=== PATIENT | male | born 1945 | race Two or more races ===

== ENCOUNTER 2021-01-11 12:01 | Emergency (ER) | payer MEDICARE, SELFPAY ==
--- NOTE | ~2021-01-11 | US_ITS ---
EXAMINATION: US SCROTUM CLINICAL INFORMATION: Pain. History of pump. COMPARISON: None TECHNIQUE: A sonogram of the scrotum was performed assessing malin-scale appearance and color Doppler flow. Spectral Doppler analysis of the arterial and venous flow were performed in the testes bilaterally. FINDINGS: RIGHT: Right testicle measures 4.4 x 1.7 x 3.1 cm, volume 11.6 mL. Tiny incidental calcifications but no focal testicular parenchymal lesions are visualized. Spectral Doppler analysis of the arterial and venous flow is normal in the right testis. Right epididymal head is normal in size. Small right hydrocele with debris. No varicocele is seen. Right epididymal Doppler flow is normal. LEFT: Left testicle measures 4.0 x 1.9 x 2.9 cm, volume 11.2 mL. Tiny cortical calcifications. Focal testicular parenchymal lesions are visualized. Spectral Doppler analysis of the arterial and venous flow is normal in the left testis. Left epididymal head is normal in size. Small left hydrocele with debris. No varicocele is seen. Left epididymal Doppler flow is normal. Small left inguinal hernia cannot be excluded. Midline pump is partially visualized on the study US/US scrotum doppler IMPRESSION: Tiny calcifications bilaterally. Tiny bilateral hydroceles. Testicles and epididymides unremarkable otherwise. Midline pump is partially visualized but difficult to define further on this ultrasound.
--- NOTE | ~2021-01-11 | US_ITS ---
EXAMINATION: US SCROTUM CLINICAL INFORMATION: Pain. History of pump. COMPARISON: None TECHNIQUE: A sonogram of the scrotum was performed assessing malin-scale appearance and color Doppler flow. Spectral Doppler analysis of the arterial and venous flow were performed in the testes bilaterally. FINDINGS: RIGHT: Right testicle measures 4.4 x 1.7 x 3.1 cm, volume 11.6 mL. Tiny incidental calcifications but no focal testicular parenchymal lesions are visualized. Spectral Doppler analysis of the arterial and venous flow is normal in the right testis. Right epididymal head is normal in size. Small right hydrocele with debris. No varicocele is seen. Right epididymal Doppler flow is normal. LEFT: Left testicle measures 4.0 x 1.9 x 2.9 cm, volume 11.2 mL. Tiny cortical calcifications. Focal testicular parenchymal lesions are visualized. Spectral Doppler analysis of the arterial and venous flow is normal in the left testis. Left epididymal head is normal in size. Small left hydrocele with debris. No varicocele is seen. Left epididymal Doppler flow is normal. Small left inguinal hernia cannot be excluded. Midline pump is partially visualized on the study US/US scrotum IMPRESSION: Tiny calcifications bilaterally. Tiny bilateral hydroceles. Testicles and epididymides unremarkable otherwise. Midline pump is partially visualized but difficult to define further on this ultrasound.
[2021-01-11 12:32] VITALS: BP 171/84; PULSE 85; RESP 18; TEMP 36.7; O2SAT 100; BMI 30.8
--- NOTE | 2021-01-11 17:28 | ED.MALEGU ---
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 pylori who is presenting with dysuria for the last 6 weeks. He reports difficulty urinating and tender penile base and testicles. He states he is up 15 times per night trying to empty his bladder. He denies hematuria, fever, chills, flank pain. He reports intermittent suprapubic pain when he can't empty his bladder. He had not followed up with Urology in a long time, because he did not get along with the doctor. MD Complaint: dysuria Onset (ago): week(s) (6) Duration: constant Location: penis, right testicle and left testicle Radiation: abdomen Severity: moderate Quality: aching and burning Relieving factors: none Exacerbating factors: urination and palpation Associated symptoms: Reports urinary retention and dysuria Related Data Sexually active: Yes Home Medications Medication Instructions Recorded Confirmed ibuprofen 800 mg tablet 800 mg PO TID 08/06/20 lisinopril 10 mg tablet 10 mg PO DAILY 08/06/20 Previous Rx's Medication Instructions Recorded omeprazole 20 mg capsule,delayed 20 mg PO DAILY 90 Days #90 cap 09/22/20 release meclizine 25 mg tablet 25 mg PO DAILY PRN 30 Days #30 tab 12/01/20 cefuroxime axetil 250 mg PO BID 7 Days #14 tab 01/11/21 Allergies Allergy/AdvReac Type Severity Reaction Status Date / Time No Known Allergies Allergy Verified 01/11/21 12:38 [No Known Allergies*] Review of Systems Review of Systems: Constitutional: No Fever, No Chills Cardiovascular: No Chest Pain, No SOB Respiratory: No Cough, No Sputum Gastrointestinal: No Nausea, No Vomiting, No Diarrhea, No abdominal Pain Genitourinary: + Dysuria, + Urinary Frequency, No Hematuria, +urgency, +testicular tenderness Musculoskeletal: No joint pain, No Myalgias Skin: No Skin Lesions, No rash Neuro: No Weakness, No Numbness, No Dizziness, No Headache Psych: No Anxiety/Panic, No Depression Heme/Lymph: No Bruising, No Lymphadenopathy Endocrine: No Polyuria, No Polydipsia PMFSH Past Medical History Attestation statement: The following information was validated with the patient. Medical History Dizziness Hypertension Loss of balance Surgical History (Updated 08/06/20 @ 13:14 by ASIYA Gray) History of kidney stones History of prostatectomy Hx laparoscopic cholecystectomy Family History Family History (Updated 08/06/20 @ 13:15 by ASIYA Gray) Father No problems noted. Mother Cancer Maternal Grandfather Cancer Social History Social History (Updated 12/01/20 @ 10:50 by Hiral Nicole) Alcohol intake: former Smoking Status: Former smoker Tobacco Type: Cigarette Use of substances other than those prescribed or required for medical reasons: No Advance Directives: No Advance Directives Information Provided: No Physical Exam Vital Signs: Vital Signs: Last Vital Signs Temp 97.5 F 01/11/21 20:22 Pulse 94 01/11/21 20:22 Resp 18 01/11/21 20:22 BP 146/87 H 01/11/21 20:22 Pulse Ox 97 01/11/21 20:22 Body Mass Index 30.8 Appearance: Alert. Oriented X3. No acute distress. Eyes: Pupils equal, round and reactive to light. ENT: Pharynx normal. Neck: Normal inspection. Neck supple. CVS: Normal heart rate and rhythm. Pulses normal. Respiratory: No respiratory distress. Breath sounds normal. Abdomen: Soft, suprapubic tenderness. +BS x4 : palpable penile implant, tender at the penile base. tender epididymus bilaterally, no skin changes, no penile discharge at meatus. Skin: Skin warm and dry. Normal skin color. Normal skin turgor. No rashes. Extremities: No lower extremity edema. Neuro: Oriented X 3. No motor deficit. No sensory deficit. Course Course Course Narrative: 75 y/o male presenting with dysuria, urinary frequency and difficulty emptying his bladder. Seems these issues have been on/off for years, acutely worsening in the last few weeks. He is afebrile and non-toxic appearing. Doubt sepsis. He has no flank pain or hematuria, doubt kidney stones. Will get basic blood workup and UA w/ reflex, PVR. He had bloodwork done end of November that showed BUN/Cr 17/.51 he reports a history of chronic kidney disease but does not know his baseline kidney function off hand. Will need to r/o obstructive uropathy if renal function is acutely worsening. Reevaluation(s) Reevaluation #1: UA is positive for infection. Dose of IV rocephin given here. Awaiting chemistry, hemolyzed and took multiple attempts at redraw. PVR negative. Reevaluation #2: Labs showing slight worsening in his renal function. but he is voiding well here. Comfortable with discharge home with plans to get bloodwork done by his PCP later this week. Will treat UTI with Ceftin. Patient agrees wtih the plan and will contact his PCP tomorrow to arrange follow up and repeat blood work. MDM - Male Genitourinary Lab Data Result diagrams: 01/11/21 17:49 01/11/21 20:20 Labs: Lab Results 01/11/21 01/11/21 01/11/21 Range/Units 17:49 17:49 17:55 WBC 9.4 (4.8-10.8) X10*3/uL RBC 4.55 L (4.60-5.80) X10*6/uL Hgb 13.1 L (14.0-18.0) g/dl Hct 41.4 L (42-52) % MCV 91.0 (80-98) fL MCH 28.8 (27.0-33.0) pg MCHC 31.6 (31.0-36.0) g/dl RDW 13.7 (11.0-16.0) % Plt Count 265 (160-400) X10*3/uL MPV 9.8 (9.4-12.4) fL Immature Gran % (Auto) 0.5 H (0.0-0.4) % Neut % (Auto) 85.5 H (45-73) % Lymph % (Auto) 7.4 L (20-40) % [place] % (Auto) 5.2 (2-11) % Eos % (Auto) 1.1 (0-4) % Baso % (Auto) 0.3 (0-2) % Lymph # (Auto) 0.7 L (1.2-4.9) X10*3/uL [place] # (Auto) 0.5 (0.1-1.2) X10*3/uL Eos # (Auto) 0.1 (0.0-0.4) X10*3/uL Baso # (Auto) 0.0 (0.0-0.2) X10*3/uL Abs Immat Gran (auto) 0.05 H (0.00-0.03) X10*3/uL Absolute Neuts (auto) 8.1 (2.0-8.3) X10*3/uL Absolute Nucleated RBC 0.000 (0.0-0.012) X10*3/uL Nucleated RBC % (auto) 0.0 (0.0-0.2) /100WBC Hold Blue Top SEE NOTE Sodium (135-145) mmol/L Potassium (3.3-5.1) mmol/L Chloride (96-108) mmol/L Carbon Dioxide (22-29) mmol/L Anion Gap (12-20) BUN (9-16) mg/dL Creatinine (0.5-1.4) mg/dL Estim Creat Clear Calc Estimated GFR Random Glucose (60-115) mg/dL Calcium (8.4-10.2) mg/dL Urine Color YELLOW Urine Appearance HAZY Urine pH 6.0 (5.0-8.0) Ur Specific [place] 1.020 (1.005-1.025) Urine Protein 2+ H (NEG-TRACE) MG/DL Urine Glucose (UA) NEG (NEG) MG/DL Urine Ketones 5 (NEG) MG/DL Urine Blood 2+ H (NEG) Urine Nitrite NEG (NEG) Ur Leukocyte Esterase 2+ H (NEG) Urine RBC 10-14 H (0) /HPF Urine WBC TNTC H (0-4) /HPF Ur Squamous Epith Cells NONE /LPF Urine Bacteria 2+ /LPF 01/11/21 Range/Units 20:20 WBC (4.8-10.8) X10*3/uL RBC (4.60-5.80) X10*6/uL Hgb (14.0-18.0) g/dl Hct (42-52) % MCV (80-98) fL MCH (27.0-33.0) pg MCHC (31.0-36.0) g/dl RDW (11.0-16.0) % Plt Count (160-400) X10*3/uL MPV (9.4-12.4) fL Immature Gran % (Auto) (0.0-0.4) % Neut % (Auto) (45-73) % Lymph % (Auto) (20-40) % [place] % (Auto) (2-11) % Eos % (Auto) (0-4) % Baso % (Auto) (0-2) % Lymph # (Auto) (1.2-4.9) X10*3/uL [place] # (Auto) (0.1-1.2) X10*3/uL Eos # (Auto) (0.0-0.4) X10*3/uL Baso # (Auto) (0.0-0.2) X10*3/uL Abs Immat Gran (auto) (0.00-0.03) X10*3/uL Absolute Neuts (auto) (2.0-8.3) X10*3/uL Absolute Nucleated RBC (0.0-0.012) X10*3/uL Nucleated RBC % (auto) (0.0-0.2) /100WBC Hold Blue Top Sodium 139 (135-145) mmol/L Potassium 4.6 (3.3-5.1) mmol/L Chloride 104 (96-108) mmol/L Carbon Dioxide 25 (22-29) mmol/L Anion Gap 15 (12-20) BUN 21 H (9-16) mg/dL Creatinine 1.78 H (0.5-1.4) mg/dL Estim Creat Clear Calc 39.4 Estimated GFR 38 Random Glucose 127 H (60-115) mg/dL Calcium 9.1 (8.4-10.2) mg/dL Urine Color Urine Appearance Urine pH (5.0-8.0) Ur Specific [place] (1.005-1.025) Urine Protein (NEG-TRACE) MG/DL Urine Glucose (UA) (NEG) MG/DL Urine Ketones (NEG) MG/DL Urine Blood (NEG) Urine Nitrite (NEG) Ur Leukocyte Esterase (NEG) Urine RBC (0) /HPF Urine WBC (0-4) /HPF Ur Squamous Epith Cells /LPF Urine Bacteria /LPF Discharge Plan Discharge Clinical Impression: Urinary tract infection Qualifiers: Urinary tract infection type: acute cystitis Hematuria presence: with hematuria Qualified Code(s): N30.01 - Acute cystitis with hematuria Patient Disposition: Home, Self-Care Instructions: Urinary Tract Infection in Men (ED) Additional Instructions: Your urine test today showed infection. Take the prescribed antibiotics as directed. You kidney function with slightly worse than it was at the end of November. Follow up with your doctor this week for repeat blood work. Do not take any NSAID medications including Motrin, Advil, Ibuprofen. This can worsen kidney problems. Follow up with the Urologist for ongoing issues and pain. Prescriptions: New cefuroxime axetil 250 mg tablet 250 mg PO BID 7 Days Qty: 14 RF: 0 No Action omeprazole 20 mg capsule,delayed release(DR/EC) 20 mg PO DAILY 90 Days Qty: 90 RF: 3 ibuprofen 800 mg tablet 800 mg PO TID RF: 0 lisinopril 10 mg tablet 10 mg PO DAILY RF: 0 meclizine 25 mg tablet 25 mg PO DAILY PRN (Reason: motion sickness) 30 Days Qty: 30 RF: 0 Referrals: John Osman MD [Physician] - 2 days
[2021-01-11 17:56] VITALS: BP 142/81; PULSE 100; RESP 18; TEMP 37.6; O2SAT 99
[2021-01-11 17:56] LABS: MANUAL DIFF FLAG NO
[2021-01-11 17:59] LABS: Basophils Percent Auto 0.3 % (0-2); Eosinophils Absolute Auto 0.1 X10*3/uL (0.0-0.4); Eosinophils Percent Auto 1.1 % (0-4); Hematocrit 41.4 % (42-52); Hemoglobin 13.1 g/dl (14.0-18.0); Imm Gran Abs Auto 0.05 X10*3/uL (0.00-0.03); Imm Gran Pct Auto 0.5 % (0.0-0.4); Lymphocytes Absolute Auto 0.7 X10*3/uL (1.2-4.9); Lymphocytes Percent Auto 7.4 % (20-40); Mean Corpuscular HGB Conc 31.6 g/dl (31.0-36.0); Mean Corpuscular Hemoglobin 28.8 pg (27.0-33.0); Mean Platelet Volume 9.8 fL (9.4-12.4); Monocytes Absolute Auto 0.5 X10*3/uL (0.1-1.2); Monocytes Percent Auto 5.2 % (2-11); Neutrophils Absolute Auto 8.1 X10*3/uL (2.0-8.3); Neutrophils Percent Auto 85.5 % (45-73); Platelet Count 265 X10*3/uL (160-400); Red Blood Count 4.55 X10*6/uL (4.60-5.80); Red Cell Distribution Width 13.7 % (11.0-16.0); White Blood Count 9.4 X10*3/uL (4.8-10.8)
--- NOTE | 2021-01-11 17:59 | PC.NURSE ---
iv inserted, labs drawn, urine obtained, pt awaiting us.
[2021-01-11 18:04] LABS: Glucose Urine UA NEG (NEG); Leukocyte Esterase Urine 2+ (NEG); Nitrite Urine NEG (NEG); UACC Culture Trigger YES; Urine Blood 2+ (NEG); Urine Ketones 5 MG/DL (NEG); Urine Protein 2+ MG/DL (NEG-TRACE)
[2021-01-11 18:06] LABS: Appearance Urine HAZY; Color Urine YELLOW
--- NOTE | 2021-01-11 18:08 | PC.NURSE ---
bladder scan performed
[2021-01-11 18:18] LABS: WBC Urine TNTC /HPF (0-4)
[2021-01-11 18:19] LABS: Bacteria Urine 2+ /LPF
[2021-01-11] MEDS: cefTRIAXone sodium 1 GM in 0.9 % Sodium Chloride 50 ML IV (19:52)
--- NOTE | 2021-01-11 20:19 | PC.NURSE ---
iv antibiotics running per order
[2021-01-11 20:22] VITALS: BP 146/87; PULSE 94; RESP 18; TEMP 36.4; O2SAT 97
[2021-01-11 20:55] LABS: Anion Gap 15 (12-20); Blood Urea Nitrogen 21 mg/dL (9-16); Calcium 9.1 mg/dL (8.4-10.2); Carbon Dioxide 25 mmol/L (22-29); Chloride 104 mmol/L (96-108); Creatinine Clr Calc Pharmacy 39.4; Estimated Glomerular Filt Rate 38; Glucose Random 127 mg/dL (60-115); Potassium 4.6 mmol/L (3.3-5.1); Sodium 139 mmol/L (135-145)
== END 2021-01-11 22:04 | disposition home or self-care (01) ==
PROVIDERS: Physician Assistant; Emergency Provider Internal Medicine; PCP Internal Medicine
DX: N30.01 Acute cystitis with hematuria (principal); I12.9 Hypertensive chronic kidney disease with stage 1 through stage 4 chronic kidney disease, or unspecified chronic kidney disease; N18.9 Chronic kidney disease, unspecified; Z85.46 Personal history of malignant neoplasm of prostate; F17.210 Nicotine dependence, cigarettes, uncomplicated
CPT/HCPCS: 36415; 51798; 76870; 80048; 81001; 81003; 85025; 87086; 87088; 87186; 93975; 96361; 96365; 99285; J0696

== ENCOUNTER 2021-01-19 07:57 | Outpatient (REF) | payer MEDICARE, SELFPAY ==
--- NOTE | ~2021-01-19 | US_ITS ---
EXAMINATION: US RETROPERITONEAL LIMITED (RENAL ONLY) CLINICAL INFORMATION: Chronic kidney disease stage III. COMPARISON: Ultrasound renal 07/13/2016 and 03/06/2015. TECHNIQUE: Real-time imaging of the kidneys. FINDINGS: RIGHT KIDNEY: 10.1 x 4.9 x 4.9 cm (SAG x AP x TRV). The kidney is normal in size, contour, and echogenicity. Renal cortical thickness is normal. No renal calculi or hydronephrosis. There are multiple anechoic cysts. 1. Upper pole cyst measures 2.1 x 1.8 x 2.2 cm. 2. Midpole cyst measures 3.8 x 3.5 x 3.9 cm and 2.8 x 2.3 x 3.1 cm. 3. Lower pole cyst measures 1.2 x 1.2 x 1.0 cm. The cyst were visualized on previous exam but not measured. LEFT KIDNEY: 10.8 x 5.0 x 4.6 cm (SAG x AP x TRV). The kidney is normal in size, lobulated contour, and normal echogenicity. Renal cortical thickness is normal. No renal calculi or hydronephrosis. There are multiple anechoic cysts seen. 1. A midpole cyst measures 2.5 x 2.9 x 2.8 cm and 0.8 x 0.7 x 0.8 cm. 2. A lower pole cyst measures 1.1 x 1.3 x 1.3 cm. These were not reported on the previous exam 2015. US/US renal BI IMPRESSION: Bilateral renal cysts which are more obvious on the present exam compared to 2016. There are no echogenic renal calculi or hydronephrosis.
[2021-01-19 08:48] LABS: Hematocrit 44.7 % (42-52); Hemoglobin 13.5 g/dl (14.0-18.0); Mean Corpuscular HGB Conc 30.2 g/dl (31.0-36.0); Mean Corpuscular Volume 92.5 fL (80-98); Mean Platelet Volume 10.8 fL (9.4-12.4); Platelet Count 388 X10*3/uL (160-400); Red Blood Count 4.83 X10*6/uL (4.60-5.80); Red Cell Distribution Width 13.6 % (11.0-16.0)
[2021-01-19 09:21] LABS: Anion Gap 15 (12-20); Blood Urea Nitrogen 30 mg/dL (9-16); Carbon Dioxide 26 mmol/L (22-29); Chloride 103 mmol/L (96-108); Estimated Glomerular Filt Rate 39; Iron 69 mcg/dL (45-160); Magnesium 2.1 mg/dL (1.6-2.6); Percent Iron Saturation 26 % (15-50); Potassium 5.8 mmol/L (3.3-5.1); Sodium 138 mmol/L (135-145); Total Iron Binding Capacity 268 mcg/dL (228-428); Unsaturated Iron Binding 199 ug/dL
[2021-01-19 09:34] LABS: Ferritin 224 ng/mL (20-250); Vitamin D 25-OH Total 31.9 ng/mL (>30)
[2021-01-20 16:36] LABS: Calcium (PTHI) 10.2 mg/dL (8.6-10.3); PTHI 73 pg/mL (14-64)
== END 2021-01-19 07:58 | disposition home or self-care (01) ==
LOC: HO.US 07:57
PROVIDERS: PCP Internal Medicine; Visit Provider Internal Medicine Nephrology
DX: I12.9 Hypertensive chronic kidney disease with stage 1 through stage 4 chronic kidney disease, or unspecified chronic kidney disease (principal); N18.30 Chronic kidney disease, stage 3 unspecified
CPT/HCPCS: 36415; 76775; 80051; 82306; 82310; 82565; 82728; 83540; 83735; 83970; 84100; 84520; 85027

== ENCOUNTER → 2021-02-02 08:54 | Outpatient (BNVA) | payer MEDICARE, SELFPAY | PROVIDERS: PCP Internal Medicine; Visit Provider Urology | DX: N39.0 Urinary tract infection, site not specified (principal); C61 Malignant neoplasm of prostate; N99.89 Other postprocedural complications and disorders of genitourinary system | CPT/HCPCS: 99212 ==

== ENCOUNTER 2021-02-10 13:31 | Emergency (ER) | payer MEDICARE, SELFPAY ==
--- NOTE | ~2021-02-10 | US_ITS ---
EXAMINATION: US SCROTUM CLINICAL INFORMATION: Bilateral testicular pain with positive drainage.. COMPARISON: None TECHNIQUE: A sonogram of the scrotum was performed assessing malin-scale appearance and color Doppler flow. Spectral Doppler analysis of the arterial and venous flow were performed in the testes bilaterally. FINDINGS: RIGHT: Right testicle measures 3.6 x 1.9 x 2.6 cm, volume 9.3 mL. No focal testicular parenchymal lesions are visualized. Spectral Doppler analysis of the arterial and venous flow is normal in the right testis. There is echogenic calcification in right testes. Right epididymal head is normal in size. There is a small right hydrocele. No varicocele is seen. Right epididymal Doppler flow is increased likely from underlying epididymitis. LEFT: Left testicle measures 3.9 x 2.3 x 2.4 cm, volume 11.3 mL. There is mild heterogenous echotexture of the left testes. Spectral Doppler analysis of the arterial and venous flow is increased in the left testis. Left epididymal head is normal in size. There is anechoic cyst in the epidural head measuring 0.2 x 0.1 x 0.2 cm. Small left hydrocele is noted. No varicocele is seen. Left epididymal Doppler flow is increased. There is hypervascular scrotal skin. There are 2 larger lumps visualized within the scrotum. Suspect small left scrotal hernia. US/US scrotum doppler IMPRESSION: Heterogeneous left testes but no focal lesion seen. Hypervascular left testes, left epididymis likely epididymo-orchitis. Hypervascular right epididymis likely epididymitis. Bilateral small hydroceles. Nonspecific right testicular calcification. Small left epididymal cyst. Suspect left scrotal hernia containing fat. Hypervascular scrotal skin likely inflammatory changes.
--- NOTE | ~2021-02-10 | US_ITS ---
EXAMINATION: US SCROTUM CLINICAL INFORMATION: Bilateral testicular pain with positive drainage.. COMPARISON: None TECHNIQUE: A sonogram of the scrotum was performed assessing malin-scale appearance and color Doppler flow. Spectral Doppler analysis of the arterial and venous flow were performed in the testes bilaterally. FINDINGS: RIGHT: Right testicle measures 3.6 x 1.9 x 2.6 cm, volume 9.3 mL. No focal testicular parenchymal lesions are visualized. Spectral Doppler analysis of the arterial and venous flow is normal in the right testis. There is echogenic calcification in right testes. Right epididymal head is normal in size. There is a small right hydrocele. No varicocele is seen. Right epididymal Doppler flow is increased likely from underlying epididymitis. LEFT: Left testicle measures 3.9 x 2.3 x 2.4 cm, volume 11.3 mL. There is mild heterogenous echotexture of the left testes. Spectral Doppler analysis of the arterial and venous flow is increased in the left testis. Left epididymal head is normal in size. There is anechoic cyst in the epidural head measuring 0.2 x 0.1 x 0.2 cm. Small left hydrocele is noted. No varicocele is seen. Left epididymal Doppler flow is increased. There is hypervascular scrotal skin. There are 2 larger lumps visualized within the scrotum. Suspect small left scrotal hernia. US/US scrotum IMPRESSION: Heterogeneous left testes but no focal lesion seen. Hypervascular left testes, left epididymis likely epididymo-orchitis. Hypervascular right epididymis likely epididymitis. Bilateral small hydroceles. Nonspecific right testicular calcification. Small left epididymal cyst. Suspect left scrotal hernia containing fat. Hypervascular scrotal skin likely inflammatory changes.
[2021-02-10 14:06] VITALS: BP 128/89; PULSE 92; RESP 16; TEMP 36.8; O2SAT 99; BMI 29.2
--- NOTE | 2021-02-10 14:59 | ED.MALEGU ---
HPI - Male Genitourinary General Chief complaint: Urogenital-Male Stated complaint: URINARY INFECTION Time Seen by Provider: 02/10/21 14:23 Source: patient Mode of arrival: ambulatory History of Present Illness HPI Narrative: 75-year-old male with a past medical history of GERD, HTN, prostate cancer, urgency incontinence, anastomotic stricture of the urinary tract, s/p penile prosthetic placement, presenting to the ED complaining of acute on chronic worsening scrotal pain and pus discharge x 3-5 days. Also reporting urine is coming from beneath penis rather than urethra. Admits to dysuria. Denies fever, chills, nausea/vomiting, abdominal pain, flank pain, penile discharge/lesions. Denies being sexually active/concern for STIs MD Complaint: testicle pain, testicle swelling and dysuria Related Data Home Medications Medication Instructions Recorded Confirmed ibuprofen 800 mg tablet 800 mg PO TID 08/06/20 lisinopril 10 mg tablet 10 mg PO DAILY 08/06/20 clindamycin HCl 150 mg capsule 150 mg PO Q6H 02/02/21 Previous Rx's Medication Instructions Recorded omeprazole 20 mg capsule,delayed 20 mg PO DAILY 90 Days #90 cap 09/22/20 release meclizine 25 mg tablet 25 mg PO DAILY PRN 30 Days #30 tab 12/01/20 cefuroxime axetil 250 mg PO BID 7 Days #14 tab 01/11/21 Allergies Allergy/AdvReac Type Severity Reaction Status Date / Time No Known Allergies Allergy Verified 01/11/21 12:38 [No Known Allergies*] Review of Systems Review of Systems: Constitutional: No Fever, No Chills, No Fatigue, No Malaise Cardiovascular: No Chest Pain, No SOB Respiratory: No Cough, No Dyspnea Gastrointestinal: No Nausea, No Vomiting, No Diarrhea, No Constipation, No Abdominal pain Genitourinary: No irregular bleeding, + Dysuria, No Hematuria, No Urgency, No Flank Pain, No Urinary Flow Changes, +scrotal pain, +scrotal pus discharge Musculoskeletal: No joint pain, No Myalgias, No Joint Swelling Skin: No Skin Lesions, No rash Neuro: No Weakness, No Numbness, No Headache PMFSH Past Medical History Attestation statement: The following information was validated with the patient. Medical History (Updated 02/10/21 @ 18:06 by JUAN M Perez) Anastomotic stricture of urinary tract Dizziness GERD (gastroesophageal reflux disease) HTN (hypertension) Hypertension Loss of balance Prostate cancer Urgency incontinence Surgical History History of kidney stones History of prostatectomy History of prostatectomy Hx laparoscopic cholecystectomy Family History Family History Father No problems noted. Mother Cancer Maternal Grandfather Cancer Social History Social History Alcohol intake: never Smoking Status: Heavy tobacco smoker Tobacco Type: Cigarette Use of substances other than those prescribed or required for medical reasons: No Advance Directives: No Advance Directives Information Provided: No Physical Exam Vital Signs: Vital Signs: Last Vital Signs Temp 99.0 F 02/10/21 16:38 Pulse 90 02/10/21 16:38 Resp 18 02/10/21 16:38 BP 106/79 02/10/21 16:38 Pulse Ox 100 02/10/21 16:38 Body Mass Index 29.2 Const: General: cooperative and healthy appearing Orientation/consciousness: patient oriented x3 Limitations: no limitations HENMT: Head: Yes normal to inspection Ears: hearing grossly normal bilaterally General nose exam: Normal external nose present Face and sinus: Yes normal facial exam Eyes: General: appearance normal, both eyes and all related structures EOM: EOMs intact bilaterally Neck: Neck: Yes normal visual inspection Resp: Effort & Inspection: normal respiratory effort Cardio: Rate: regular rate GI: Inspection: Yes normal to inspection Palpation (GI): Soft to palpation, nontender, no guarding and not rigid : Other: +bilateral scrotal tenderness. +indurated area noted to superior aspect testicles, no expressible pus drainage, no fluctuance, no cellulitis No appreciable extra urethral tract Penis: circumcised Skin: Rashes: no rashes Wounds: no wounds Neuro: General: patient oriented x3 Extrem: General: Yes normal to inspection Course Course Course Narrative: -no leukocytosis, potassium mildly elevated > p.o. Kayexalate ordered -renal function at patient's baseline, UA chronically infected (milton sensitive on prior Cx) US scrotum IMPRESSION: Heterogeneous left testes but no focal lesion seen. Hypervascular left testes, left epididymis likely epididymo-orchitis. Hypervascular right epididymis likely epididymitis. Bilateral small hydroceles. Nonspecific right testicular calcification. Small left epididymal cyst. Suspect left scrotal hernia containing fat. Hypervascular scrotal skin likely inflammatory changes >> Case discussed with urology, Dr. Osman who evaluated patient in the ED, recommended initiation of Bactrim. Patient was given 1st dose of Bactrim in the ED. Patient is already scheduled for the OR on Monday. Results were discussed with patient including worrisome signs and symptoms and strict return precautions, importance of procedure on Monday, he verbalized understanding feel safe for discharge home MDM - Male Genitourinary MDM Narrative Medical decision making narrative: 75-year-old male with a past medical history of GERD, HTN, prostate cancer, urgency incontinence, anastomotic stricture of the urinary tract, s/p penile prosthetic placement, presenting to the ED complaining of acute on chronic worsening scrotal pain and pus discharge x 3-5 days. Also reporting urine is coming from beneath penis rather than urethra. On exam VSS, NAD, physical exam as above. Concern for UTI vs scrotal abscess vs epididymitis/orchitis vs penile implant complication/infection. Lower concern for testicular torsion/pyelo/renal stone Plan: Labs, UA, testicular ultrasound, consult Urology Medical Records Attestation: I reviewed the patient's medical records. Lab Data Attestation: I reviewed the patient's lab results. Result diagrams: 02/10/21 15:07 02/10/21 15:07 Labs: Lab Results 02/10/21 02/10/21 02/10/21 Range/Units 15:07 15:07 15:07 WBC 8.8 (4.8-10.8) X10*3/uL RBC 4.20 L (4.60-5.80) X10*6/uL Hgb 11.8 L (14.0-18.0) g/dl Hct 38.1 L (42-52) % MCV 90.7 (80-98) fL MCH 28.1 (27.0-33.0) pg MCHC 31.0 (31.0-36.0) g/dl RDW 13.5 (11.0-16.0) % Plt Count 274 D (160-400) X10*3/uL MPV 9.5 (9.4-12.4) fL Immature Gran % (Auto) 1.3 H (0.0-0.4) % Neut % (Auto) 67.7 (45-73) % Lymph % (Auto) 19.3 L (20-40) % [place] % (Auto) 9.7 (2-11) % Eos % (Auto) 1.7 (0-4) % Baso % (Auto) 0.3 (0-2) % Lymph # (Auto) 1.7 (1.2-4.9) X10*3/uL [place] # (Auto) 0.9 (0.1-1.2) X10*3/uL Eos # (Auto) 0.2 (0.0-0.4) X10*3/uL Baso # (Auto) 0.0 (0.0-0.2) X10*3/uL Abs Immat Gran (auto) 0.11 H (0.00-0.03) X10*3/uL Absolute Neuts (auto) 5.9 (2.0-8.3) X10*3/uL Absolute Nucleated RBC 0.000 (0.0-0.012) X10*3/uL Nucleated RBC % (auto) 0.0 (0.0-0.2) /100WBC Hold Blue Top SEE NOTE Sodium 138 (135-145) mmol/L Potassium 5.5 H (3.3-5.1) mmol/L Chloride 105 (96-108) mmol/L Carbon Dioxide 23 (22-29) mmol/L Anion Gap 16 (12-20) BUN 28 H (9-16) mg/dL Creatinine 1.65 H (0.5-1.4) mg/dL Estim Creat Clear Calc 41.5 Estimated GFR 41 Random Glucose 100 (60-115) mg/dL Calcium 9.7 (8.4-10.2) mg/dL Urine Color Urine Appearance Urine pH (5.0-8.0) Ur Specific [place] (1.005-1.025) Urine Protein (NEG-TRACE) MG/DL Urine Glucose (UA) (NEG) MG/DL Urine Ketones (NEG) MG/DL Urine Blood (NEG) Urine Nitrite (NEG) Ur Leukocyte Esterase (NEG) Urine RBC (0) /HPF Urine WBC (0-4) /HPF Ur Squamous Epith Cells /LPF Urine Bacteria /LPF 02/10/21 Range/Units 16:40 WBC (4.8-10.8) X10*3/uL RBC (4.60-5.80) X10*6/uL Hgb (14.0-18.0) g/dl Hct (42-52) % MCV (80-98) fL MCH (27.0-33.0) pg MCHC (31.0-36.0) g/dl RDW (11.0-16.0) % Plt Count (160-400) X10*3/uL MPV (9.4-12.4) fL Immature Gran % (Auto) (0.0-0.4) % Neut % (Auto) (45-73) % Lymph % (Auto) (20-40) % [place] % (Auto) (2-11) % Eos % (Auto) (0-4) % Baso % (Auto) (0-2) % Lymph # (Auto) (1.2-4.9) X10*3/uL [place] # (Auto) (0.1-1.2) X10*3/uL Eos # (Auto) (0.0-0.4) X10*3/uL Baso # (Auto) (0.0-0.2) X10*3/uL Abs Immat Gran (auto) (0.00-0.03) X10*3/uL Absolute Neuts (auto) (2.0-8.3) X10*3/uL Absolute Nucleated RBC (0.0-0.012) X10*3/uL Nucleated RBC % (auto) (0.0-0.2) /100WBC Hold Blue Top Sodium (135-145) mmol/L Potassium (3.3-5.1) mmol/L Chloride (96-108) mmol/L Carbon Dioxide (22-29) mmol/L Anion Gap (12-20) BUN (9-16) mg/dL Creatinine (0.5-1.4) mg/dL Estim Creat Clear Calc Estimated GFR Random Glucose (60-115) mg/dL Calcium (8.4-10.2) mg/dL Urine Color YELLOW Urine Appearance CLOUDY Urine pH 6.0 (5.0-8.0) Ur Specific [place] 1.015 (1.005-1.025) Urine Protein NEG (NEG-TRACE) MG/DL Urine Glucose (UA) NEG (NEG) MG/DL Urine Ketones NEG (NEG) MG/DL Urine Blood 1+ H (NEG) Urine Nitrite NEG (NEG) Ur Leukocyte Esterase 3+ H (NEG) Urine RBC 5-9 H (0) /HPF Urine WBC TNTC H (0-4) /HPF Ur Squamous Epith Cells NONE /LPF Urine Bacteria 2+ /LPF Discharge Plan Discharge Clinical Impression: Acute epididymo-orchitis, Chronic UTI, Abscess Patient Disposition: Home, Self-Care Instructions: Urinary Tract Infection in Men (ED), Scrotal Pain (ED) Prescriptions: No Action omeprazole 20 mg capsule,delayed release(DR/EC) 20 mg PO DAILY 90 Days Qty: 90 RF: 3 cefuroxime axetil 250 mg tablet 250 mg PO BID 7 Days Qty: 14 RF: 0 ibuprofen 800 mg tablet 800 mg PO TID RF: 0 lisinopril 10 mg tablet 10 mg PO DAILY RF: 0 meclizine 25 mg tablet 25 mg PO DAILY PRN (Reason: motion sickness) 30 Days Qty: 30 RF: 0 Referrals: John Osman MD [Primary Care Provider] - 5 days (As scheduled)
[2021-02-10 15:12] LABS: MANUAL DIFF FLAG NO
[2021-02-10 15:13] LABS: Basophils Percent Auto 0.3 % (0-2); Eosinophils Absolute Auto 0.2 X10*3/uL (0.0-0.4); Eosinophils Percent Auto 1.7 % (0-4); Hematocrit 38.1 % (42-52); Hemoglobin 11.8 g/dl (14.0-18.0); Imm Gran Abs Auto 0.11 X10*3/uL (0.00-0.03); Imm Gran Pct Auto 1.3 % (0.0-0.4); Lymphocytes Absolute Auto 1.7 X10*3/uL (1.2-4.9); Lymphocytes Percent Auto 19.3 % (20-40); Mean Corpuscular Hemoglobin 28.1 pg (27.0-33.0); Mean Corpuscular Volume 90.7 fL (80-98); Mean Platelet Volume 9.5 fL (9.4-12.4); Monocytes Absolute Auto 0.9 X10*3/uL (0.1-1.2); Monocytes Percent Auto 9.7 % (2-11); Neutrophils Absolute Auto 5.9 X10*3/uL (2.0-8.3); Neutrophils Percent Auto 67.7 % (45-73); Platelet Count 274 X10*3/uL (160-400); Red Cell Distribution Width 13.5 % (11.0-16.0); White Blood Count 8.8 X10*3/uL (4.8-10.8)
[2021-02-10 15:43] LABS: Anion Gap 16 (12-20); Carbon Dioxide 23 mmol/L (22-29); Chloride 105 mmol/L (96-108); Creatinine Clr Calc Pharmacy 41.5; Estimated Glomerular Filt Rate 41; Glucose Random 100 mg/dL (60-115); Potassium 5.5 mmol/L (3.3-5.1); Sodium 138 mmol/L (135-145)
[2021-02-10 16:38] VITALS: BP 106/79; PULSE 90; RESP 18; TEMP 37.2; O2SAT 100
[2021-02-10] MEDS: 0.9 % Sodium Chloride 1,000 ML 999 ML IVCONT (16:42)
[2021-02-10] MEDS: Sodium Polystyrene Sulfon/Sorb 15 GM/60 ML ORAL.SUSP 30 GM PO (16:42)
[2021-02-10 16:49] LABS: Blood Urea Nitrogen 28 mg/dL (9-16); Calcium 9.7 mg/dL (8.4-10.2)
[2021-02-10 16:55] LABS: Glucose Urine UA NEG (NEG); Leukocyte Esterase Urine 3+ (NEG); Nitrite Urine NEG (NEG); Specific Gravity - Urine 1.015 (1.005-1.025); UACC Culture Trigger YES; Urine Blood 1+ (NEG); Urine Ketones NEG (NEG); Urine Protein NEG (NEG-TRACE)
[2021-02-10 16:57] LABS: Appearance Urine CLOUDY; Color Urine YELLOW
[2021-02-10 17:09] LABS: Bacteria Urine 2+ /LPF; WBC Urine TNTC /HPF (0-4)
[2021-02-10 18:00] VITALS: BP 102/84; PULSE 102; RESP 18; TEMP 37.2; O2SAT 100
== END 2021-02-10 18:20 | disposition home or self-care (01) ==
PROVIDERS: Physician Assistant; Emergency Provider Emergency Medicine Emergency Medical Services; PCP Urology
DX: N45.3 Epididymo-orchitis (principal); N39.0 Urinary tract infection, site not specified; R30.0 Dysuria; R10.9 Unspecified abdominal pain; F17.210 Nicotine dependence, cigarettes, uncomplicated; Z71.6 Tobacco abuse counseling; Z79.899 Other long term (current) drug therapy
CPT/HCPCS: 36415; 76870; 80048; 81001; 81003; 85025; 87086; 87088; 87186; 93975; 96360; 99284

== ENCOUNTER 2021-02-15 09:28 | Day surgery (SDC) | payer MEDICARE, SELFPAY ==
--- NOTE | 2021-02-11 14:57 | HO.ANESPROP2 ---
HPI - Anesthesia Eval Consult details Narrative: 75yo M for Cystoscopy PMF Active Problems Active Problems: All Active Problems (Updated 02/11/21 @ 00:00 by Background Daemon) Anastomotic stricture of urinary tract (Acute) Prostate cancer (Acute) Chronic UTI (urinary tract infection) (Acute) Hypertension (Acute) Loss of balance (Acute) Dizziness (Acute) Past Medical History Medical History (Updated 02/11/21 @ 00:00 by Background Daemon) Anastomotic stricture of urinary tract Dizziness GERD (gastroesophageal reflux disease) HTN (hypertension) Hypertension Loss of balance Prostate cancer Urgency incontinence Family History Family History Father No problems noted. Mother Cancer Maternal Grandfather Cancer Surgical History Surgical History History of kidney stones History of prostatectomy History of prostatectomy Hx laparoscopic cholecystectomy Social History Social History Alcohol intake: never Smoking Status: Former smoker Tobacco Type: Cigarette Use of substances other than those prescribed or required for medical reasons: No Advance Directives: No Advance Directives Information Provided: Yes Meds Allergies Allergy/AdvReac Type Severity Reaction Status Date / Time No Known Allergies Allergy Verified 01/11/21 12:38 [No Known Allergies*] Home Medications Medication Instructions Recorded Confirmed Last Taken Type ibuprofen 800 mg tablet 800 mg PO TID 08/06/20 Unknown History lisinopril 10 mg tablet 10 mg PO DAILY 08/06/20 Unknown History clindamycin HCl 150 mg capsule 150 mg PO Q6H 02/02/21 Unknown History Exam Exam Date and Time: February 11, 2021 6752
[2021-02-15] VITALS (10 sets, daily range): BP systolic 117–143; BP diastolic 70–87; PULSE 73–98; RESP 16–18; TEMP 35.9–36; O2SAT 97–100; BMI 30.8
[2021-02-15 11:11] LABS: Anion Gap 13 (12-20); Carbon Dioxide 24 mmol/L (22-29); Chloride 108 mmol/L (96-108); Sodium 140 mmol/L (135-145)
[2021-02-15] MEDS: Lactated Ringers 1,000 ML 100 ML IVCONT (11:56)
--- NOTE | 2021-02-15 13:33 | P.CONAN_ITS ---
[facility] Active Problems Active Problems: All Active Problems (Updated 02/11/21 @ 00:00 by Background Chase reyes) Anastomotic stricture of urinary tract (Acute) Prostate cancer (Acute) Chronic UTI (urinary tract infection) (Acute) Hypertension (Acute) Loss of balance (Acute) Dizziness (Acute) Past Medical History Medical History (Updated 02/11/21 @ 00:00 by Background Jaky) Anastomotic stricture of urinary tract Dizziness GERD (gastroesophageal reflux disease) HTN (hypertension) Hypertension Loss of balance Prostate cancer Urgency incontinence Family History Family History Father No problems noted. Mother Cancer Maternal Grandfather Cancer Surgical History Surgical History History of kidney stones History of prostatectomy History of prostatectomy Hx laparoscopic cholecystectomy Social History Social History Alcohol intake: never Smoking Status: Former smoker Tobacco Type: Cigarette Use of substances other than those prescribed or required for medical reasons: No Advance Directives: No Advance Directives Information Provided: Yes Meds Allergies Allergy/AdvReac Type Severity Reaction Status Date / Time No Known Allergies Allergy Verified 01/11/21 12:38 [No Known Allergies*] Active Medications: Current Medications Generic Name Dose Route Start Last Admin Trade Name Freq PRN Reason Stop Dose Admin Albuterol Sulfate 2.5 mg 02/15/21 10:29 Albuterol Sulfate (0.083%) 2.5 Mg/3 Ml Vial.Neb INHALE ONCE PRN Shortness of Breath/Wheezing Lactated Ringer's 1,000 mls @ 100 mls/hr 02/15/21 10:30 02/15/21 11:56 Lr IVCONT 100 mls/hr .Q10H JAM Administration Home Medications Medication Instructions Recorded Confirmed Last Taken Type ibuprofen 800 mg tablet 800 mg PO TID 08/06/20 Unknown History lisinopril 10 mg tablet 10 mg PO DAILY 08/06/20 Unknown History clindamycin HCl 150 mg capsule 150 mg PO Q6H 02/02/21 Unknown History Exam Exam Date and Time: February 15, 2021 1333 Height,Weight and Vital Signs: Height 5 ft 7 in Weight 89.358 kg Last Vital Signs Temp 96.7 F L 02/15/21 11:35 Pulse 73 02/15/21 11:35 Resp 16 02/15/21 11:35 BP 118/77 02/15/21 11:35 Pulse Ox 100 02/15/21 11:35 Pertinent Lab Results Pertinent Lab Results: Laboratory Tests 02/15/21 10:32 Sodium 140 Potassium 5.0 Chloride 108 Carbon Dioxide 24 Anion Gap 13 Airway Mallampati Class: II TM Dist: >3cm Neck ROM: Full Heart: gRRR Lungs: CTA BL Assessment and Plan Assessment Anesthesia Assessment: Anesthesia Plan Discussed and Chart Reviewed Final Anesthetic Review NPO: Yes ASA Class: III Final Preanesthetic Review: No Changes in Pt Med Stat and Consent Obtained/Reviewed Patient Risk: Intermediate Procedure Risk: Intermediate Anesthetic Plan Anesthetic Plan: GA Disposition: Standard PACU
[2021-02-15] MEDS: levoFLOXacin 500 MG TABLET PO (13:54)
--- NOTE | 2021-02-15 14:30 | MHC.SHP ---
Pre-Procedural Eval Section A The patient is an INPATIENT: No Changes since office visit: No Cold of Flu in the past 2 weeks, No New Medical Problems, No Changes in Medication and No Patient answered all questions The History & Physical has been completed within 30 days and I have reviewed it.: Yes Section B Chief Complaint: stricture of urinary tract Allergies: Allergies Allergy/AdvReac Type Severity Reaction Status Date / Time No Known Allergies Allergy Verified 01/11/21 12:38 [No Known Allergies*] Plan Diagnosis/Plan: Unchanged I have reviewed the history and physical and performed a pertinent physical examination on my patient. No changes have occurred unless specified.
--- NOTE | 2021-02-15 15:24 | PM.OP ---
Brief Operative Note Date of Service: 02/15/21 Pre-op diagnosis: Scrotal pain Post-op diagnosis: other Procedure: Erosion of artificial ureteric sphincter Surgeon: John Osman MD Anesthesia: GLMA Estimated blood loss (mL): 0 Pathology: none sent Condition: stable Disposition: same day
--- NOTE | 2021-02-15 15:25 | W.PM.OPN ---
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 Prior history of prostate cancer. Underwent penile prosthetic placement in past. Underwent artificial urinary sphincter procedure in the past. Presented to emergency room with pain on his scrotum in a question of infection. Treated with antibiotics. On exam recommendation was examination under anesthesia to deactivate his artificial sphincter as his urinary symptoms are quite marked with leakage. Procedure: After informed consent was verified the patient was brought to the operating room and placed in a supine position. anesthesia was administered per protocol. Patient was placed in modified dorsal lithotomy position and prepped and draped in a sterile fashion. Safety pause time-out was performed. Antibiotics being given. Examination under anesthesia was performed. The penile prosthetic was deflated. It had been partially inflated. There appeared to be an artificial sphincter pump. This was inflamed. A decision was made to proceed 1st with cystoscopy. At cystoscopy we could see the urinary sphincter was eroded into urethral lumen. There was no way to pass into the bladder. Rather than proceed with scrotal exploration and removal at this point in time decision was made to temporize the situation by placement of a suprapubic tube. There were incisions on his abdomen from prior prostatectomy, prior penile prosthetic implantation. We used a spinal needle to enter the bladder. We could feel scarring before we and the bladder approximately 2 fingerbreadths above the symphysis pubis. The bladder was then filled with 350 cc of normal saline. We tried to pass a wire down the 18 gauge superior pubic spinal needle. A 0.35 glidewire did pass. We attempted to place a 5 Guatemalan open-ended catheter into the bladder to exchange for a Sensor guidewire however open-ended did not enter the bladder. Using the 18 Guatemalan spinal needle we again entered the bladder. At this point we decided we would proceed with placement of a 14 Guatemalan Mallinckrodt suprapubic tube. This tube does come with a long needle and the ability to place a syringe on the needle. Using the area where the finer needle had been placed small incision was made in the skin. The Millin caught suprapubic tube was placed through the incision in down on to we could feel entrance to the bladder. This was confirmed with aspiration of urine. Once the position was confirmed were able to deploy the Mallinckrodt catheter. Good urine was again able to be aspirated from the Mallinckrodt catheter. This was sewn in place with a 2-0 nylon. The catheter was then attached to drainage. Plan will be to temporize the situation with bladder drainage. A removal of the sphincter will be scheduled. He was extubated in the operating room transferred in stable condition to the recovery area. Pathology: none Drains: SPT 14Fr mallenrodt catheter
[2021-02-15] MEDS: Acetaminophen 325 MG TABLET 650 MG PO (16:26)
[2021-02-15] MEDS: oxyCODONE HCl Immed Release 5 MG TABLET PO (16:27)
--- NOTE | 2021-02-15 17:14 | PC.NURSE ---
1700 MONITORS DCD IVF DCD ASST OOB ASST W CLOTHING CHANGE PLAN DC WC
== END 2021-02-15 13:00 | disposition home or self-care (01) ==
PROVIDERS: Nurse Practitioner; PCP Internal Medicine; Visit Provider Urology
PROC: 0TJB8ZZ Inspection of Bladder, Via Natural or Artificial Opening Endoscopic (ICD-10-PCS; CPT 52000; principal; 2021-02-15 11:00)
DX: T83.111A Breakdown (mechanical) of implanted urinary sphincter, initial encounter (principal); Y83.8 Other surgical procedures as the cause of abnormal reaction of the patient, or of later complication, without mention of misadventure at the time of the procedure; Y92.9 Unspecified place or not applicable; I10 Essential (primary) hypertension; Z85.46 Personal history of malignant neoplasm of prostate; Z92.3 Personal history of irradiation
CPT/HCPCS: 51040; 36415; 80051; C1758; C1769; C2627; J1100; J2250; J2405; J3010

== ENCOUNTER 2021-03-01 19:39 | Inpatient (IN) | payer MEDICARE, SELFPAY ==
[2021-03-01] VITALS (18 sets, daily range): BP systolic 119–158; BP diastolic 79–101; PULSE 74–85; RESP 16–20; TEMP 36.1–36.5; O2SAT 95–100; BMI 30.8
--- NOTE | ~2021-03-01 | US_ITS ---
EXAMINATION: US PELVIS LIMITED (BLADDER) CLINICAL INFORMATION: Ultrasound guidance was provided in the operating room for placement of a suprapubic tube. COMPARISON: None TECHNIQUE: 2 longitudinal images of the bladder were obtained US/US bladder FINDINGS/IMPRESSION: 2 sagittal images were obtained demonstrating the distended urinary bladder.
[2021-03-01] MEDS: Lactated Ringers 1,000 ML 20 ML IVCONT (13:52)
--- NOTE | 2021-03-01 15:00 | HO.ANESPROP2 ---
[facility] Active Problems Active Problems: All Active Problems (Updated 02/24/21 @ 12:38 by Aida Whelan MD) Anemia (Acute) Anastomotic stricture of urinary tract (Acute) Prostate cancer (Acute) Chronic UTI (urinary tract infection) (Acute) Hypertension (Acute) Loss of balance (Acute) Dizziness (Acute) Past Medical History Medical History Anastomotic stricture of urinary tract Anemia Dizziness GERD (gastroesophageal reflux disease) HTN (hypertension) Hypertension Loss of balance Prostate cancer Urgency incontinence Family History Family History Father No problems noted. Mother Cancer Maternal Grandfather Cancer Surgical History Surgical History History of kidney stones History of prostatectomy History of prostatectomy Hx laparoscopic cholecystectomy Social History Social History Alcohol intake: never Smoking Status: Former smoker Tobacco Type: Cigarette Have you been hit, kicked, punched, or otherwise hurt by someone within the past year? If so, by whom?: No Advance Directives: No Advance Directives Information Provided: No Advance Directives on File: No Meds Allergies Allergy/AdvReac Type Severity Reaction Status Date / Time No Known Allergies Allergy Verified 02/24/21 12:34 [No Known Allergies*] Home Medications Medication Instructions Recorded Confirmed Last Taken Type lisinopril 10 mg tablet 10 mg PO DAILY 08/06/20 02/24/21 03/01/21 History Exam Exam Date and Time: March 01, 2021 1500 Height,Weight and Vital Signs: Height 5 ft 7 in Weight 89.358 kg Last Vital Signs Temp 97.2 F 03/01/21 13:52 Pulse 74 03/01/21 13:52 Resp 16 03/01/21 13:52 BP 119/79 03/01/21 13:52 Pulse Ox 100 03/01/21 13:52 Airway Mallampati Class: I TM Dist: >3cm Neck ROM: Full Heart: RRR Lungs: CTA
--- NOTE | 2021-03-01 17:17 | MHC.SHP ---
Pre-Procedural Eval Section B Chief Complaint: post procedural complications Details of Present Illness: Has erosion of artificial urinary sphincter cuff into urethra. Suprapubic tube was previously placed Plan is for change of suprapubic tube, removal of eroding cuff from artificial sphincter with scrotal exploration Relevant Family History (Specify if Yes): No Relevant Social History: None Present Medications: see Short Stay Collaborative assessment Medical History: No relevant PMH History of Previous Operations: Relevant previous surgery/procedure and date(s) Allergies: Allergies Allergy/AdvReac Type Severity Reaction Status Date / Time No Known Allergies Allergy Verified 02/24/21 12:34 [No Known Allergies*] Review of Systems Sugical H&P ROS: Negative: Constitution, Cardiovascular, Respiratory, Neurological, Psychiatric, Hem-Onc, Allergic/Immunologic, Gastrointestinal, Genitourinary, Musculoskeletal, Integumentary, Endocrine and Eyes/Ears/Nose/Throat Exam Surgical H&P Exam: Normal: HEENT, Normal: Heart, Normal: Lungs, Normal: Extremities, Normal: Abdomen, Normal: Skin and Normal: Neurological Plan Diagnosis/Plan: Unchanged I have reviewed the history and physical and performed a pertinent physical examination on my patient. No changes have occurred unless specified.
[2021-03-01] MEDS: vancomycin HCL 1,000 MG in 0.9 % Sodium Chloride 250 ML 270 MG IV (17:19)
--- NOTE | 2021-03-01 20:52 | PM.OP ---
Brief Operative Note Date of Service: 03/01/21 Pre-op diagnosis: Urethral erosion from artificial urinary sphincter Post-op diagnosis: same Procedure: 1. Removal of eroded artificial urinary sphincter 2. Replacement of suprapubic tube Implants: Fourteen Greenlandic suprapubic tube Surgeon: John Osman MD Anesthesia: GLMA Estimated blood loss (mL): 0 Pathology: none sent Condition: stable Disposition: floor
--- NOTE | 2021-03-01 20:53 | P.OP_ITS ---
Operative Note Operative Note Date of Service: 03/01/21 Narrative: PreOperative Diagnosis: Eroded artificial urinary sphincter Post Operative Diagnosis: Eroded artificial urinary sphincter Procedure: 1. Removal of eroded artificial urinary sphincter 2. Cystoscopy 3 prepubic tube changed Surgeon: Dr John Osman Anesthesia: General Indications for procedure: This is a 75-year-old male. Previously had a IP P and an AUS placed many years ago. Had pain of AUS activation valve. Previously a suprapubic tube in place to allow healing as had drainage from neurogenic bladder. Procedure: After informed consent was verified the patient was brought to the operating room and placed in a supine position. Anesthesia was administered per protocol. Patient was placed in high lithotomy position. Scrotum were prepped and draped in sterile fashion. The perineum had incision from previous AUS placement. The AUS valve was in the dependent portion of his left scrotum. Incision was made over the overlying perineal incision. This approximately 2 in long. The scrotum had been fixed to the lower pole of the abdominal wall with sutures. The incision through the perineum was through inflamed tissue. A small pocket of purulent material was encountered. This was swabbed and sent for microbiology. The dissection was continued with primarily Bovie cutting as there was no clear planes. We gradually worked our way through the scarred material. The sphincter appeared to be buried in reactive material. The sphincter valve was mobilized from its position in the left scrotum and brought this down into the perineal incision. The tubing was used to mobilize to Zeng to. Sphincter was found and it was seen to be empty. The sphincter was unhooked and divided so that the pieces could be brought from the incision. At this point cystoscopy was performed. The eroded area was encountered. This was in communication with the perineal incision and water flowed into the incision. The scarring on the urethra was unable to be navigated by a wire. At this point decision was made to attempt to place a flexible cystoscope through the suprapubic incision and navigate to the anterior aspect of the urethral injury to see if a wire could be passed down through the penis. The 14 Hungarian male in caught that was in place had a wire passed through it into the bladder. The Mallinckrodt was removed. An attempt was made to place 16 Hungarian cystoscope which was unable to be passed into the bladder. The wire was then used to dilate up to an 18 Hungarian with urethral dilators. The cystoscope was unable to be passed. Decision was made to try to just leave a 16 Hungarian Wilson catheter however due to the scarring from the previous prostatectomy and further treatment this was unable to occur. It appears that access to the bladder had been lost. Ultrasound was called to the operating room. Ultrasound demonstrated the posterior location approximate depth of the bladder. The bladder was entered using a 3-1/2 inch 18 gauge spinal needle in filled with fluid. Fourteen Hungarian Mallinckrodt suprapubic tube was advanced into the bladder and clear drainage was obtained with aspiration. This drain was placed into the bladder and secured using a nylon suture. The perineal incision was closed in multiple layers. A Robin drain was left to allow passive drainage. The skin was closed with interrupted chromic sutures. Dressings were placed. He tolerated procedure and was transferred in stable condition to the recovery area for admission. Drains: Robin drain,
[2021-03-01] MEDS: fentaNYL citrate/PF 100 MCG/2 ML VIAL 25 MCG IVPUSH ×4 (21:11→21:30)
[2021-03-01] MEDS: Acetaminophen 325 MG TABLET 650 MG PO (21:33)
[2021-03-01] MEDS: oxyCODONE HCl Immed Release 5 MG TABLET PO (21:34)
[2021-03-01] MEDS: HYDROmorphone HCl 0.5 MG/0.5 ML SYRINGE IVPUSH (21:43)
[2021-03-01 22:49] LABS: Basophils Percent Auto 0.1 % (0-2); Eosinophils Percent Auto 0.1 % (0-4); Hematocrit 41.3 % (42-52); Hemoglobin 12.6 g/dl (14.0-18.0); Imm Gran Abs Auto 0.06 X10*3/uL (0.00-0.03); Imm Gran Pct Auto 0.4 % (0.0-0.4); Lymphocytes Absolute Auto 1.1 X10*3/uL (1.2-4.9); Lymphocytes Percent Auto 7.9 % (20-40); MANUAL DIFF FLAG SCAN; Mean Corpuscular HGB Conc 30.5 g/dl (31.0-36.0); Mean Corpuscular Hemoglobin 28.3 pg (27.0-33.0); Mean Corpuscular Volume 92.6 fL (80-98); Mean Platelet Volume 9.9 fL (9.4-12.4); Monocytes Absolute Auto 0.2 X10*3/uL (0.1-1.2); Monocytes Percent Auto 1.4 % (2-11); Neutrophils Absolute Auto 12.3 X10*3/uL (2.0-8.3); Neutrophils Percent Auto 90.1 % (45-73); Platelet Count 255 X10*3/uL (160-400); Red Blood Count 4.46 X10*6/uL (4.60-5.80); Red Cell Distribution Width 14.2 % (11.0-16.0); SCAN SMEAR FLAG 1; White Blood Count 13.6 X10*3/uL (4.8-10.8)
[2021-03-01 23:08] LABS: Anion Gap 15 (12-20); Carbon Dioxide 20 mmol/L (22-29); Chloride 108 mmol/L (96-108); Potassium 5.2 mmol/L (3.3-5.1); SLIDE REVIEW VERIFIED; Sodium 138 mmol/L (135-145)
[2021-03-02] MEDS: 0.9 % Sodium Chloride Flush 3 ML SYRINGE IVFLUSH (01:31)
[2021-03-02] MEDS: traMADoL HCL 50 MG TABLET PO (02:36)
[2021-03-02 03:54] VITALS: BP 147/90; PULSE 78; RESP 20; TEMP 36.4; O2SAT 98
[2021-03-02 07:24] VITALS: BP 135/78; PULSE 80; RESP 18; TEMP 36.2; O2SAT 98
--- NOTE | 2021-03-02 08:08 | HO.POSTANES ---
Post Anesthesia Evaluation Post Anesthesia Evaluation Vital Signs: Vital Signs Temp Pulse Resp BP Pulse Ox 03/02/21 07:24 97.1 F 80 18 135/78 98 03/02/21 03:54 97.6 F 78 20 147/90 H 98 03/01/21 23:35 97.7 F 85 20 133/79 98 03/01/21 22:15 97.3 F 81 20 137/98 H 97 03/01/21 22:00 96.9 F 81 16 142/92 H 97 03/01/21 21:50 83 18 137/86 97 03/01/21 21:45 80 18 158/95 H 97 03/01/21 21:43 18 03/01/21 21:35 83 18 158/96 H 97 03/01/21 21:30 83 16 154/101 H 95 03/01/21 21:25 84 16 154/91 H 97 03/01/21 21:24 16 03/01/21 21:20 81 16 134/96 H 97 03/01/21 21:17 16 03/01/21 21:15 82 16 146/97 H 97 03/01/21 21:11 16 03/01/21 21:10 81 16 151/93 H 97 03/01/21 21:05 81 16 148/84 H 95 03/01/21 21:00 96.9 F 85 16 149/88 H 96 Anesthesia: General Mental Status: Awake Pain Control: Satisfactory Nausea/Vomiting: None Hydration: Adequate Anesthesia-Related Issues: No Anes. Related Issues
[2021-03-02] MEDS: levoFLOXacin 500 MG TABLET PO (10:02)
[2021-03-02 12:00] VITALS: BP 114/76; PULSE 83; RESP 18; TEMP 36.4; O2SAT 99
--- NOTE | 2021-03-02 12:21 | P.PNUR_ITS ---
Subjective Subjective Date of Service: 03/02/21 Interval history: Postoperative day 1 Managing pain well Good drainage into suprapubic tube Does have some sensitivity in that area which is consistent with a procedure yesterday Will recommend change of dressing on perineum and to follow-up in 2 days for removal of drain Physical Exam Vital Signs: Vital Signs: Last Vital Signs Temp 97.6 F 03/02/21 12:00 Pulse 83 03/02/21 12:00 Resp 18 03/02/21 12:00 BP 114/76 03/02/21 12:00 Pulse Ox 99 03/02/21 12:00 Body Mass Index 30.8 Const: General: cooperative, healthy appearing, comfortable and no acute distress Nutritional Appearance: average body habitus Orientation/consciousness: oriented to person, oriented to place and oriented to time Eyes: General: appearance normal, both eyes and all related structures Chest: Chest palpation & inspection: normal inspection of the chest Resp: Effort & Inspection: normal respiratory effort Cardio: Rate: regular rate GI: Inspection: Yes normal to inspection Skin: Hair: normal Neuro: General: oriented to person, oriented to place and oriented to time Extrem: General: Yes normal to inspection Urology Results Labs CBC & Chem 7: 03/01/21 22:40 03/01/21 22:40 Labs: Laboratory Results - last 24 hr 03/01/21 03/01/21 22:40 22:40 WBC 13.6 H RBC 4.46 L Hgb 12.6 L Hct 41.3 L MCV 92.6 MCH 28.3 MCHC 30.5 L RDW 14.2 Plt Count 255 MPV 9.9 Immature Gran % (Auto) 0.4 Neut % (Auto) 90.1 H Lymph % (Auto) 7.9 L [place] % (Auto) 1.4 L Eos % (Auto) 0.1 Baso % (Auto) 0.1 Lymph # (Auto) 1.1 L [place] # (Auto) 0.2 Eos # (Auto) 0.0 Baso # (Auto) 0.0 Abs Immat Gran (auto) 0.06 H Absolute Neuts (auto) 12.3 H Absolute Nucleated RBC 0.000 Nucleated RBC % (auto) 0.0 Smear Tech's Comments VERIFIED Sodium 138 Potassium 5.2 H Chloride 108 Carbon Dioxide 20 L Anion Gap 15 Progress Note: A&P Assessment and plan (1) Cuff erosion of artificial urinary sphincter: Problem details: Removed February 2021 Status: Acute Assessment and Plan: Follow-up in 2 days for drain removal May discharge today Fall Risk Details Current Medications: Current Medications Generic Name Dose Route Start Last Admin Trade Name Freq PRN Reason Stop Dose Admin Acetaminophen 650 mg 03/01/21 19:37 Acetaminophen 325 Mg Tablet PO Q4H PRN Pain, Mild (Pain Scale 1-3) Hydromorphone HCl 0.5 mg 03/01/21 21:41 03/01/21 21:43 Hydromorphone Hcl 0.5 Mg/0.5 Ml Syringe IVPUSH 0.5 mg Q5M PRN Administration Pain, Severe (Pain Scale 7-10) Lactated Ringer's 1,000 mls @ 20 mls/hr 03/01/21 15:15 03/01/21 13:52 Lr IVCONT 20 mls/hr .Q24H JAM Administration Levofloxacin 500 mg 03/02/21 09:00 03/02/21 10:02 Levofloxacin 500 Mg Tablet PO 500 mg Q24H JAM Administration Ondansetron HCl 4 mg 03/01/21 15:02 Ondansetron Hcl 4 Mg/2 Ml Vial IVPUSH ONCE PRN Nausea and Vomiting Sodium Chloride 3 ml 03/02/21 00:00 03/02/21 07:36 0.9 % Sodium Chloride Flush 3 Ml Syringe IVFLUSH Not Given QSHIFT JAM Tramadol HCl 50 mg 03/01/21 20:51 03/02/21 02:36 Tramadol Hcl 50 Mg Tablet PO 50 mg Q6H PRN Administration Pain, Moderate (Pain Scale 4-6 Time Spent With Patient Time: Total time spent is greater than 50% in coordination of care (as documented) at patient's floor/unit and/or counseling patient: Time with patient: 15 - 24 minutes
--- NOTE | 2021-03-02 12:28 | PM.DS ---
DS: Providers Provider Date of Service: 03/02/21 Date of admission: 03/01/21 19:39 Primary care physician: Aida Whelan MD DS: Diagnosis Discharge Diagnosis (1) Cuff erosion of artificial urinary sphincter: Status: Acute Problem details: Removed February 2021 DS: Medications Discharge Medications Home Medications: Home Medications Medication Instructions Recorded Confirmed lisinopril 10 mg tablet 10 mg PO DAILY 08/06/20 02/24/21 Previous Rx's Medication Instructions Recorded omeprazole 20 mg capsule,delayed 20 mg PO DAILY 90 Days #90 cap 09/22/20 release sulfamethoxazole-trimethoprim 1 tab PO BID 7 Days #14 tab 03/02/21 [Bactrim DS] DS: Summary Time Spent with Patient Time attestation: Total time spent providing and/or coordinating discharge services: Discharge coordination time: Less than 30 minutes Physical Exam Vital Signs: Vital Signs: Last Vital Signs Temp 97.6 F 03/02/21 12:00 Pulse 83 03/02/21 12:00 Resp 18 03/02/21 12:00 BP 114/76 03/02/21 12:00 Pulse Ox 99 03/02/21 12:00 Body Mass Index 30.8 Const: General: cooperative, healthy appearing, comfortable and no acute distress Nutritional Appearance: average body habitus Orientation/consciousness: oriented to person, oriented to place and oriented to time Eyes: General: appearance normal, both eyes and all related structures Chest: Chest palpation & inspection: normal inspection of the chest Resp: Effort & Inspection: normal respiratory effort Cardio: Rate: regular rate GI: Inspection: Yes normal to inspection Skin: Hair: normal Neuro: General: oriented to person, oriented to place and oriented to time Extrem: General: Yes normal to inspection DS: Data Data Completed and Pending Labs on day of discharge: Laboratory Results - last 24 hr 03/01/21 03/01/21 22:40 22:40 WBC 13.6 H RBC 4.46 L Hgb 12.6 L Hct 41.3 L MCV 92.6 MCH 28.3 MCHC 30.5 L RDW 14.2 Plt Count 255 MPV 9.9 Immature Gran % (Auto) 0.4 Neut % (Auto) 90.1 H Lymph % (Auto) 7.9 L [place] % (Auto) 1.4 L Eos % (Auto) 0.1 Baso % (Auto) 0.1 Lymph # (Auto) 1.1 L [place] # (Auto) 0.2 Eos # (Auto) 0.0 Baso # (Auto) 0.0 Abs Immat Gran (auto) 0.06 H Absolute Neuts (auto) 12.3 H Absolute Nucleated RBC 0.000 Nucleated RBC % (auto) 0.0 Smear Tech's Comments VERIFIED Sodium 138 Potassium 5.2 H Chloride 108 Carbon Dioxide 20 L Anion Gap 15 Preliminary micro results at discharge 03/01/21 17:45 Routine Culture - Preliminary Scrotum Gram negative tiffanie Discharge Plan Discharge Patient Disposition: Home, Self-Care Discharge Diagnosis: Removal of eroding artificial urinary sphincter Referrals: John Osman MD [Physician] - 3-5 Days (Drain removal ) Aida Velazquez MD [Primary Care Provider] - 1 Week Discharge Medications: New sulfamethoxazole-trimethoprim [Bactrim DS] 800-160 mg tablet 1 tab PO BID 7 Days Qty: 14 RF: 0 Continued omeprazole 20 mg capsule,delayed release(DR/EC) 20 mg PO DAILY 90 Days Qty: 90 RF: 3 lisinopril 10 mg tablet 10 mg PO DAILY RF: 0 Discharge Orders: Discharge Order (Routine); Ordered 03/02/21 Ordered By: John Osman Diet: advance to usual diet Activity on Discharge: As tolerated Stand Alone Forms: Patient Portal Discharge page Care Plan Goals: Removal drain Health Concerns: Addressed Plan of Treatment: Continue suprapubic tube Assessment: Stable
--- NOTE | 2021-03-02 12:50 | MHC.CM.PN ---
IMM 03/02/21, EMR REVIEWED PT ADMITTED FOR POST PROCEDURAL COMPLICATION, CM MET W/PT VIA PROGRAM ATTENDANT, PT REPORTS HE LIVES ALONE, IS INDEPENDENT WITH ALL CARE, USES A CANE AT TIMES AND NO OTHER DME, PT HAS NO HOME SERVICES, PT DOES NOT ANTICIPATE ANY NEEDS AFTER D/C, PT VERIFIES PHARMACY, PCP, AND CONTACT INFO OF DAUGHTER AND SON. HCP: RAMILA HARDING [phone], COPY REQUESTED PCP: DOMINIC DOVER
--- NOTE | 2021-03-02 12:55 | MHC.CM.PN ---
PT DISCHARGING TODAY HOME SELF-CARE W/APPT IN DR WINSTON'S OFFICE ON 03/04/21 FOR DRAIN REMOVAL, FRIEND FOR TRANSPORT
== END 2021-03-02 13:02 | disposition home or self-care (01) | DRG 672 ==
LOC: HO.S3 22:18
PROVIDERS: Admitting Provider Urology; PCP Internal Medicine; Visit Provider Urology
PROC: 0TPD0LZ Removal of Artificial Sphincter from Urethra, Open Approach (ICD-10-PCS; CPT 55110; principal; 2021-03-01 15:00)
DX: T83.111A Breakdown (mechanical) of implanted urinary sphincter, initial encounter (principal); Z79.899 Other long term (current) drug therapy
CPT/HCPCS: 53446; 51102; 36415; 76857; 80051; 85025; 87071; 87077; 87186; 87205; C2627; J1100; J1170; J2370; J2405; J3010; J3370

== ENCOUNTER → 2021-03-04 09:12 | Outpatient (BNVA) | payer MEDICARE, SELFPAY | PROVIDERS: PCP Internal Medicine; Visit Provider Urology | DX: T83.010A Breakdown (mechanical) of cystostomy catheter, initial encounter (principal); T83.111A Breakdown (mechanical) of implanted urinary sphincter, initial encounter | CPT/HCPCS: 99212 ==

== ENCOUNTER 2021-03-04 09:59 | Day surgery (SDC) | payer MEDICARE, SELFPAY ==
[2021-03-04] VITALS (10 sets, daily range): BP systolic 105–140; BP diastolic 68–97; PULSE 76–86; RESP 14–20; TEMP 35.9–37.1; O2SAT 97–100; BMI 30.8
--- NOTE | ~2021-03-04 | US_ITS ---
EXAMINATION: US PELVIS LIMITED (BLADDER) CLINICAL INFORMATION: Suprapubic tube repositioning. COMPARISON: Ultrasound bladder 03/01/2021 and ultrasound renal 01/19/[address] of the abdomen and pelvis from earlier the same day. TECHNIQUE/findings: Ultrasound guidance was provided in the operating room for repositioning of suprapubic tube. One image was obtained. US/US bladder IMPRESSION: Ultrasound guidance for suprapubic tube repositioning..
--- NOTE | ~2021-03-04 | CT_ITS ---
EXAMINATION: CT ABDOMEN AND PELVIS WITHOUT CONTRAST CLINICAL INFORMATION: Issue with catheters. Previous bladder ultrasound 03/01/2021 indicates ultrasound guidance for pubic tube placement. COMPARISON: Previous renal ultrasound January 2021 and bladder ultrasound February 2021 and MR of the abdomen December 2008 TECHNIQUE: Multidetector volumetric imaging was performed from the superior aspect of the liver through the pubic symphysis. Sagittal and coronal reformatted images were obtained on the technologist's workstation. This CT examination was performed using dose optimization techniques as appropriate, variously including the following: *Automated exposure control *Adjustment of mA and/or kV according to patient size (this includes techniques or standardized protocols for targeted exams where dose is matched to indication/reason for exam; i.e. extremities or head) *Use of iterative reconstruction technique DLP: 658 mGy-cm FINDINGS: LUNG BASES: The visualized lung bases are unremarkable. LIVER, GALLBLADDER, AND BILIARY TREE: The liver is normal in size, shape, and attenuation. No focal hepatic lesion or biliary ductal dilatation is present. The gallbladder is unremarkable with no evidence of radiopaque gallstones, gallbladder wall thickening, or obvious pericholecystic inflammatory changes. PANCREAS: Unremarkable. SPLEEN: Unremarkable. ADRENAL GLANDS: Unremarkable. KIDNEYS AND URETERS: The kidneys are lobulated in shape. There are multiple bilateral renal cysts. Largest cyst measures 4 cm in the upper pole of the right kidney. There are small bilateral renal stones. No hydronephrosis, ureteral dilatation or ureteral stone is seen. BLADDER: There is a reservoir in the right pelvis. This is oval in shape and contains a small amount of air. There is a penile prosthesis. The bladder is not optimally distended. There is a suprapubic tube with tip projecting over the wall of the dome of the bladder. There is mild focal bladder wall thickening seen in this region. No perivesicular fluid collection is seen. GASTROINTESTINAL TRACT: There is diverticulosis of the colon. Small and large bowel is otherwise unremarkable. The appendix is unremarkable. ABDOMINAL WALL: There is some skin thickening, stranding of the fat and small amount of air in the soft tissues of the pelvis midline and to the left of midline likely related to suprapubic tube placement. LYMPH NODES: Normal. VASCULAR: Unremarkable. PELVIC VISCERA: The prostate gland has been removed. OSSEOUS STRUCTURES: There are degenerative changes of the spine. CT/CT abdomen pelvis wo con IMPRESSION: Suprapubic tube tip projects in the wall of the dome of the bladder and may not be completely inside the bladder. This could be confirmed fluoroscopically if clinically indicated. [place] in the right pelvis and penile prosthesis. Post prostatectomy. Bilateral renal cysts and small bilateral renal stones. Diverticulosis.
--- NOTE | 2021-03-04 10:19 | PC.NURSE ---
Suprapubic cath dsg intact. drainage bag noted with small amt of blood tinged urine and brief noted with urine. Pt denies pain at this time. No abd distention noted
--- NOTE | 2021-03-04 10:36 | ED_ITS ---
HPI - Male Genitourinary General Chief complaint: Urogenital-Male <Vanessa Huertas PA-C - Last Filed: 03/04/21 14:11> Stated complaint: catheter issue? <Vanessa Huertas PA-C - Last Filed: 03/04/21 14:11> Time Seen by Provider: 03/04/21 10:33 <Vanessa Huertas PA-C - Last Filed: 03/04/21 14:11> Source: patient <Vanessa Huertas PA-C - Last Filed: 03/04/21 14:11> Mode of arrival: ambulatory <MEE Erickson Last Filed: 03/04/21 14:11> Limitations: language barrier (Finance Professor used) <MEE Erickson Last Filed: 03/04/21 14:11> History of Present Illness HPI Narrative: Patient is a 75-year-old male with a history of prostate cancer status post radical prostatectomy who was just seen at Dr. Osman's office this morning. Patient also has history of anemia, dizziness, hypertension, GERD and loss of balance. Per Dr. rizzo note, patient was sent to the ED for a pelvic CT noncontrast. Patient denies pain, bleeding or fevers. <Vanessa Huertas PA-C - Last Filed: 03/04/21 14:11> Related Data Home medications: Home Medications Medication Instructions Recorded Confirmed lisinopril 10 mg tablet 10 mg PO DAILY 08/06/20 03/04/21 Previous Rx's Medication Instructions Recorded omeprazole 20 mg capsule,delayed 20 mg PO DAILY 90 Days #90 cap 09/22/20 release sulfamethoxazole-trimethoprim 1 tab PO BID 7 Days #14 tab 03/02/21 [Bactrim DS] tramadol 50 mg tablet 50 mg PO Q6H PRN #14 tab 03/02/21 <MEE Erickson Last Filed: 03/04/21 14:11> Allergies/Adverse reactions: Allergies Allergy/AdvReac Type Severity Reaction Status Date / Time No Known Allergies Allergy Verified 03/04/21 09:20 [No Known Allergies*] <Vanessa Huertas PA-C - Last Filed: 03/04/21 14:11> Review of Systems Review of Systems: Yes all other systems are reviewed and are negative <Vanessa Huertas PA-C - Last Filed: 03/04/21 14:11> [facility] Past Medical History Medical History: Medical History Anastomotic stricture of urinary tract Anemia Dizziness GERD (gastroesophageal reflux disease) HTN (hypertension) Hypertension Loss of balance Prostate cancer Urgency incontinence <Vanessa Huertas PA-C - Last Filed: 03/04/21 14:11> Surgical History: Surgical History History of kidney stones History of prostatectomy History of prostatectomy Hx laparoscopic cholecystectomy <Vanessa Huertas PA-C - Last Filed: 03/04/21 14:11> Family History Family History: Family History Father No problems noted. Mother Cancer Maternal Grandfather Cancer <Vanessa Huertas PA-C - Last Filed: 03/04/21 14:11> Social History Social History: Social History Household Members: Family Housing: House Alcohol intake: never Smoking Status: Never smoker Tobacco Type: Cigarette service: No Current occupational status: disabled <Vanessa Huertas PA-C - Last Filed: 03/04/21 14:11> Physical Exam Vital Signs: Vital Signs: Last Vital Signs Temp 98.2 F 03/04/21 18:50 Pulse 80 03/04/21 18:50 Resp 16 03/04/21 18:50 BP 140/87 H 03/04/21 18:50 Pulse Ox 98 03/04/21 18:50 Body Mass Index 30.8 <Vanessa Huertas PA-C - Last Filed: 03/04/21 14:11> Vital Signs: Last Vital Signs Temp 98.2 F 03/04/21 18:50 Pulse 80 03/04/21 18:50 Resp 16 03/04/21 18:50 BP 140/87 H 03/04/21 18:50 Pulse Ox 98 03/04/21 18:50 Body Mass Index 30.8 <Dc Tidwell MD - Last Filed: 03/23/21 13:32> Const: General: cooperative, healthy appearing, comfortable and no acute distress <Vanessa Huertas PA-C - Last Filed: 03/04/21 14:11> Nutritional Appearance: average body habitus <Vanessa Huertas PA-C - Last Filed: 03/04/21 14:11> Orientation/consciousness: patient oriented x3 <Vanessa Huertas PA-C - Last Filed: 03/04/21 14:11> Eyes: General: appearance normal, both eyes and all related structures <Vanessa Huertas PA-C - Last Filed: 03/04/21 14:11> Resp: Effort & Inspection: normal respiratory effort and able to speak in complete sentences <Vanessa Huertas PA-C - Last Filed: 03/04/21 14:11> GI: Other: Suprapubic catheter in placed with bandages, CDI <Vanessa Huertas PA-C - Last Filed: 03/04/21 14:11> : Other: [place] drain in place left-sided scrotum, suprapubic tube in place with yellow urine <Vanessa Huertas PA-C - Last Filed: 03/04/21 14:11> Penis: normal penis <Vanessa Huertas PA-C - Last Filed: 03/04/21 14:11> Neuro: General: patient oriented x3 <Vanessa Huertas PA-C - Last Filed: 03/04/21 14:11> Course Course Course Narrative: Yue is a 75-year-old male with a history of prostate cancer status post radical prostatectomy who was just seen at Dr. Osman's office this morning. [place] text with Dr. Osman for guidance. Dr. Osman is concerned the catheter is not in place, will get Pelvic CT noncontrast. <Vanessa Huertas PA-C - Last Filed: 03/04/21 14:11> I have reviewed the chart <Dc Tidwell MD - Last Filed: 03/23/21 13:32> Reevaluation(s) Reevaluation #1: CT results are in, suprapubic tube tip projects into the wall of the dome of the bladder but may not be completely inside the bladder, advised Dr. Osman. He will take patient to short-stay surgery to adjust the catheter and patient will be discharged from there. <Vanessa Huertas PA-C - Last Filed: 03/04/21 14:11> Time: 13:11 <Vanessa Huertas PA-C - Last Filed: 03/04/21 14:11> MDM - Male Genitourinary Medical Records Attestation: I reviewed the patient's medical records. <Vanessa Huertas PA-C - Last Filed: 03/04/21 14:11> Imaging Data CT scan - pelvis: Attestation: I personally reviewed and interpreted this imaging study as follows: <Vanessa Huertas PA-C - Last Filed: 03/04/21 14:11> Radiologist's impression: [address] [id number] Scan ReportSigned Patient: Star Dhillon#: [id number]: 1945cct:Ericka [id number]/Sex: 75 / MADM Date: 03/04/21Loc: HO.EDAttending Dr: Ordering Physician: Vanessa Huertas PA-C Date of Service: 03/04/21 Procedure(s): CT abdomen pelvis wo con Accession Number(s): [id number] cc: Vanessa Huertas PA-C~ EXAMINATION: CT ABDOMEN AND PELVIS WITHOUT CONTRAST CLINICAL INFORMATION: Issue with catheters. Previous bladder ultrasound 03/01/2021 indicates ultrasound guidance for pubic tube placement. COMPARISON: Previous renal ultrasound January 2021 and bladder ultrasound February 2021 and MR of the abdomen December 2008 TECHNIQUE: Multidetector volumetric imaging was performed from the superior aspect of the liver through the pubic symphysis. Sagittal and coronal reformatted images were obtained on the technologist's workstation. This CT examination was performed using dose optimization techniques as appropriate, variously including the following: *Automated exposure control *Adjustment of mA and/or kV according to patient size (this includes techniques or standardized protocols for targeted exams where dose is matched to indication/reason for exam; i.e. extremities or head) *Use of iterative reconstruction technique DLP: 658 mGy-cm FINDINGS: LUNG BASES: The visualized lung bases are unremarkable. LIVER, GALLBLADDER, AND BILIARY TREE: The liver is normal in size, shape, and attenuation. No focal hepatic lesion or biliary ductal dilatation is present. The gallbladder is unremarkable with no evidence of radiopaque gallstones, gallbladder wall thickening, or obvious pericholecystic inflammatory changes. PANCREAS: Unremarkable. SPLEEN: Unremarkable. ADRENAL GLANDS: Unremarkable. KIDNEYS AND URETERS: The kidneys are lobulated in shape. There are multiple bilateral renal cysts. Largest cyst measures 4 cm in the upper pole of the right kidney. There are small bilateral renal stones. No hydronephrosis, ureteral dilatation or ureteral stone is seen. BLADDER: There is a reservoir in the right pelvis. This is oval in shape and contains a small amount of air. There is a penile prosthesis. The bladder is not optimally distended. There is a suprapubic tube with tip projecting over the wall of the dome of the bladder. There is mild focal bladder wall thickening seen in this region. No perivesicular fluid collection is seen. GASTROINTESTINAL TRACT: There is diverticulosis of the colon. Small and large bowel is otherwise unremarkable. The appendix is unremarkable. ABDOMINAL WALL: There is some skin thickening, stranding of the fat and small amount of air in the soft tissues of the pelvis midline and to the left of midline likely related to suprapubic tube placement. LYMPH NODES: Normal. VASCULAR: Unremarkable. PELVIC VISCERA: The prostate gland has been removed. OSSEOUS STRUCTURES: There are degenerative changes of the spine. CT/CT abdomen pelvis wo con IMPRESSION: Suprapubic tube tip projects in the wall of the dome of the bladder and may not be completely inside the bladder. This could be confirmed fluoroscopically if clinically indicated. [place] in the right pelvis and penile prosthesis. Post prostatectomy. Bilateral renal cysts and small bilateral renal stones. Diverticulosis. Dictated By:KYREE ISAACS MDSigned By:<Electronically signed by KYREE ISAACS MD in OV>03/04/21 1121 DD/ 1038TD/TT: General Expeditor: HERBERT <Vanessa Huertas PA-C - Last Filed: 03/04/21 14:11> Discharge Plan Discharge Clinical Impression: Complication, blocked suprapubic catheter <Vanessa Huertas PA-C - Last Filed: 03/04/21 14:11> Patient Disposition: Home, Self-Care <Vanessa Huertas PA-C - Last Filed: 03/04/21 14:11>
--- NOTE | 2021-03-04 12:51 | PC.NURSE ---
Pt voided approx 275ml in urinal and noted with urinal incontinence, Marga PA notified and awaiting call back from Urology
--- NOTE | 2021-03-04 14:39 | PC.NURSE ---
Pt voided additional 475 in urinal. Awaiting urology to se pt to adjust suprapubic catheter.
--- NOTE | 2021-03-04 16:00 | P.CONAN_ITS ---
HPI - Anesthesia Eval Consult details Narrative: 75 yo male patient here for replacement of suprapubic catheter. Sacha galarza was here 3 days ago for same [facility] Active Problems Active Problems: All Active Problems (Updated 03/04/21 @ 14:12 by Vanessa Huertas PA-C) Complication, blocked suprapubic catheter (Acute) Suprapubic catheter dysfunction (Acute) Cuff erosion of artificial urinary sphincter (Acute) Anemia (Acute) Anastomotic stricture of urinary tract (Acute) Prostate cancer (Acute) Chronic UTI (urinary tract infection) (Acute) Hypertension (Acute) Loss of balance (Acute) Dizziness (Acute) Past Medical History Medical History Anastomotic stricture of urinary tract Anemia Dizziness GERD (gastroesophageal reflux disease) HTN (hypertension) Hypertension Loss of balance Prostate cancer Urgency incontinence Family History Family History Father No problems noted. Mother Cancer Maternal Grandfather Cancer Family history of problems with anesthesia: No Surgical History Surgical History History of kidney stones History of prostatectomy History of prostatectomy Hx laparoscopic cholecystectomy History of Problems with Anesthesia: No Social History Social History Household Members: Family Housing: House Alcohol intake: never Smoking Status: Never smoker Tobacco Type: Cigarette Use of substances other than those prescribed or required for medical reasons: No Advance Directives: No Advance Directives Information Provided: No service: No Current occupational status: disabled Meds Allergies Allergy/AdvReac Type Severity Reaction Status Date / Time No Known Allergies Allergy Verified 03/04/21 09:20 [No Known Allergies*] Home Medications Medication Instructions Recorded Confirmed Last Taken Type lisinopril 10 mg tablet 10 mg PO DAILY 08/06/20 03/04/21 03/01/21 History Exam Exam Date and Time: March 04, 2021 1600 Height,Weight and Vital Signs: Height 5 ft 7 in Weight 89.358 kg Last Vital Signs Temp 98.7 F 03/04/21 15:53 Pulse 76 03/04/21 15:53 Resp 20 03/04/21 15:53 BP 128/89 03/04/21 15:53 Pulse Ox 99 03/04/21 15:53 Airway Mallampati Class: II TM Dist: >3cm Neck ROM: Full Heart: RRR Lungs: CTAB Assessment and Plan Assessment Anesthesia Assessment: Anesthesia Plan Discussed and Chart Reviewed Final Anesthetic Review NPO: Yes ASA Class: III Final Preanesthetic Review: No Changes in Pt Med Stat, Meds/Allgs Chart Reviewed, Consent Obtained/Reviewed and Anes Risks/Benef Reviewed Patient Risk: Intermediate Procedure Risk: Intermediate Assessment/Block/Sedation in SS: Assess/Block/Sedation-SS Anesthetic Plan Anesthetic Plan: GA Disposition: Standard PACU
--- NOTE | 2021-03-04 16:29 | MHC.SHP ---
Pre-Procedural Eval Section A The patient is an INPATIENT: No Changes since office visit: No Cold of Flu in the past 2 weeks, No New Medical Problems, No Changes in Medication and No Patient answered all questions The History & Physical has been completed within 30 days and I have reviewed it.: Yes Section B Chief Complaint: catheter issue? Allergies: Allergies Allergy/AdvReac Type Severity Reaction Status Date / Time No Known Allergies Allergy Verified 03/04/21 09:20 [No Known Allergies*] Plan Diagnosis/Plan: Unchanged (SPT repositioning) I have reviewed the history and physical and performed a pertinent physical examination on my patient. No changes have occurred unless specified.
[2021-03-04] MEDS: 0.9 % Sodium Chloride 1,000 ML 100 ML IVCONT (16:34)
[2021-03-04] MEDS: levoFLOXacin/D5W 500 MG/100 ML PIGGYBACK 100 MG IV (16:48)
--- NOTE | 2021-03-04 17:58 | PM.OP ---
Brief Operative Note Date of Service: 03/04/21 Pre-op diagnosis: Suprapubic tube malposition Post-op diagnosis: same Procedure: 1. Suprapubic tube exchange 2. Cystoscopy 3. Wilson catheter placement Implants: Sixteen [place] tip catheter Surgeon: John Osman MD Anesthesia: GLMA Estimated blood loss (mL): 0 Pathology: none sent Condition: stable Disposition: same day
--- NOTE | 2021-03-04 18:01 | W.PM.OPN ---
Operative Note Operative Note Date of Service: 03/04/21 Narrative: PreOperative Diagnosis: Suprapubic tube no longer bladder Post Operative Diagnosis: Same Procedure: - suprapubic tube change, cystoscopy, Wilson catheter placement Surgeon: Dr John Osman Anesthesia: General Indications for procedure: This is a 75-year-old male. Underwent removal of eroding artificial urinary sphincter on Monday. Had been seen in the office this morning. Initially had had a working suprapubic tube with good drainage. Apparently this stops draining effectively on Monday and by today drainage was occurring mostly through the [place] drain on scrotum. Recommendation is for reposition of suprapubic tube back into the bladder. CT scan had been taken which confirmed these findings. Procedure: After informed consent was verified the patient was brought to the operating room and placed in a supine position. Anesthesia was administered per protocol. Patient was placed in modified dorsal lithotomy position and prepped and draped in sterile fashion. Safety pause time-out was performed. Antibiotics have been given. A Glidewire 0.38 was placed through the existing melon caught suprapubic tube. Aspiration of been attempted however no fluid was able to come back from the tube. The wire was able to be advanced. An open-ended 5 [place] ureteric catheter was then placed over the wire through the [place] tip catheter. The bladder was irrigated. The [place] tip catheter was removed. This point a decision was made about full exchange of the suprapubic tube. A decision was made to attempt cystoscopy. Cystoscopy was performed with a 22 [place] cystoscope. At the area where the artificial sphincter had previously eroded in blocked the urethra we were able to see an opening that appeared to go past the damaged area. The Sensor guidewire was taken from the suprapubic tube area and placed through the cystoscope and advanced forward through the proximal urethra. A rigid ureteroscope was then taken and placed over the wire. We were able to place this through the urethra and through the area of prior damage up into the bladder. We could confirm that the 5 [place] open-ended ureteric catheter was coiled within the bladder and the bladder was primarily emptied because the sphincter was no longer sufficient to maintain bladder volume. The uterus scope was removed. A 2nd 5 [place] open-ended catheter was placed over the wire into the bladder. This was then placed through [place] tip catheter and a 16 [place] tip catheter was advanced and 10 cc placed in the balloon inside the bladder. The wire and the ureteric catheter removed. The 16 [place] tip was able to be easily irrigated. Ultrasound had been called to the room to help with some anatomy. Using the ultrasound probe were able to see the balloon of the catheter freely moving within the lumen that matched the CT findings for the bladder. The suprapubic ureteric catheter was removed. The [place] tip catheter was hooked up to a regular overnight bag. Dressings were changed He tolerated procedure well was extubated in the operating room and transferred in stable condition to recovery area. Pathology: [] Drains: Wilson 16Fr galena
[2021-03-04] MEDS: Acetaminophen 325 MG TABLET 650 MG PO (18:26)
[2021-03-04] MEDS: oxyCODONE HCl Immed Release 5 MG TABLET PO (18:27)
== END 2021-03-04 19:05 | disposition home or self-care (01) ==
LOC: HO.ED 16:30 → HO.SSS 17:23
PROVIDERS: Emergency Provider Emergency Medicine; PCP Internal Medicine; Visit Provider Urology
PROC: (CPT 51102; principal; 2021-03-04 16:30)
DX: T83.028A Displacement of other urinary catheter, initial encounter (principal); X58.XXXA Exposure to other specified factors, initial encounter; Z46.6 Encounter for fitting and adjustment of urinary device; N28.1 Cyst of kidney, acquired; N20.0 Calculus of kidney; K57.30 Diverticulosis of large intestine without perforation or abscess without bleeding; I10 Essential (primary) hypertension; D64.9 Anemia, unspecified; Z85.46 Personal history of malignant neoplasm of prostate; Z90.79 Acquired absence of other genital organ(s); Z79.899 Other long term (current) drug therapy
CPT/HCPCS: 51710; 74176; 76857; 96361; 96365; 96375; 96376; 99284; 99285; C1758; C1769; J1956; J2250; J3010

== ENCOUNTER → 2021-03-09 10:41 | Outpatient (BNVA) | payer MEDICARE, SELFPAY | PROVIDERS: PCP Internal Medicine; Visit Provider Urology | DX: T83.111 Breakdown (mechanical) of implanted urinary sphincter (principal); C61 Malignant neoplasm of prostate; R97.21 Rising PSA following treatment for malignant neoplasm of prostate | CPT/HCPCS: 99212 ==

== ENCOUNTER → 2021-04-14 08:47 | Outpatient (BNVA) | payer MEDICARE, SELFPAY | PROVIDERS: PCP Internal Medicine; Visit Provider Urology | DX: T83.111A Breakdown (mechanical) of implanted urinary sphincter, initial encounter (principal) | CPT/HCPCS: 99212 ==

== ENCOUNTER 2021-06-21 13:11 | Outpatient (REF) | payer MEDICARE, SELFPAY ==
--- NOTE | ~2021-06-21 | US_ITS ---
EXAMINATION: US RETROPERITONEAL LIMITED (RENAL ONLY) CLINICAL INFORMATION: Chronic kidney disease, hypertension. COMPARISON: CT abdomen and pelvis without contrast dated 03/04/2021. Bilateral renal ultrasound dated 01/19/2021. Renals only ultrasound dated 07/13/2016. MR abdomen without contrast dated 12/09/2008. TECHNIQUE: Real-time imaging of the kidneys. FINDINGS: RIGHT KIDNEY: 9.6 x 5.6 x 4.9 cm (SAG x AP x TRV). The kidney is normal in size and echogenicity. Slightly lobulated contour. Renal cortical thickness is normal. No renal calculi or hydronephrosis. Redemonstration of multiple simple-appearing cysts with the largest measuring up to 4.2 cm. Findings are similar when compared to the prior CT. LEFT KIDNEY: 9.4 x 4.9 x 4.5 cm (SAG x AP x TRV). The kidney is normal in size and echogenicity. Slightly lobulated contour. Renal cortical thickness is normal. No renal calculi or hydronephrosis. Redemonstration of multiple simple-appearing cysts with the largest measuring up to 3.1 cm, similar when compared to the prior CT. US/US renal BI IMPRESSION: Multiple bilateral simple-appearing renal cysts are redemonstrated, similar when compared to the prior CT. No hydronephrosis or nephrolithiasis.
== END 2021-06-21 13:12 | disposition home or self-care (01) ==
LOC: HO.US 13:11
PROVIDERS: PCP Internal Medicine; Visit Provider Internal Medicine Nephrology
DX: I12.9 Hypertensive chronic kidney disease with stage 1 through stage 4 chronic kidney disease, or unspecified chronic kidney disease (principal); N18.31 Chronic kidney disease, stage 3a
CPT/HCPCS: 76775

== ENCOUNTER 2021-09-13 11:21 | Outpatient (REF) | payer MEDICARE, SELFPAY ==
[2021-09-13 12:17] LABS: COVID-19 Test Negative (Negative)
== END 2021-09-13 11:22 | disposition home or self-care (01) ==
LOC: HO.LAB 11:21
PROVIDERS: Visit Provider Internal Medicine
DX: Z20.822 Contact with and (suspected) exposure to COVID-19 (principal)
CPT/HCPCS: 36415; 87635; C9803

== ENCOUNTER 2021-10-11 09:27 | Outpatient (REF) | payer MEDICARE, SELFPAY ==
[2021-10-11 10:44] LABS: Prostate Specific Antigen 0.65 ng/mL (<0.05-4.0)
== END 2021-10-11 09:28 | disposition home or self-care (01) ==
LOC: HO.LAB 09:27
PROVIDERS: PCP Internal Medicine; Visit Provider Urology
DX: Z12.5 Encounter for screening for malignant neoplasm of prostate (principal); R97.21 Rising PSA following treatment for malignant neoplasm of prostate
CPT/HCPCS: 36415; 84153

== ENCOUNTER → 2021-10-13 08:47 | Outpatient (BNVA) | payer MEDICARE, SELFPAY | PROVIDERS: PCP Internal Medicine; Visit Provider Urology | DX: Z13.89 Encounter for screening for other disorder (principal) | CPT/HCPCS: Q3014 ==

== ENCOUNTER 2021-10-29 17:39 | Inpatient (IN) | payer MEDICARE, SELFPAY ==
--- NOTE | ~2021-10-29 | CT_ITS ---
EXAMINATION: CT ABDOMEN AND PELVIS WITH CONTRAST CLINICAL INFORMATION: Right flank pain COMPARISON: Renal ultrasound 06/21/2021, CT abdomen pelvis 07/04/2021 TECHNIQUE: Multidetector volumetric images were obtained from the superior aspect of the liver through the pubic symphysis following administration 85 mL of Omnipaque 350 intravenous contrast. Sagittal and coronal reformatted images were obtained on the technologist's workstation. Oral contrast: No This CT examination was performed using dose optimization techniques as appropriate, variously including the following: *Automated exposure control *Adjustment of mA and/or kV according to patient size (this includes techniques or standardized protocols for targeted exams where dose is matched to indication/reason for exam; i.e. extremities or head) *Use of iterative reconstruction technique DLP: 568 mGy-cm FINDINGS: LUNG BASES: The visualized lung bases are unremarkable. LIVER, GALLBLADDER, AND BILIARY TREE: The liver is normal in size, shape, and attenuation. No focal hepatic lesion or biliary ductal dilatation is present. Status post cholecystectomy PANCREAS: Unremarkable. SPLEEN: Unremarkable. ADRENAL GLANDS: Unremarkable. KIDNEYS AND URETERS: Right kidney: There is perinephric stranding around the right kidney. Right-sided hydronephrosis is present. Simple right renal cysts are present the largest measuring 4.5 cm. The right ureter is is dilated and can be followed down to the level of the bladder. A tiny calculus is present within the distal left ureter at the UVJ. This measures only 1.4 mm . No other right-sided calculi are seen. Left kidney: The left kidney border is lobular. Multiple cysts are present the largest measuring 3.4 cm. No left-sided hydronephrosis is seen. No left-sided renal calculi are seen. BLADDER: Unremarkable. GASTROINTESTINAL TRACT: There are scattered colonic diverticula without diverticulitis. The small and large bowel are unremarkable. The appendix is unremarkable. ABDOMINAL WALL: No significant hernia is appreciated. Small bilateral inguinal hernias are seen containing only fat. LYMPH NODES: No retroperitoneal lymphadenopathy. VASCULAR: Unremarkable. There is some minimal calcific plaque without aneurysm. PELVIC VISCERA: Since the prior exam, the patient's penile pump reservoir has been removed from the space of Retzius and soft tissue thickening remains in this location. In addition, the patient's penile prosthesis appears to have been removed. OSSEOUS STRUCTURES: Degenerative changes present in the spine most marked at L5-S1. No bony destructive lesions are seen CT/CT abdomen pelvis w con IMPRESSION: Right-sided hydronephrosis secondary to a tiny 1.4 mm obstructing distal right ureteral calculus at the ureterovesical junction. Other incidental findings as described above Fleischner guidelines were followed.
--- NOTE | ~2021-10-29 | CT_ITS ---
EXAMINATION: CT ABDOMEN AND PELVIS WITHOUT CONTRAST CLINICAL INFORMATION: Reevaluation of renal calculus. Question resolution of hydronephrosis. COMPARISON: October 29, 2021 and March 04, 2021 TECHNIQUE: Multidetector volumetric imaging was performed from the superior aspect of the liver through the pubic symphysis. Sagittal and coronal reformatted images were obtained on the technologist's workstation. This CT examination was performed using dose optimization techniques as appropriate, variously including the following: *Automated exposure control *Adjustment of mA and/or kV according to patient size (this includes techniques or standardized protocols for targeted exams where dose is matched to indication/reason for exam; i.e. extremities or head) *Use of iterative reconstruction technique DLP: 610 mGy-cm FINDINGS: LUNG BASES: The visualized lung bases are unremarkable. No pleural or pericardial effusion. Heart normal size. LIVER, GALLBLADDER, AND BILIARY TREE: The liver is normal in size, shape, and attenuation. No focal hepatic lesion or biliary ductal dilatation is present. Status post cholecystectomy. PANCREAS: Unremarkable. SPLEEN: Unremarkable. ADRENAL GLANDS: Unremarkable. KIDNEYS AND URETERS: Right kidney: There are right renal cysts present largest of which is in the upper pole measuring approximately 3.8 cm in diameter. There is again noted to be perinephric fat stranding as well as small amount of fluid in the pararenal space. There has been resolution of hydronephrosis since previous day's study. There is no longer seen columnization of the right ureter. The ureterovesical junction calculus is not identified. There is some periureteral fat stranding within the pelvis. Left kidney: There is a lobular contour to the left kidney. Multiple cysts are present. No hydronephrosis. There are some regions of increased density about the upper collecting system however this may be related to retained contrast rather than true calculi. Left ureter appears unremarkable. BLADDER: There is anterior mass impression from hematoma from recent surgery. Contrast is seen filling the urinary bladder. GASTROINTESTINAL TRACT: No dilated loops of large or small bowel are evident. No free air is seen. There is a small amount of free fluid noted. There are some scattered colonic diverticula present. No pericolonic inflammatory change is seen. The appendix is visualized and appears unremarkable. ABDOMINAL WALL: There are small bilateral fat-containing inguinal hernias. LYMPH NODES: No lymphadenopathy is appreciated. VASCULAR: No significant abnormality identified. No aneurysm. PELVIC VISCERA: Status post prostatectomy. Anterior abdominal wall and retroperitoneal hematoma without change from prior days study. OSSEOUS STRUCTURES: No suspicious destructive bony lesions identified. Multilevel degenerative disc disease is seen most significant at the L5-S1 level. CT/CT abdomen pelvis wo con IMPRESSION: Resolution of right hydronephrosis. Numerous bilateral renal cysts present including right parapelvic cysts. Previously noted right ureterovesical junction calculus is not identified on today's study. Otherwise no significant change from prior days study.
[2021-10-29 17:46] VITALS: BP 155/83; PULSE 70; RESP 16; TEMP 36.4; O2SAT 100; BMI 30.8
--- NOTE | 2021-10-29 18:39 | ED.ABDPAIN ---
HPI - Abdominal Pain General Chief Complaint: Abdominal Pain Stated Complaint: Kidney Stone Time Seen by Provider: 10/29/21 17:52 Source: patient Mode of arrival: ambulatory Limitations: language barrier History of Present Illness HPI narrative: 76-year-old male with a past medical history of prostate cancer status post prostatectomy, anemia, hypertension, GERD, dizziness, anatomic structure of urinary, and a remote history of kidney stones, presents with right flank pain radiating to his right lower quadrant that started at noon today. Patient states the pain has been a constant pressure and is a 7/10. He had pain in his urethra, but that has resolved. No dysuria, no hematuria, no fevers. No penile pain, testicular pain, no penile discharge. Patient does not currently have a Wilson. He has been mildly nauseous, and at 3:00 p.m. he became sweaty. No vomiting, no diarrhea. Patient had a testicular abscess and had MD elicited complaint: flank pain Pertinent past history: kidney stones Onset (ago): hour(s) (6) Pain Consistency: constant Location: RLQ and R flank Severity: severe Pain scale (0-10): 8 Quality: other (pressure) Radiation: RLQ Exacerbating factors: movement Relieving factors: nothing Associated symptoms: nausea Related Data Home Medications Medication Instructions Recorded Confirmed lisinopril 10 mg tablet 10 mg PO DAILY 08/06/20 03/04/21 Previous Rx's Medication Instructions Recorded omeprazole 20 mg capsule,delayed 20 mg PO DAILY 90 Days #90 cap 09/22/20 release Allergies Allergy/AdvReac Type Severity Reaction Status Date / Time No Known Allergies Allergy Verified 10/13/21 08:48 [No Known Allergies*] Review of Systems Constitutional: Denies body ache(s), Denies chills, Denies fatigue, Denies fever(s) and Denies headache(s) Eyes: Denies diplopia Denies dizziness, Denies otalgia, Denies headache(s), Denies post nasal drip, Denies sinus pain, Denies sinus pressure and Denies sore throat Cardiovascular: Denies chest pain, Denies syncope, Denies leg edema, Denies lightheadedness, Denies Loss of Consciousness, Denies palpitations and Denies dyspnea Respiratory: Denies chest congestion, Denies cough and Denies dyspnea Gastrointestinal: Reports abdominal pain, Denies hematochezia, Denies constipation, Denies diarrhea, Reports nausea and Denies vomiting Genitourinary: Denies hematuria, Denies oliguria, Denies difficulty urinating, Denies genital lesions, Denies genital pain, Reports flank pain, Denies scrotal swelling, Denies testicular mass, Denies testicular pain, Denies urinary frequency, Reports urinary incontinence (chronic, wears pull-ups) and Denies urinary urgency Musculoskeletal: Reports back pain Skin/Breast: Denies erythema and Denies rash Denies confusion, Denies dizziness, Denies syncope and Denies headache(s) Psychiatric: Denies anxiety, Denies confusion and Denies depression Endocrine: Denies fatigue and Denies palpitations Physical Exam Vital Signs: Vital Signs: Last Vital Signs Temp 97.6 F 10/29/21 17:46 Pulse 70 10/29/21 17:46 Resp 16 10/29/21 17:46 BP 155/83 H 10/29/21 17:46 Pulse Ox 100 10/29/21 17:46 BMI result Body Mass Index 30.8 Const: General: alert and awake; No confusion Orientation/consciousness: patient oriented x3 and No confusion Limitations: no limitations HENMT: Head: Yes normal to inspection, Yes normocephalic and Yes atraumatic Ears: hearing grossly normal bilaterally, external ears normal, TM's normal bilaterally and EAC's normal General nose exam: Normal external nose present Face and sinus: Yes normal facial exam and Yes sinuses nontender Mouth: Normal oral and palatal mucosa present Throat: Yes posterior oropharynx normal Eyes: Conjunctivae: conjunctivae normal Pupils: Equal, round and reactive pupils present EOM: EOMs intact bilaterally Neck: Neck: Yes full ROM, Yes no lymphadenopathy and Yes supple Resp: Effort & Inspection: normal respiratory effort and able to speak in complete sentences Auscultation: clear to auscultation bilaterally, no crackles, no rales, no rhonchi and no wheezes Cardio: Rate: regular rate Rhythm: regular rhythm Heart sounds: S1 normal heart sound present and S2 normal heart sound present GI: Inspection: Yes normal to inspection Palpation (GI): Soft to palpation, nontender, no guarding and not rigid Percussion: Yes normal to percussion Auscultation: normal bowel sounds : General: Yes CVA tenderness on the right Penis: normal penis and circumcised Meatus: meatus normal, No Blood at meatus present and No Erythema at meatus Scrotum: scrotum normal, no ecchymosis, not edematous, not erythematous, no masses and no scrotal swelling Testes: testicular lie normal, epididymides normal, no testicular mass, no testicular swelling and no testicular tenderness Back/Spine/Pelvis: Back: CVA tenderness Skin: Other: Scar in lower suprapubic area Neuro: General: patient oriented x3 and No confusion Cranial nerves: Yes Equal, round and reactive pupils present Extrem: General: Yes normal to inspection and Yes full ROM Psych: Appearance: grossly normal Affect: normal affect Attitude: cooperative Thought process: Normal thought process present Course Course Course Narrative: 76-year-old male presents with right flank pain radiating to his right lower quadrant that started needed today. Pain is constant and is a 7/10. On exam, patient is afebrile with stable vitals, patient has right CVA tenderness and a benign abdominal exam, patient has scarring in his suprapubic region due to prostate surgeries. Genital exam is normal. Will get labs, urine, CT abdomen pelvis, gave morphine and Zofran Reevaluation(s) Reevaluation #1: Labs are remarkable for anemia that is close to patient's baseline with an H&H of 15.5 in 37.8. Patient's creatinine is 1.7, which looks to be about his baseline. The sign patient out to Karen Contreras NP, pending urine and CT abdominal pelvis MDM - Abdominal Pain Lab Data Result diagrams: 10/29/21 19:57 10/29/21 19:57 Labs: Lab Results 10/29/21 10/29/21 10/29/21 Range/Units 19:57 19:57 19:57 WBC 10.5 (4.8-10.8) X10*3/uL RBC 4.17 L (4.60-5.80) X10*6/uL Hgb 11.5 L (14.0-18.0) g/dl Hct 37.8 L (42.0-52.0) % MCV 90.6 (80.0-98.0) fL MCH 27.6 (27.0-33.0) pg MCHC 30.4 L (31.0-36.0) g/dl RDW 15.8 (11.0-16.0) % Plt Count 216 (160-400) X10*3/uL MPV 10.6 (9.4-12.4) fL Immature Gran % (Auto) 0.4 (0.0-0.4) % Neut % (Auto) 76.0 H (45-73) % Lymph % (Auto) 15.6 L (20-40) % [place] % (Auto) 7.2 (2-11) % Eos % (Auto) 0.6 (0-4) % Baso % (Auto) 0.2 (0-2) % Lymph # (Auto) 1.6 (1.2-4.9) X10*3/uL [place] # (Auto) 0.8 (0.1-1.2) X10*3/uL Eos # (Auto) 0.1 (0.0-0.4) X10*3/uL Baso # (Auto) 0.0 (0.0-0.2) X10*3/uL Abs Immat Gran (auto) 0.04 H (0.00-0.03) X10*3/uL Absolute Neuts (auto) 8.0 (2.0-8.3) x10*3/uL Absolute Nucleated RBC 0.000 (0.0-0.012) X10*3/uL Nucleated RBC % (auto) 0.0 (0.0-0.2) /100WBC Sodium 141 (135-145) mmol/L Potassium 4.7 (3.3-5.1) mmol/L Chloride 108 (96-108) mmol/L Carbon Dioxide 24 (22-29) mmol/L Anion Gap 14 (12-20) BUN 20 H (9-16) mg/dL Creatinine 1.70 H (0.5-1.4) mg/dL Estim Creat Clear Calc 40.6 Estimated GFR 40 Random Glucose 105 (60-115) mg/dL Calcium 9.6 (8.4-10.2) mg/dL Total Bilirubin 0.8 (0.0-1.0) mg/dL AST 16 (5-37) U/L ALT 16 (0-40) U/L Alkaline Phosphatase 88 (39-117) U/L Total Protein 7.4 (6.5-8.0) g/dL Albumin 3.7 (3.5-5.0) g/dL COVID-19 ([facility]) Negative (Negative) COVID-19 Clin Com See Note Discharge Plan Discharge Clinical Impression: Acute right flank pain Prescriptions: No Action omeprazole 20 mg capsule,delayed release(DR/EC) 20 mg PO DAILY 90 Days Qty: 90 RF: 3 lisinopril 10 mg tablet 10 mg PO DAILY RF: 0 PMFSH Past Medical History Medical History Anastomotic stricture of urinary tract Anemia Dizziness GERD (gastroesophageal reflux disease) HTN (hypertension) Hypertension Loss of balance Prostate cancer Urgency incontinence Surgical History History of kidney stones History of prostatectomy History of prostatectomy Hx laparoscopic cholecystectomy Family History Family History Father No problems noted. Mother Cancer Maternal Grandfather Cancer Social History Social History (Updated 10/13/21 @ 08:50 by Rosalba Ladd CMA) Household Members: Family Housing: House Alcohol intake: never Patient Tobacco Use Status: Former Tobacco user Advance Directives: No Advance Directives Information Provided: Yes service: No Current occupational status: disabled
[2021-10-29 20:03] LABS: MANUAL DIFF FLAG NO
[2021-10-29 20:04] LABS: Basophils Percent Auto 0.2 % (0-2); Eosinophils Absolute Auto 0.1 X10*3/uL (0.0-0.4); Eosinophils Percent Auto 0.6 % (0-4); Hematocrit 37.8 % (42.0-52.0); Hemoglobin 11.5 g/dl (14.0-18.0); Imm Gran Abs Auto 0.04 X10*3/uL (0.00-0.03); Imm Gran Pct Auto 0.4 % (0.0-0.4); Lymphocytes Absolute Auto 1.6 X10*3/uL (1.2-4.9); Lymphocytes Percent Auto 15.6 % (20-40); Mean Corpuscular HGB Conc 30.4 g/dl (31.0-36.0); Mean Corpuscular Hemoglobin 27.6 pg (27.0-33.0); Mean Corpuscular Volume 90.6 fL (80.0-98.0); Mean Platelet Volume 10.6 fL (9.4-12.4); Monocytes Absolute Auto 0.8 X10*3/uL (0.1-1.2); Monocytes Percent Auto 7.2 % (2-11); Platelet Count 216 X10*3/uL (160-400); Red Blood Count 4.17 X10*6/uL (4.60-5.80); Red Cell Distribution Width 15.8 % (11.0-16.0); White Blood Count 10.5 X10*3/uL (4.8-10.8)
[2021-10-29] MEDS: 0.9 % Sodium Chloride 1,000 ML 999 ML IV (20:09)
[2021-10-29] MEDS: ondansetron HCL 4 MG/2 ML VIAL IVPUSH (20:09)
[2021-10-29] MEDS: Morphine Sulfate 4 MG/ML CARTRIDGE IVPUSH (20:09)
[2021-10-29 20:23] LABS: COVID-19 Test Negative (Negative)
[2021-10-29 20:25] LABS: Alanine Aminotransferase 16 U/L (0-40); Albumin Level 3.7 g/dL (3.5-5.0); Alkaline Phosphatase 88 U/L (39-117); Anion Gap 14 (12-20); Aspartate Amino Transferase 16 U/L (5-37); Bilirubin Total 0.8 mg/dL (0.0-1.0); Blood Urea Nitrogen 20 mg/dL (9-16); Calcium 9.6 mg/dL (8.4-10.2); Carbon Dioxide 24 mmol/L (22-29); Chloride 108 mmol/L (96-108); Creatinine Clr Calc Pharmacy 40.6; Estimated Glomerular Filt Rate 40; Glucose Random 105 mg/dL (60-115); Potassium 4.7 mmol/L (3.3-5.1); Sodium 141 mmol/L (135-145); Total Protein 7.4 g/dL (6.5-8.0)
[2021-10-29] MEDS: iohexoL 350 MG/ML 100 ML INFUS..BTL 85 ML IV (21:37)
--- NOTE | 2021-10-29 23:34 | PM.IMHP ---
History of Present Illness Date of Service: 10/29/21 Chief Complaint: Right flank pain 76-year-old male with a past medical history of hypertension, GERD, anemia, anastomotic stricture of the urinary tract e, kidney stones, history of prostate cancer, history of recurrent UTIs presented to the hospital with a chief complaint of right flank pain. Patient reported will follow up for the past 1 day he has been having right flank pain, associated nausea; denies any diarrhea. Denies any fever chills cough. Complains of difficulty urination Denies any chest pain palpitations lightheadedness or dizziness. Review of all other systems is negative except mentioned above ER course: Per ER team patient noted to have right flank tenderness; CT scan showed 1.4 mm kidney stone, right-sided hydronephrosis, perinephric stranding concerning for pyelonephritis. Given ceftriaxone. Urology notified. Admitted for further management. [facility] Medical History Anastomotic stricture of urinary tract Anemia Dizziness GERD (gastroesophageal reflux disease) HTN (hypertension) Hypertension Loss of balance Prostate cancer Urgency incontinence Family History Father No problems noted. Mother Cancer Maternal Grandfather Cancer Pertinent family history: As above Surgical History History of kidney stones History of prostatectomy History of prostatectomy Hx laparoscopic cholecystectomy Social History (Updated 10/13/21 @ 08:50 by Rosalba Ladd CMA) Household Members: Family Housing: House Alcohol intake: never Patient Tobacco Use Status: Former Tobacco user Advance Directives: No Advance Directives Information Provided: Yes service: No Current occupational status: disabled Meds Allergies Allergy/AdvReac Type Severity Reaction Status Date / Time No Known Allergies Allergy Verified 10/13/21 08:48 [No Known Allergies*] Active Medications: Current Medications Acetaminophen (Acetaminophen 325 Mg Tablet) 650 mg PO Q6H PRN PRN Reason: Pain, Mild (Pain Scale 1-3) Hydromorphone HCl (Hydromorphone Hcl 0.5 Mg/0.5 Ml Syringe) 0.5 mg IVPUSH Q4H PRN; Protocol PRN Reason: Pain, Severe (Pain Scale 7-10) Sodium Chloride (Ns) 1,000 mls @ 50 mls/hr IVCONT .Q20H JAM Ceftriaxone Sodium 1 gm/ (Sodium Chloride) 50 mls @ 100 mls/hr IV Q24H JAM Melatonin (Melatonin 3 Mg Tablet) 6 mg PO BEDTIME PRN PRN Reason: Insomnia Senna (Sennosides 8.6 Mg Tablet) 17.2 mg PO BEDTIME PRN PRN Reason: Constipation Sodium Chloride (0.9 % Sodium Chloride Flush 3 Ml Syringe) 3 ml IVFLUSH QSHIFT [facility] Home Medications Medication Instructions Recorded Confirmed Last Taken Type lisinopril 10 mg tablet 10 mg PO DAILY 08/06/20 10/29/21 03/01/21 History Physical Exam Vital Signs and Narrative: Vital Signs: Last Vital Signs Temp 97.6 F 10/29/21 17:46 Pulse 70 10/29/21 17:46 Resp 16 10/29/21 17:46 BP 155/83 H 10/29/21 17:46 Pulse Ox 100 10/29/21 17:46 BMI result Body Mass Index 30.8 Gen: Appears be in no acute distress HEENT: NCAT, Moist mucosa. Pulmonary: Vesicular breath sounds, fair air entry CVS: Normal S1-S2 Abdomen: BS+, Soft, tender in the right flank Extremities: Warm well perfused Neuro: Alert and awake. Results Labs CBC and Chem 7: 10/29/21 19:57 10/29/21 19:57 Labs: Laboratory Results - last 24 hr 10/29/21 10/29/21 10/29/21 19:57 19:57 19:57 MCV 90.6 MCH 27.6 MCHC 30.4 L RDW 15.8 Plt Count 216 MPV 10.6 Immature Gran % (Auto) 0.4 Neut % (Auto) 76.0 H Lymph % (Auto) 15.6 L [place] % (Auto) 7.2 Eos % (Auto) 0.6 Baso % (Auto) 0.2 Lymph # (Auto) 1.6 [place] # (Auto) 0.8 Eos # (Auto) 0.1 Baso # (Auto) 0.0 Abs Immat Gran (auto) 0.04 H Absolute Neuts (auto) 8.0 Absolute Nucleated RBC 0.000 Nucleated RBC % (auto) 0.0 Anion Gap 14 Creatinine 1.70 H Estim Creat Clear Calc 40.6 Estimated GFR 40 Random Glucose 105 Calcium 9.6 Total Bilirubin 0.8 AST 16 ALT 16 Alkaline Phosphatase 88 Total Protein 7.4 Albumin 3.7 COVID-19 ([facility]) Negative COVID-19 Clin Com See Note Imaging Radiologist's Impressions: Impressions Abdomen/Pelvis CT 10/29/21 21:55 IMPRESSION: Right-sided hydronephrosis secondary to a tiny 1.4 mm obstructing distal right ureteral calculus at the ureterovesical junction. Other incidental findings as described above Fleischner guidelines were followed. Assessment and Plan (1) Kidney stone: Status: Acute (2) Acute pyelonephritis: Status: Acute 76-year-old male with a past medical history of hypertension, GERD, anemia, anastomotic stricture of the urinary tract e, kidney stones, history of prostate cancer, history of recurrent UTIs presented to the hospital with a chief complaint of right flank pain. Noted to have kidney stone/right-sided hydronephrosis/pyelonephritis. Admitted for further management. Kidney stone: Causing right-sided hydronephrosis. Urology was notified. Pain control. Pyelonephritis: Continue ceftriaxone. Follow up cultures. For all other chronic conditions, home medications will be continued once med rec is done DVT prophylaxis: SCD boots Code status: Full code Quality Stroke Does the patient have a stroke diagnosis?: No VTE Prior VTE?: No VTE Risk Level:: Medical - low VTE Device Contraindication: N/A - Device Ordered VTE Drug Contraindication: Treatment Not Indicated
[2021-10-30 00:02] VITALS: BP 139/86; PULSE 75; RESP 18; O2SAT 100
--- NOTE | 2021-10-30 01:07 | PC.NURSE ---
tigercSignStorey message sent to rashad regarding ABX orders. Per MD Rangel the pt does require blood cultures to be obtained prior to starting ordered antibiotics. New orders placed, blood cultures to be obtained prior to starting antibiotics
[2021-10-30] MEDS: cefTRIAXone sodium 1 GM in 0.9 % Sodium Chloride 50 ML IV (01:36)
[2021-10-30] MEDS: 0.9 % Sodium Chloride 1,000 ML 50 ML IVCONT ×2 (01:36→20:21)
[2021-10-30 03:53] LABS: Appearance Urine HAZY; Color Urine STRAW; Glucose Urine UA NEG (NEG); Leukocyte Esterase Urine 1+ (NEG); Nitrite Urine NEG (NEG); PH 6.5 (5.0-8.0); UACC Culture Trigger YES; Urine Blood 3+ (NEG); Urine Ketones NEG (NEG); Urine Protein TRACE MG/DL (NEG-TRACE)
[2021-10-30 03:58] LABS: Bacteria Urine 1+ /LPF; Squamous Epithelial Cell Urine 1+ /LPF; UACC CULT YES; WBC Urine 30-49 /HPF (0-4)
[2021-10-30 03:59] LABS: RBC Urine 50-75 /HPF (0)
[2021-10-30 09:01] LABS: MANUAL DIFF FLAG NO
[2021-10-30 09:04] LABS: Basophils Percent Auto 0.1 % (0-2); Eosinophils Percent Auto 0.2 % (0-4); Hematocrit 37.8 % (42.0-52.0); Hemoglobin 11.5 g/dl (14.0-18.0); Imm Gran Abs Auto 0.07 X10*3/uL (0.00-0.03); Imm Gran Pct Auto 0.6 % (0.0-0.4); Lymphocytes Absolute Auto 0.9 X10*3/uL (1.2-4.9); Lymphocytes Percent Auto 7.3 % (20-40); Mean Corpuscular HGB Conc 30.4 g/dl (31.0-36.0); Mean Corpuscular Hemoglobin 27.2 pg (27.0-33.0); Mean Corpuscular Volume 89.4 fL (80.0-98.0); Mean Platelet Volume 11.4 fL (9.4-12.4); Monocytes Absolute Auto 0.8 X10*3/uL (0.1-1.2); Monocytes Percent Auto 6.3 % (2-11); Neutrophils Absolute Auto 10.3 x10*3/uL (2.0-8.3); Neutrophils Percent Auto 85.5 % (45-73); Platelet Count 217 X10*3/uL (160-400); Red Blood Count 4.23 X10*6/uL (4.60-5.80); Red Cell Distribution Width 15.9 % (11.0-16.0)
[2021-10-30 09:18] LABS: Anion Gap 11 (12-20); Blood Urea Nitrogen 18 mg/dL (9-16); Calcium 9.4 mg/dL (8.4-10.2); Carbon Dioxide 26 mmol/L (22-29); Chloride 109 mmol/L (96-108); Creatinine Clr Calc Pharmacy 43.1; Estimated Glomerular Filt Rate 42; Glucose Random 124 mg/dL (60-115); Potassium 5.1 mmol/L (3.3-5.1); Sodium 141 mmol/L (135-145)
--- NOTE | 2021-10-30 11:54 | PM.UROCN ---
History of Present Illness Consult details Consult date: 10/30/21 Reason for consult: abdominal pain Review of Systems Review of Systems: pt with right flank pain c/w renal colic currently resolved Yes all other systems are reviewed and are negative [facility] Past Medical History Medical History Anastomotic stricture of urinary tract Anemia Dizziness GERD (gastroesophageal reflux disease) HTN (hypertension) Hypertension Loss of balance Prostate cancer Urgency incontinence Family History Family History Father No problems noted. Mother Cancer Maternal Grandfather Cancer Surgical History Surgical History History of kidney stones History of prostatectomy History of prostatectomy Hx laparoscopic cholecystectomy Social History Social History Household Members: Family Housing: House Alcohol intake: never Patient Tobacco Use Status: Former Tobacco user Advance Directives: No Advance Directives Information Provided: Yes service: No Current occupational status: disabled Meds Allergies Allergy/AdvReac Type Severity Reaction Status Date / Time No Known Allergies Allergy Verified 10/13/21 08:48 [No Known Allergies*] Active Medications: Current Medications Acetaminophen (Acetaminophen 325 Mg Tablet) 650 mg PO Q6H PRN PRN Reason: Pain, Mild (Pain Scale 1-3) Hydromorphone HCl (Hydromorphone Hcl 0.5 Mg/0.5 Ml Syringe) 0.5 mg IVPUSH Q4H PRN; Protocol PRN Reason: Pain, Severe (Pain Scale 7-10) Sodium Chloride (Ns) 1,000 mls @ 50 mls/hr IVCONT .Q20H [facility] Last Admin: 10/30/21 01:36 Dose: 50 mls/hr Documented by: Ceftriaxone Sodium 1 gm/ (Sodium Chloride) 50 mls @ 100 mls/hr IV Q24H [facility] Melatonin (Melatonin 3 Mg Tablet) 6 mg PO BEDTIME PRN PRN Reason: Insomnia Senna (Sennosides 8.6 Mg Tablet) 17.2 mg PO BEDTIME PRN PRN Reason: Constipation Sodium Chloride (0.9 % Sodium Chloride Flush 3 Ml Syringe) 3 ml IVFLUSH QSHIFT [facility] Last Admin: 10/30/21 09:51 Dose: Not Given Documented by: Home Medications Medication Instructions Recorded Confirmed Last Taken Type lisinopril 10 mg tablet 10 mg PO DAILY 08/06/20 10/29/21 03/01/21 History Physical Exam Vital Signs: Vital Signs: Last Vital Signs Temp 97.6 F 10/29/21 17:46 Pulse 75 10/30/21 00:02 Resp 18 10/30/21 00:02 BP 139/86 10/30/21 00:02 Pulse Ox 100 10/30/21 00:02 BMI result Body Mass Index 30.8 Const: General: cooperative Orientation/consciousness: patient oriented x3 Chest: Chest palpation & inspection: normal inspection of the chest Resp: Effort & Inspection: normal respiratory effort Cardio: Rate: regular rate Rhythm: regular rhythm : General: Yes no CVA tenderness Back/Spine/Pelvis: Back: no CVA tenderness Neuro: General: patient oriented x3 Results Labs Result diagrams: 10/30/21 08:29 10/30/21 08:29 Labs: Abnormal lab results 10/29/21 10/29/21 10/30/21 Range/Units 19:57 19:57 03:46 WBC (4.8-10.8) X10*3/uL RBC 4.17 L (4.60-5.80) X10*6/uL Hgb 11.5 L (14.0-18.0) g/dl Hct 37.8 L (42.0-52.0) % MCHC 30.4 L (31.0-36.0) g/dl Immature Gran % (Auto) (0.0-0.4) % Neut % (Auto) 76.0 H (45-73) % Lymph % (Auto) 15.6 L (20-40) % Lymph # (Auto) (1.2-4.9) X10*3/uL Abs Immat Gran (auto) 0.04 H (0.00-0.03) X10*3/uL Absolute Neuts (auto) (2.0-8.3) x10*3/uL Chloride (96-108) mmol/L Anion Gap (12-20) BUN 20 H (9-16) mg/dL Creatinine 1.70 H (0.5-1.4) mg/dL Random Glucose (60-115) mg/dL Urine Blood 3+ H (NEG) Ur Leukocyte Esterase 1+ H (NEG) Urine RBC 50-75 H (0) /HPF Urine WBC 30-49 H (0-4) /HPF 10/30/21 10/30/21 Range/Units 08:29 08:29 WBC 12.0 H (4.8-10.8) X10*3/uL RBC 4.23 L (4.60-5.80) X10*6/uL Hgb 11.5 L (14.0-18.0) g/dl Hct 37.8 L (42.0-52.0) % MCHC 30.4 L (31.0-36.0) g/dl Immature Gran % (Auto) 0.6 H (0.0-0.4) % Neut % (Auto) 85.5 H (45-73) % Lymph % (Auto) 7.3 L (20-40) % Lymph # (Auto) 0.9 L (1.2-4.9) X10*3/uL Abs Immat Gran (auto) 0.07 H (0.00-0.03) X10*3/uL Absolute Neuts (auto) 10.3 H (2.0-8.3) x10*3/uL Chloride 109 H (96-108) mmol/L Anion Gap 11 L (12-20) BUN 18 H (9-16) mg/dL Creatinine 1.60 H (0.5-1.4) mg/dL Random Glucose 124 H (60-115) mg/dL Urine Blood (NEG) Ur Leukocyte Esterase (NEG) Urine RBC (0) /HPF Urine WBC (0-4) /HPF Short CBC 10/29/21 10/30/21 Range/Units 19:57 08:29 WBC 10.5 12.0 H (4.8-10.8) X10*3/uL Hgb 11.5 L 11.5 L (14.0-18.0) g/dl Hct 37.8 L 37.8 L (42.0-52.0) % Plt Count 216 217 (160-400) X10*3/uL BMP 10/29/21 10/30/21 19:57 08:29 Sodium 141 141 Potassium 4.7 5.1 Chloride 108 109 H Carbon Dioxide 24 26 BUN 20 H 18 H Creatinine 1.70 H 1.60 H Calcium 9.6 9.4 Liver Function 10/29/21 Range/Units 19:57 Total Bilirubin 0.8 (0.0-1.0) mg/dL AST 16 (5-37) U/L ALT 16 (0-40) U/L Alkaline Phosphatase 88 (39-117) U/L Albumin 3.7 (3.5-5.0) g/dL Urine 10/30/21 Range/Units 03:46 Urine Color STRAW Urine Appearance HAZY Urine pH 6.5 (5.0-8.0) Ur Specific [place] 1.010 (1.005-1.025) Urine Protein TRACE (NEG-TRACE) MG/DL Urine Glucose (UA) NEG (NEG) MG/DL All other labs normal. Imaging Abdomen CT scan report/results: report reviewed and image reviewed Assessment and Plan (1) Kidney stone: Status: Acute (2) Acute right flank pain: Status: Acute (3) Acute pyelonephritis: Status: Acute cystoscopy right ureteroscopy laser stent Procedures Date of Service Date of Service: 10/30/21
--- NOTE | 2021-10-30 14:12 | P.PNIM_ITS ---
Subjective Subjective Date of Service: 10/30/21 Review of Systems Follow up pyelonephritis, stone pain has gone, patient feels good Denies chest pain, nausea, vomiting, diarrhea All other systems are reviewed and are negative Physical Exam Verdana 4l Vital Signs: Verdana 4d Verdana 4d Vital Signs: Verdana 4d Verdana 4Bd Last Vital Signs Verdana 4d Insurance Healthcare Consultant New 4d Insurance Healthcare Consultant New 4d Temp 97.6 F 10/29/21 17:46 Insurance Healthcare Consultant New 4d Pulse 75 10/30/21 00:02 Insurance Healthcare Consultant NewNew 4d Resp 18 10/30/21 00:02 BP 139/86 10/30/21 00:02 Pulse Ox 100 10/30/21 00:02 BMI result Body Mass Index 30.8 Appearing in no acute distress lung sounds are clear to auscultation heart regular rate rhythm, clear S1, S2 positive bowel sounds, abdomen is soft, nontender neuro patient is alert x3, no focal deficits Objective Data Active Medications Acetaminophen (Acetaminophen 325 Mg Tablet) 650 mg PO Q6H PRN PRN Reason: Pain, Mild (Pain Scale 1-3) Hydromorphone HCl (Hydromorphone Hcl 0.5 Mg/0.5 Ml Syringe) 0.5 mg IVPUSH Q4H PRN; Protocol PRN Reason: Pain, Severe (Pain Scale 7-10) Sodium Chloride (Ns) 1,000 mls @ 50 mls/hr IVCONT .Q20H [facility] Last Admin: 10/30/21 01:36 Dose: 50 mls/hr Documented by: AMRIK Ceftriaxone Sodium 1 gm/ (Sodium Chloride) 50 mls @ 100 mls/hr IV Q24H [facility] Melatonin (Melatonin 3 Mg Tablet) 6 mg PO BEDTIME PRN PRN Reason: Insomnia Senna (Sennosides 8.6 Mg Tablet) 17.2 mg PO BEDTIME PRN PRN Reason: Constipation Sodium Chloride (0.9 % Sodium Chloride Flush 3 Ml Syringe) 3 ml IVFLUSH QSHIFT [facility] Last Admin: 10/30/21 09:51 Dose: Not Given Documented by: AMRIK Non-Admin Reason: flushed in er Labs CBC & Chem 7: 10/30/21 08:29 10/30/21 08:29 Labs: Laboratory Results - last 24 hr 10/29/21 10/29/21 10/29/21 19:57 19:57 19:57 MCV 90.6 MCH 27.6 MCHC 30.4 L RDW 15.8 Plt Count 216 MPV 10.6 Immature Gran % (Auto) 0.4 Neut % (Auto) 76.0 H Lymph % (Auto) 15.6 L [place] % (Auto) 7.2 Eos % (Auto) 0.6 Baso % (Auto) 0.2 Lymph # (Auto) 1.6 [place] # (Auto) 0.8 Eos # (Auto) 0.1 Baso # (Auto) 0.0 Abs Immat Gran (auto) 0.04 H Absolute Neuts (auto) 8.0 Absolute Nucleated RBC 0.000 Nucleated RBC % (auto) 0.0 Anion Gap 14 Estim Creat Clear Calc 40.6 Estimated GFR 40 Random Glucose 105 Calcium 9.6 Total Bilirubin 0.8 AST 16 ALT 16 Alkaline Phosphatase 88 Total Protein 7.4 Albumin 3.7 Urine Color Urine Appearance Urine pH Ur Specific [place] Urine Protein Urine Glucose (UA) Urine Ketones Urine Blood Urine Nitrite Ur Leukocyte Esterase Urine RBC Urine WBC Ur Squamous Epith Cells Urine Bacteria COVID-19 (ZOILA) Negative COVID-19 Clin Com See Note 10/30/21 10/30/21 10/30/21 03:46 08:29 08:29 MCV 89.4 MCH 27.2 MCHC 30.4 L RDW 15.9 Plt Count 217 MPV 11.4 Immature Gran % (Auto) 0.6 H Neut % (Auto) 85.5 H Lymph % (Auto) 7.3 L [place] % (Auto) 6.3 Eos % (Auto) 0.2 Baso % (Auto) 0.1 Lymph # (Auto) 0.9 L [place] # (Auto) 0.8 Eos # (Auto) 0.0 Baso # (Auto) 0.0 Abs Immat Gran (auto) 0.07 H Absolute Neuts (auto) 10.3 H Absolute Nucleated RBC 0.000 Nucleated RBC % (auto) 0.0 Anion Gap 11 L Estim Creat Clear Calc 43.1 Estimated GFR 42 Random Glucose 124 H Calcium 9.4 Total Bilirubin AST ALT Alkaline Phosphatase Total Protein Albumin Urine Color STRAW Urine Appearance HAZY Urine pH 6.5 Ur Specific [place] 1.010 Urine Protein TRACE Urine Glucose (UA) NEG Urine Ketones NEG Urine Blood 3+ H Urine Nitrite NEG Ur Leukocyte Esterase 1+ H Urine RBC 50-75 H Urine WBC 30-49 H Ur Squamous Epith Cells 1+ Urine Bacteria 1+ COVID-19 (ZOILA) COVID-19 Clin Com Assessment and Plan (1) Kidney stone: Status: Acute (2) Acute pyelonephritis: Status: Acute Assessment and Plan: 76-year-old male with a past medical history of hypertension, GERD, anemia, anastomotic stricture of the urinary tract e, kidney stones, history of prostate cancer, history of recurrent UTIs presented to the hospital with a chief complaint of right flank pain.? Noted to have kidney stone/right-sided hydronephrosis/pyelonephritis.? Admitted for further management.? Kidney stone. 1.4mm obstructing stone right-sided hydronephrosis.? Discussed with urology, repeat CT to re-eval if stone has passed, if not OR tomorrow NPO after midnight if OR needed for stone retrieval Pyelonephritis Continue ceftriaxone.? Follow up cultures.? HTN. Stable CKD. Baseline DVT prophylaxis:? SCD boots Code status:? Full code Quality Stroke Does the patient have a stroke diagnosis?: No VTE Prior VTE?: No VTE Risk Level:: Medical - low VTE Device Contraindication: N/A - Device Ordered VTE Drug Contraindication: Treatment Not Indicated
[2021-10-31] MEDS: cefTRIAXone sodium 1 GM in 0.9 % Sodium Chloride 50 ML IV ×2 (00:55→21:49)
[2021-10-31] MEDS: 0.9 % Sodium Chloride Flush 3 ML SYRINGE IVFLUSH (00:55)
[2021-10-31 04:00] VITALS: PULSE 75
[2021-10-31 06:40] VITALS: BP 134/78; PULSE 90; RESP 16; TEMP 36.6; O2SAT 99
[2021-10-31 08:01] LABS: Hematocrit 34.6 % (42.0-52.0); Hemoglobin 10.7 g/dl (14.0-18.0); Mean Corpuscular HGB Conc 30.9 g/dl (31.0-36.0); Mean Corpuscular Volume 87.4 fL (80.0-98.0); Mean Platelet Volume 11.6 fL (9.4-12.4); Platelet Count 166 X10*3/uL (160-400); Red Blood Count 3.96 X10*6/uL (4.60-5.80); White Blood Count 12.5 X10*3/uL (4.8-10.8)
[2021-10-31 08:34] LABS: Anion Gap 13 (12-20); Blood Urea Nitrogen 17 mg/dL (9-16); Carbon Dioxide 23 mmol/L (22-29); Chloride 104 mmol/L (96-108); Creatinine Clr Calc Pharmacy 37.9; Estimated Glomerular Filt Rate 37; Glucose Random 129 mg/dL (60-115); Potassium 3.9 mmol/L (3.3-5.1); Sodium 136 mmol/L (135-145)
[2021-10-31 09:39] VITALS: BP 103/61; PULSE 93; RESP 12; TEMP 37.7; O2SAT 95
--- NOTE | 2021-10-31 11:51 | P.PNIM_ITS ---
Subjective Subjective Date of Service: 10/31/21 Review of Systems Follow up pyelonephritis, stone pain has gone, patient feels good Denies? chest pain, nausea, vomiting, diarrhea All other systems are reviewed and are negative Physical Exam Verdana 4l Vital Signs: Verdana 4d Verdana 4d Vital Signs: Verdana 4d Verdana 4Bd Last Vital Signs Verdana 4d Hotel Attendant New 4d Hotel Attendant New 4d Temp 99.8 F 10/31/21 09:39 Hotel Attendant New 4d Pulse 93 10/31/21 09:39 Hotel Attendant NewNew 4d Resp 12 10/31/21 09:39 BP 103/61 10/31/21 09:39 Pulse Ox 95 10/31/21 09:39 BMI result Body Mass Index 30.8 Appearing in no acute distress lung sounds are clear to auscultation heart regular rate rhythm, clear S1, S2 positive bowel sounds, abdomen is soft, nontender neuro patient is alert x3, no focal deficits Objective Data Active Medications Acetaminophen (Acetaminophen 325 Mg Tablet) 650 mg PO Q6H PRN PRN Reason: Pain, Mild (Pain Scale 1-3) Hydromorphone HCl (Hydromorphone Hcl 0.5 Mg/0.5 Ml Syringe) 0.5 mg IVPUSH Q4H PRN; Protocol PRN Reason: Pain, Severe (Pain Scale 7-10) Sodium Chloride (Ns) 1,000 mls @ 50 mls/hr IVCONT .Q20H [facility] Last Admin: 10/30/21 20:21 Dose: 50 mls/hr Documented by: FELECIA Ceftriaxone Sodium 1 gm/ (Sodium Chloride) 50 mls @ 100 mls/hr IV Q24H [facility] Last Infusion: 10/31/21 01:36 Dose: 0 mls/hr Documented by: NOMI Melatonin (Melatonin 3 Mg Tablet) 6 mg PO BEDTIME PRN PRN Reason: Insomnia Senna (Sennosides 8.6 Mg Tablet) 17.2 mg PO BEDTIME PRN PRN Reason: Constipation Sodium Chloride (0.9 % Sodium Chloride Flush 3 Ml Syringe) 3 ml IVFLUSH QSHIFT [facility] Last Admin: 10/31/21 09:30 Dose: Not Given Documented by: LOUISE Non-Admin Reason: IV Running Labs CBC & Chem 7: 10/31/21 07:14 12/26/21 07:14 Labs: Laboratory Results - last 24 hr 10/31/21 10/31/21 07:14 07:14 MCV 87.4 MCH 27.0 MCHC 30.9 L RDW 16.0 Plt Count 166 MPV 11.6 Absolute Nucleated RBC 0.000 Nucleated RBC % (auto) 0.0 Anion Gap 13 Estim Creat Clear Calc 37.9 Estimated GFR 37 Random Glucose 129 H Calcium 9.0 Microbiology Microbiology Results: Microbiology 10/30/21 Unknown Urine Culture - Preliminary Urine clean catch - Urine malin top Culture in progress. 10/30/21 01:27 Blood Culture - Preliminary Blood - Venous Enterococcus/Streptococcus sp 10/30/21 01:27 Blood Culture - Preliminary Blood - Venous Enterococcus/Streptococcus sp Assessment and Plan (1) Kidney stone: Status: Acute (2) Acute pyelonephritis: Status: Acute Assessment and Plan: 76-year-old male with a past medical history of hypertension, GERD, anemia, anastomotic stricture of the urinary tract e, kidney stones, history of prostate cancer, history of recurrent UTIs presented to the hospital with a chief c omplaint of right flank pain.? Noted to have kidney stone/right-sided hydronephrosis/pyelonephritis.? Admitted for further management.? Kidney stone. 1.4mm obstructing stone , with right-sided hydronephrosis Follow-up abdominal CT scan showed resolved hydronephrosis and no obstructing stone. Discussed with urology, no longer requiring intervention Pyelonephritis Continue ceftriaxone. Preliminary blood cultures Gram-positive cocci 2/2 Waiting for final blood cultures HTN. Stable CKD. Baseline Disposition final blood cultures pending DVT prophylaxis:? SCD boots Code status:? Full code Quality Stroke Does the patient have a stroke diagnosis?: No VTE Prior VTE?: No VTE Risk Level:: Medical - low VTE Device Contraindication: N/A - Device Ordered VTE Drug Contraindication: Treatment Not Indicated
[2021-10-31 14:47] VITALS: BP 108/65; PULSE 95; RESP 19; TEMP 38.3; O2SAT 94
[2021-10-31] MEDS: 0.9 % Sodium Chloride 1,000 ML 50 ML IVCONT (16:30)
--- NOTE | 2021-10-31 16:31 | MHC.CM.PN ---
CM MET WITH PT IN ED OVERFLOW BED 06 PT SLEEPING ON APPROACH BUT DOES WAKE FOR A FEW QUESTIONS PT LIVES ALONE AND IS INDEPENDENT WITH CARE PT CONFIRMS HIS PCP IS DOMINIC DOMINGUEZ PT HAD NO SERVICES MAPPING ANALYST PER PREVIOUS ADMISSION NOTES, PTS DAUGHTER, SOFÍA, IS HIS HCP IMM DELIVERED, ORIGINAL GIVEN TO PT, COPY TO MEDICAL RECORDS CURRENT DC PLAN IS HOME WITH NO SERVICES VS WITH [facility] PT TO ARRANGE TRANSPORT
[2021-10-31 19:23] VITALS: BP 122/70; PULSE 101; RESP 17; TEMP 38.7; O2SAT 95
[2021-10-31] MEDS: Acetaminophen 325 MG TABLET 650 MG PO (19:39)
[2021-10-31 22:32] VITALS: BP 104/65; PULSE 71; RESP 14; TEMP 37.3
[2021-11-01] VITALS (7 sets, daily range): BP systolic 102–130; BP diastolic 58–80; PULSE 59–91; RESP 14–20; TEMP 36.7–37.8; O2SAT 94–99
[2021-11-01] MEDS: 0.9 % Sodium Chloride Flush 3 ML SYRINGE IVFLUSH (07:54)
[2021-11-01 07:55] LABS: Anion Gap 14 (12-20); Blood Urea Nitrogen 22 mg/dL (9-16); Calcium 9.3 mg/dL (8.4-10.2); Carbon Dioxide 21 mmol/L (22-29); Chloride 106 mmol/L (96-108); Creatinine Clr Calc Pharmacy 40.8; Estimated Glomerular Filt Rate 40; Glucose Random 118 mg/dL (60-115); Potassium 4.6 mmol/L (3.3-5.1); Sodium 137 mmol/L (135-145)
[2021-11-01] MEDS: 0.9 % Sodium Chloride 1,000 ML 50 ML IVCONT (07:56)
--- NOTE | 2021-11-01 08:02 | PC.NURSE ---
Addendum entered by Nia Pacheco RN 11/01/21 09:36: BELONGINGS LIST COMPLETED BY THIS RN. AWAITING CALL BACK FROM FLOOR FOR REPORT. Original Note: IVF FOUND OFF AND DISCONNECTED FROM PT. IVF FLUIDS RESTARTED AND BAG CHANGED. DENIES PAIN. PT STATES FEELS BETTER WILL CONTINUE TO MONITOR.
--- NOTE | 2021-11-01 12:18 | PHA.PROG ---
Admission Date/Time: October 29, 2021 23:31 Indication: Bacteremia? Weight in k.358 kg Serum Creatinine - Last 168 Hours 10/29/21 10/30/21 10/31/21 19:57 08:29 07:14 Creatinine 1.70 H 1.60 H 1.82 H 11/01/21 06:51 Creatinine 1.69 H Estimated CrCl and GFR - Last 168 Hours 10/29/21 10/30/21 10/31/21 19:57 08:29 07:14 Estim Creat Clear Calc 40.6 43.1 37.9 Estimated GFR 40 42 37 11/01/21 06:51 Estim Creat Clear Calc 40.8 Estimated GFR 40 Vancomycin Loading Dose: 1750 Current Vancomycin Dosing Regimen: 1250 Q 24H Vancomycin Monitoring using AUC goal of 400 - 600 range with trough as surrogate marker: 559 MG/L HR Date and Time for next Vancomycin Level to be drawn: 11/03 @ 1100 Pharmacist Comments on Vancomycin Plan: Vancomycin dosing will take advantage of [employer] as a clinical decision support tool that uses Bayesian modeling to calculate individual patient's pharmacokinetic parameters and forecast the patient's drug concentration time course with the target goal AUC 24 range of 400 - 600 mg/L/hr.
--- NOTE | 2021-11-01 12:37 | P.PNIM_ITS ---
Subjective Subjective Date of Service: 11/01/21 Review of Systems Follow up pyelonephritis, stone, no further stone noted Now bacteremic, fevers overnight pain has gone, patient feels good Denies? chest pain, nausea, vomiting, diarrhea All other systems are reviewed and are negative Physical Exam Vital Signs: Vital Signs: Last Vital Signs Temp 98.1 F 11/01/21 11:04 Pulse 87 11/01/21 11:04 Resp 18 11/01/21 11:04 BP 127/79 11/01/21 11:04 Pulse Ox 94 11/01/21 11:04 BMI result Body Mass Index 30.8 Objective Data Active Medications Acetaminophen (Acetaminophen 325 Mg Tablet) 650 mg PO Q6H PRN PRN Reason: Pain, Mild (Pain Scale 1-3) Last Admin: 10/31/21 19:39 Dose: 650 mg Documented by: LOUISE Hydromorphone HCl (Hydromorphone Hcl 0.5 Mg/0.5 Ml Syringe) 0.5 mg IVPUSH Q4H PRN; Protocol PRN Reason: Pain, Severe (Pain Scale 7-10) Sodium Chloride (Ns) 1,000 mls @ 50 mls/hr IVCONT .Q20H [facility] Last Admin: 11/01/21 07:56 Dose: 50 mls/hr Documented by: SARAHI Vancomycin HCl 1,000 mg/Vancomycin HCl 750 mg/ Sodium Chloride 535 mls @ 267.5 mls/hr IV ONCE ONE Stop: 11/01/21 14:59 Vancomycin HCl 1,250 mg/ (Sodium Chloride) 250 mls @ 166.667 mls/hr IV Q24H [facility] Melatonin (Melatonin 3 Mg Tablet) 6 mg PO BEDTIME PRN PRN Reason: Insomnia Pharmacy Consult (Consult Rx Vancomycin Dosing) 1 each MISCELLANE DAILY PRN PRN Reason: Consult order Senna (Sennosides 8.6 Mg Tablet) 17.2 mg PO BEDTIME PRN PRN Reason: Constipation Sodium Chloride (0.9 % Sodium Chloride Flush 3 Ml Syringe) 3 ml IVFLUSH QSHIFT [facility] Last Admin: 11/01/21 07:54 Dose: 3 ml Documented by: SARAHI Labs CBC & Chem 7: 10/31/21 07:14 11/01/21 06:51 Labs: Laboratory Results - last 24 hr 11/01/21 06:51 Anion Gap 14 Estim Creat Clear Calc 40.8 Estimated GFR 40 Random Glucose 118 H Calcium 9.3 Microbiology Microbiology Results: Microbiology 10/30/21 Unknown Urine Culture - Preliminary Urine clean catch - Urine malin top Enterococcus/Streptococcus sp 10/30/21 01:27 Blood Culture - Final Blood - Venous Enterococcus faecalis 10/30/21 01:27 Blood Culture - Final Blood - Venous Enterococcus faecalis Assessment and Plan (1) Bacteremia: Status: Acute Assessment and Plan: 76-year-old male with a past medical history of hypertension, GERD, anemia, anastomotic stricture of the urinary tract e, kidney stones, history of prostate cancer, history of recurrent UTIs presented to the hospital with a chief complaint of right flank pain.? Noted to have kidney stone/right-sided hydronephrosis/pyelonephritis.? Admitted for further management.? Bacteremia Urine culture showing Enterococcus / Streptococcus Blood cultures showing Enterococcus faecalis sensitive to vancomycin Stop Rocephin Kidney stone. 1.4mm obstructing stone , with right-sided hydronephrosis Follow-up abdominal CT scan showed resolved hydronephrosis and no obstructing stone. Discussed with urology,? no longer requiring intervention Pyelonephritis Stop Rocephin urine culture showing Enterococcus /Streptococcus Waiting for final blood cultures HTN. Stable CKD. Baseline Disposition final blood cultures pending DVT prophylaxis:? SCD boots Code status:? Full code Attending Dr. Aguayo Quality Stroke Does the patient have a stroke diagnosis?: No VTE Prior VTE?: No VTE Risk Level:: Medical - low VTE Device Contraindication: N/A - Device Ordered VTE Drug Contraindication: Treatment Not Indicated
--- NOTE | 2021-11-01 14:00 | CA_ITS ---
Transthoracic Echocardiogram Patient (Last, First, Middle): Noel Dhillon, Gender: Male Date of : 1945 Age: 76 Procedure Date: 11/01/2021 Procedure Type: Transthoracic Echocardiogram [place] [facility] [place]: 170.18 cm Weight: 89.36 kg BSA: 2.01 m2 Heart Rate: bpm BP: 127 / 79 mmHg Hull Sorter: Referring MD: Nathalia Bahena NP Symptoms: Bacteremia Study Quality: Fair ECG Rhythm: Sinus Conclusions: - Normal left ventricular size, thickness, systolic function, and wall motion. - Normal right ventricular cavity size and systolic function. - No significant valvular or pericardial pathology. Findings Left Ventricle Normal left ventricular size, thickness, systolic function, and wall motion. The visually estimated ejection fraction is between 55-60%. Diastolic function is normal for age. Right Ventricle Normal right ventricular cavity size and systolic function. Atria Both atria are normal in size. Aortic Valve Normal aortic valve structure and function. There is no aortic valve stenosis. There is no aortic valve regurgitation. Mitral Valve Normal mitral valve structure and function. There is no mitral valve regurgitation. There is no mitral valve stenosis. Pulmonic Valve The pulmonic valve is likely normal. Tricuspid Valve Normal tricuspid valve structure. There is trace tricuspid valve regurgitation. Normal right atrial pressure. There is no evidence of pulmonary hypertension. Great Vessels There is mild dilatation of the ascending aorta measuring 3.90 cm. The visualized portions of the pulmonary artery and branches are normal. Venous The inferior vena cava is normal in size and collapses greater than 50% with inspiration. Pericardium/Pleural There is no evidence of pericardial effusion. Prior Study Comparison No prior study available for comparison. Recommendations, Care & Conclusions Consider a KRUNAL if clinically appropriate. Measurements 2D Linear Measurements IVSd: 0.82 0.6-0.9/0.6-1.0 cm LVIDd: 4.12 3.9-5.3/4.2-5.9 cm LVIDd Index: 2.05 2.4-3.2/2.2-3.1 cm/m2 LVIDs: 2.77 2.0-3.6 cm LVPWd: 0.87 0.7-1.1 cm Ao Root: 3.80 2.1-3.5 cm LA Diam: 3.60 2.7-3.8/3.0-4.0 cm LAIDs Index: 1.79 1.5-2.3 cm/m2 LV Mass: 130.71 67-162/88-224 g LV Mass Index: 65.03 43-95/49-115 g/m2 LVOT Diam: 2.10 3.0+(-)1.3 cm Mitral Valve MV Pk E: 0.65 MV PK A: 0.60 MV Decel Time: 115.00 E/A: 1.10 E'Lateral: 6.74 E'Medial: 5.87 E/E' Med: 11.10 E/E' Lat: 9.60 PHT: 34.00 MVA PHT: 6.47 Decel Maries: 5.65 Aortic Valve AoV Pk Baljinder: 1.44 AoV Mn Baljinder: 0.90 AoV VTI: 0.24 AoV Pk Grad: 8.00 Aov Mn Grad: 4.00 NOEL Cont.VTI: 3.08 LVOT LVOT Pk Baljinder: 1.19 LVOT Mn Baljinder: 0.80 LVOT VTI: 0.21 LVOT Pk Grad: 6.00 LVOT Mn Grad: 3.00 LVOT Diam: 2.10 LVOT Area: 3.46 Diastolic Function MV Pk E: 0.65 MV Pk A: 0.60 E/A: 1.10 E'Medial: 5.87 E/E' Med: 11.10 E' Laterial: 6.74 E/E' Lat: 9.60 Tricuspid Valve TR Pk Baljinder: 1.95 TR Pk Grad: 15.00 RA Press: 3.00 RVSP: 18.00 Great Vessels Aorta Ao Root-2D: 3.80 2.0-3.7 cm Ao Asc: 3.90 2.1-3.4 cm Pulmonary Valve PV Pk Baljinder: 1.44 Peak PV Grad: 8.00 Updated in Other Vendor System with Status of Final Cruz Leahy MD electronically signed on 11/01/2021 8:14:18 PM with status of Final
[2021-11-01] MEDS: vancomycin HCL 1,000 MG, vancomycin HCL 750 MG in 0.9 % Sodium Chloride 500 ML 267.5 MG IV (14:46)
--- NOTE | 2021-11-01 15:19 | MHC.CM.PN ---
PER ROUNDS PT TO BE SEEN BY UROLOGIST PRIOR TO DC
--- NOTE | 2021-11-01 15:21 | MHC.CM.PN ---
PTS DC ON HOLD HIS HEART RATE WAS HIGH AMB PUT ON HOLD
[2021-11-02] VITALS (7 sets, daily range): BP systolic 105–162; BP diastolic 63–88; PULSE 53–80; RESP 18–20; TEMP 36.2–37.3; O2SAT 97–99
[2021-11-02] MEDS: 0.9 % Sodium Chloride Flush 3 ML SYRINGE IVFLUSH ×2 (08:05→14:11)
[2021-11-02 08:44] LABS: Anion Gap 9 (12-20); Blood Urea Nitrogen 21 mg/dL (9-16); Carbon Dioxide 25 mmol/L (22-29); Chloride 107 mmol/L (96-108); Estimated Glomerular Filt Rate 43; Glucose Random 97 mg/dL (60-115); Potassium 3.9 mmol/L (3.3-5.1); Sodium 137 mmol/L (135-145)
--- NOTE | 2021-11-02 09:42 | MHC.CM.PN ---
spoke with pt re fam with iv antibiotic vs str pt confirms he lives alone pt prefers to go home with vna i f possible pt will need a picc line with 2 weeks iv antbiotics/vanco
--- NOTE | 2021-11-02 12:44 | W.PM.IDCN ---
History of Present Illness Data of Consult Service Date: 11/02/21 Requesting physician: Nathalia Bahena Primary Care Provider: Aida Whelan MD HPI Reason for consult: bacteremia He presents to hospital with right flank pain,05/[address] hydronephrosis with 1.4 mm stone. He has bacteremia with enterococcus faecalis,also found in urine Review of Systems Review of Systems: Yes all other systems are reviewed and are negative PMFSH Past Medical History Medical History Anastomotic stricture of urinary tract Anemia Dizziness GERD (gastroesophageal reflux disease) HTN (hypertension) Hypertension Loss of balance Prostate cancer Urgency incontinence Family History Family History Father No problems noted. Mother Cancer Maternal Grandfather Cancer Family history: reviewed and not pertinent Surgical History Surgical History History of kidney stones History of prostatectomy History of prostatectomy Hx laparoscopic cholecystectomy Social History Social History Household Members: None Household Members Other:: none Housing: Apartment Do you presently have visiting nurse or other home services: No Alcohol intake: never Patient Tobacco Use Status: Former Tobacco user service: No Current occupational status: disabled Meds Allergies Allergy/AdvReac Type Severity Reaction Status Date / Time No Known Allergies Allergy Verified 10/13/21 08:48 [No Known Allergies*] Active Medications: Current Medications Acetaminophen (Acetaminophen 325 Mg Tablet) 650 mg PO Q6H PRN PRN Reason: Pain, Mild (Pain Scale 1-3) Last Admin: 10/31/21 19:39 Dose: 650 mg Documented by: Hydromorphone HCl (Hydromorphone Hcl 0.5 Mg/0.5 Ml Syringe) 0.5 mg IVPUSH Q4H PRN; Protocol PRN Reason: Pain, Severe (Pain Scale 7-10) Vancomycin HCl 1,250 mg/ (Sodium Chloride) 250 mls @ 166.667 mls/hr IV Q24H [facility] Melatonin (Melatonin 3 Mg Tablet) 6 mg PO BEDTIME PRN PRN Reason: Insomnia Pharmacy Consult (Consult Rx Vancomycin Dosing) 1 each MISCELLANE DAILY PRN PRN Reason: Consult order Senna (Sennosides 8.6 Mg Tablet) 17.2 mg PO BEDTIME PRN PRN Reason: Constipation Sodium Chloride (0.9 % Sodium Chloride Flush 3 Ml Syringe) 3 ml IVFLUSH QSHIFT [facility] Last Admin: 11/02/21 08:05 Dose: 3 ml Documented by: Home Medications Medication Instructions Recorded Confirmed Last Taken Type lisinopril 10 mg tablet 10 mg PO DAILY 08/06/20 10/29/21 03/01/21 History Physical Exam Vital Signs: Vital Signs: Last Vital Signs Temp 98.1 F 11/02/21 11:32 Pulse 73 11/02/21 11:32 Resp 20 11/02/21 11:32 BP 105/63 11/02/21 11:32 Pulse Ox 98 11/02/21 11:32 BMI result Body Mass Index 30.8 Const: General: cooperative Eyes: General: appearance normal, both eyes and all related structures Pupils: Equal, round and reactive pupils present Resp: Effort & Inspection: normal respiratory effort Cardio: Rate: regular rate Rhythm: regular rhythm : Other: right flank pain,improved Skin: General skin exam: no rashes or lesions noted Neuro: Cranial nerves: Yes Equal, round and reactive pupils present Extrem: General: Yes normal to inspection Results Labs CBC & Chem 7: 10/31/21 07:14 11/02/21 08:11 Labs: BMP 11/02/21 08:11 Sodium 137 Potassium 3.9 Chloride 107 Carbon Dioxide 25 BUN 21 H Creatinine 1.57 H Calcium 9.0 Microbiology Microbiology Results: Microbiology 10/30/21 Unknown Urine clean catch - Urine malin top Urine Culture - Final Enterococcus faecalis Staphylococcus haemolyticus 10/30/21 01:27 Blood - Venous Blood Culture - Final Enterococcus faecalis 10/30/21 01:27 Blood - Venous Blood Culture - Final Enterococcus faecalis Assessment and Plan (1) Bacteremia: Status: Acute He has enterococcal bacteremia,sensitive to Vancomycin and Ampicillin He has had artificial urinary sphincter placed in 2018 and revised in 2019 He also has had radical prostatectomy due to prostate cancer ,so anatomy cause of recurrent UTIs likely Enterococcus is fairly sensitive but not amenable to prophylaxis since it is resistant to tetracyclines and creatinine too high for nitrofurantoin (2) Acute right flank pain: Status: Acute Would give Ampicillin if patient can tolerate for four weeks Check echo Follow Urology (3) Kidney stone: Status: Acute
--- NOTE | 2021-11-02 12:50 | P.PNIM_ITS ---
Subjective Subjective Date of Service: 11/02/21 Review of Systems Follow up pyelonephritis, stone, no further stone noted Now bacteremic, no fevers overnight pain has gone, patient feels good Denies? chest pain, nausea, vomiting, diarrhea All other systems are reviewed and are negative Physical Exam Vital Signs: Vital Signs: Last Vital Signs Temp 98.1 F 11/02/21 11:32 Pulse 73 11/02/21 11:32 Resp 20 11/02/21 11:32 BP 105/63 11/02/21 11:32 Pulse Ox 98 11/02/21 11:32 BMI result Body Mass Index 30.8 Appearing in no acute distress lung sounds are clear to auscultation heart regular rate rhythm, clear S1, S2 positive bowel sounds, abdomen is soft, nontender neuro patient is alert x3, no focal deficits Objective Data Active Medications Acetaminophen (Acetaminophen 325 Mg Tablet) 650 mg PO Q6H PRN PRN Reason: Pain, Mild (Pain Scale 1-3) Last Admin: 10/31/21 19:39 Dose: 650 mg Documented by: LOUISE Hydromorphone HCl (Hydromorphone Hcl 0.5 Mg/0.5 Ml Syringe) 0.5 mg IVPUSH Q4H PRN; Protocol PRN Reason: Pain, Severe (Pain Scale 7-10) Vancomycin HCl 1,250 mg/ (Sodium Chloride) 250 mls @ 166.667 mls/hr IV Q24H [facility] Melatonin (Melatonin 3 Mg Tablet) 6 mg PO BEDTIME PRN PRN Reason: Insomnia Pharmacy Consult (Consult Rx Vancomycin Dosing) 1 each MISCELLANE DAILY PRN PRN Reason: Consult order Senna (Sennosides 8.6 Mg Tablet) 17.2 mg PO BEDTIME PRN PRN Reason: Constipation Sodium Chloride (0.9 % Sodium Chloride Flush 3 Ml Syringe) 3 ml IVFLUSH QSHIFT [facility] Last Admin: 11/02/21 08:05 Dose: 3 ml Documented by: BILLY Labs CBC & Chem 7: 10/31/21 07:14 11/02/21 08:11 Labs: Laboratory Results - last 24 hr 11/02/21 08:11 Anion Gap 9 L Estim Creat Clear Calc 44.0 Estimated GFR 43 Random Glucose 97 Calcium 9.0 Microbiology Microbiology Results: Microbiology 12/25/21 Unknown Urine Culture - Final Urine clean catch - Urine malin top Enterococcus faecalis Staphylococcus haemolyticus 10/30/21 01:27 Blood Culture - Final Blood - Venous Enterococcus faecalis 10/30/21 01:27 Blood Culture - Final Blood - Venous Enterococcus faecalis Assessment and Plan (1) Bacteremia: Status: Acute (2) Acute pyelonephritis: Status: Acute Assessment and Plan: 76-year-old male with a past medical history of hypertension, GERD, anemia, anastomotic stricture of the urinary tract e, kidney stones, history of prostate cancer, history of recurrent UTIs presented to the hospital with a chief complaint of right flank pain.? Noted to have kidney stone/right-sided hydrone phrosis/pyelonephritis.? Admitted for further management.? Bacteremia Urine culture showing Enterococcus / Streptococcus Blood cultures showing Enterococcus faecalis sensitive to vancomycin Stop Rocephin Awaiting new blood cx, after 48hrs neg, place midline No vegetation on echo Kidney stone. 1.4mm obstructing stone , with right-sided hydronephrosis Follow-up abdominal CT scan showed resolved hydronephrosis and no obstructing stone. Discussed with urology,? no longer requiring intervention Pyelonephritis Stop Rocephin urine culture showing Enterococcus /Streptococcus Waiting for final blood cultures HTN. Stable CKD. Baseline DVT prophylaxis:? SCD boots Code status:? Full code Attending Dr. Ross Quality Stroke Does the patient have a stroke diagnosis?: No VTE Prior VTE?: No VTE Risk Level:: Medical - low VTE Device Contraindication: N/A - Device Ordered VTE Drug Contraindication: Treatment Not Indicated
[2021-11-02] MEDS: Ampicillin Sodium 2 GM in 0.9 % Sodium Chloride 100 ML IV ×2 (14:11→20:21)
[2021-11-03] MEDS: 0.9 % Sodium Chloride Flush 3 ML SYRINGE IVFLUSH ×3 (01:28→19:30)
[2021-11-03] MEDS: Ampicillin Sodium 2 GM in 0.9 % Sodium Chloride 100 ML IV ×4 (01:28→19:30)
[2021-11-03] MEDS: Melatonin 3 MG TABLET 6 MG PO (01:35)
[2021-11-03 03:35] VITALS: BP 109/65; PULSE 71; RESP 15; TEMP 36.7; O2SAT 97
[2021-11-03 07:29] VITALS: BP 103/67; PULSE 66; RESP 18; TEMP 36.9; O2SAT 96
--- NOTE | 2021-11-03 10:07 | HO.PM.IMPN ---
Subjective Subjective Date of Service: 11/03/21 Review of Systems Follow-up bacteremia, pyelonephritis Patient feeling great Denies abdominal pain, nausea, vomiting, diarrhea All other systems are reviewed and are negative Physical Exam Vital Signs: Vital Signs: Last Vital Signs Temp 98.4 F 11/03/21 07:29 Pulse 66 11/03/21 07:29 Resp 18 11/03/21 07:29 BP 103/67 11/03/21 07:29 Pulse Ox 96 11/03/21 07:29 BMI result Body Mass Index 30.8 Appearing in no acute distress lung sounds are clear to auscultation heart regular rate rhythm, clear S1, S2 positive bowel sounds, abdomen is soft, nontender neuro patient is alert x3, no focal deficits Objective Data Active Medications Acetaminophen (Acetaminophen 325 Mg Tablet) 650 mg PO Q6H PRN PRN Reason: Pain, Mild (Pain Scale 1-3) Last Admin: 10/31/21 19:39 Dose: 650 mg Documented by: BROHector Hydromorphone HCl (Hydromorphone Hcl 0.5 Mg/0.5 Ml Syringe) 0.5 mg IVPUSH Q4H PRN; Protocol PRN Reason: Pain, Severe (Pain Scale 7-10) Ampicillin Sodium 2 gm/ Sodium (Chloride) 100 mls @ 100 mls/hr IV Q6H [facility] Last Infusion: 11/03/21 02:43 Dose: 0 mls/hr Documented by: GEM Melatonin (Melatonin 3 Mg Tablet) 6 mg PO BEDTIME PRN PRN Reason: Insomnia Last Admin: 11/03/21 01:35 Dose: 6 mg Documented by: GEM Pharmacy Consult (Consult Rx Vancomycin Dosing) 1 each MISCELLANE DAILY PRN PRN Reason: Consult order Senna (Sennosides 8.6 Mg Tablet) 17.2 mg PO BEDTIME PRN PRN Reason: Constipation Sodium Chloride (0.9 % Sodium Chloride Flush 3 Ml Syringe) 3 ml IVFLUSH QSHIFT [facility] Last Admin: 11/03/21 01:28 Dose: 3 ml Documented by: GEM Labs CBC & Chem 7: 10/31/21 07:14 11/02/21 08:11 Microbiology Microbiology Results: Microbiology 11/01/21 13:29 Blood Culture - Preliminary Blood - Venous No growth after 24 hours. 11/01/21 13:19 Blood Culture - Preliminary Blood - Venous No growth after 24 hours. 10/30/21 Unknown Urine Culture - Final Urine clean catch - Urine malin top Enterococcus faecalis Staphylococcus haemolyticus Assessment and Plan (1) Bacteremia: Status: Acute (2) Acute pyelonephritis: Status: Acute Assessment and Plan: 76-year-old male with a past medical history of hypertension, GERD, anemia, anastomotic stricture of the urinary tract e, kidney stones, history of prostate cancer, history of recurrent UTIs presented to the hospital with a chief complaint of right flank pain.? Noted to have kidney stone/right-sided hydronephrosis/pyelonephritis.? Admitted for further management.? Bacteremia Urine culture showing Enterococcus / Streptococcus Blood cultures showing Enterococcus faecalis sensitive to vancomycin Stop Rocephin No vegetation on echo Discussed case with Infectious Disease Dr. Priti Matos, would prefer IV antibiotics however,due to difficulties at home and the fact that the patient lives alone it would be appropriate to use linezolid for 3 weeks. Kidney stone. 1.4mm obstructing stone , with right-sided hydronephrosis Follow-up abdominal CT scan showed resolved hydronephrosis and no obstructing stone. Discussed with urology,? no longer requiring intervention Pyelonephritis Stop Rocephin urine culture showing Enterococcus /Streptococcus HTN. Stable CKD. Baseline Disposition will discharge tomorrow after 48 hour negative blood cultures DVT prophylaxis:? SCD boots Code status:? Full code Attending Dr. Ross Quality Stroke Does the patient have a stroke diagnosis?: No VTE Prior VTE?: No VTE Risk Level:: Medical - low VTE Device Contraindication: N/A - Device Ordered VTE Drug Contraindication: Treatment Not Indicated
--- NOTE | 2021-11-03 10:16 | P.DS_ITS ---
DS: Providers Provider Date of Service: 11/04/21 <JUAN M Castano - Last Filed: 11/04/21 10:26> Date of admission: 10/29/21 23:31 <Nathalia Bahena NP - Last Filed: 11/03/21 10:23> Date of discharge: 11/04/21 <JUAN M Castano - Last Filed: 11/04/21 10:26> Primary care physician: Aida Whelan MD <Nathalia Bahena NP - Last Filed: 11/03/21 10:23> Consults: 10/29/21 23:32 Consult to Urology Routine Consulting Provider: Nakul Sanchez III Reason for consultation: UTI; Ureteral stone; hydronephrolosis 11/01/21 11:23 Consult to Infectious Diseases Routine Consulting Provider: Any Matos Reason for consultation: Enterococcus faeca bacteremia Has provider been notified: No <Nathalia Bahena NP - Last Filed: 11/03/21 10:23> Attending physician on discharge: Lazarus Ross <JUAN M Castano - Last Filed: 11/04/21 10:26> Discharging clinician: Alexa Del Rio <JUAN M Castano - Last Filed: 11/04/21 10:26> DS: Diagnosis Discharge Diagnosis (1) Bacteremia: Status: Acute <Nathalia Bahena NP - Last Filed: 11/03/21 10:23> (2) Acute pyelonephritis: Status: Acute <Nathalia Bahena NP - Last Filed: 11/03/21 10:23> DS: Summary Hospital Course Hospital Course: HP as per admitting provider 76-year-old male with a past medical history of hypertension, GERD, anemia, anastomotic stricture of the urinary tract e, kidney stones, history of prostate cancer, history of recurrent UTIs presented to the hospital with a chief complaint of right flank pain.?Patient reported will follow up for the past 1 day he has been having right flank pain, associated nausea; denies any diarrhea.? Denies any fever chills cough.? complains of difficulty urination. Denies any chest pain palpitations lightheadedness or dizziness.?Review of all other systems is negative except mentioned above ER course: Per ER team patient noted to have right flank tenderness; CT scan showed 1.4 mm kidney stone, right-sided hydronephrosis, perinephric stranding concerning for pyelonephritis.? Given ceftriaxone.? Urolo gy notified.? Admitted for further management . Bacteremia Urine culture showing Enterococcus / Streptococcus Blood cultures showing Enterococcus faecalis sensitive to vancomycin then changed to ampicillin No vegetation on echo Discussed case with Infectious Disease Dr. Priti Matos, would prefer IV antibiotics however,due to difficulties at home and the fact that the patient lives alone it would be appropriate to use linezolid for 3 weeks. Kidney stone. 1.4mm obstructing stone , with right-sided hydronephrosis Follow-up abdominal CT scan showed resolved hydronephrosis and no obstructing stone. Discussed with urology,? no intervention required Pyelonephritis Initially treated with rocephin urine culture showing Enterococcus /Streptococcus <Nathalia Bahena NP - Last Filed: 11/03/21 10:23> Time Spent with Patient Time attestation: Total time spent providing and/or coordinating discharge services: <Nathalia Bahena NP - Last Filed: 11/03/21 10:23> Discharge coordination time: Greater than 30 minutes <JUAN M Castano - Last Filed: 11/04/21 10:26> Quality: Stroke Does the patient have a stroke diagnosis?: No <JAUN M Castano Last Filed: 11/04/21 10:26> Physical Exam Vital Signs: Vital Signs: Last Vital Signs Temp 98.4 F 11/03/21 07:29 Pulse 66 11/03/21 07:29 Resp 18 11/03/21 07:29 BP 103/67 11/03/21 07:29 Pulse Ox 96 11/03/21 07:29 BMI result Body Mass Index 30.8 <Nathalia Bahena NP - Last Filed: 11/03/21 10:23> Const: Nutritional Appearance: well nourished <JUAN M Castano Last Filed: 11/04/21 10:26> HENMT: Head: Yes normocephalic and Yes atraumatic <JUAN M Castano Last Filed: 11/04/21 10:26> Eyes: Sclerae: sclerae normal <JUAN M Castano Last Filed: 11/04/21 10:26> Resp: Effort & Inspection: normal respiratory effort and no respiratory distress <JUAN M Castano - Last Filed: 11/04/21 10:26> Cardio: Rate: regular rate <JUAN M Castano - Last Filed: 11/04/21 10:26> Rhythm: regular rhythm <JUAN M Castano - Last Filed: 11/04/21 10:26> GI: Palpation (GI): Soft to palpation and nontender <JUAN M Castano - Last Filed: 11/04/21 10:26> Neuro: Cranial nerves: Yes CN's II-XII intact bilaterally and Yes Bilaterally intact EOM present <JUAN M Castano - Last Filed: 11/04/21 10:26> DS: Data Data Completed and Pending Completed studies during hospitalization [Text1]: Procedures Change Drainage Device in Bladder, External Approach (03/01/21) Inspection of Bladder, Via Natural or Artificial Opening Endoscopic (03/01/21) Removal of Artificial Sphincter from Urethra, Open Approach (03/01/21) <Nathalia Bahena NP - Last Filed: 11/03/21 10:23> Labs on day of discharge: Preliminary micro results at discharge 11/01/21 13:29 Blood Culture - Preliminary Blood - Venous No growth after 24 hours. 11/01/21 13:19 Blood Culture - Preliminary Blood - Venous No growth after 24 hours. <Nathalia Bahena NP - Last Filed: 11/03/21 10:23> Discharge Plan Discharge Patient Disposition: Home, Self-Care <Nathalia Bahena NP - Last Filed: 11/03/21 10:23> Discharge Diagnosis: Bacteremia Acute pyelonephritis Renal calculi <Nathalia Bahena NP - Last Filed: 11/03/21 10:23> Bacteremia Acute pyelonephritis Renal calculi <JUAN M Castano - Last Filed: 11/04/21 10:26> Referrals: Any Matos MD [Physician] - None ( Infectious disease provider) Aida Velazquez MD [Primary Care Provider] - 1 Week <Nathalia Bahena NP - Last Filed: 11/03/21 10:23> Discharge Medications: New linezolid 600 mg tablet 600 mg PO BID Qty: 42 RF: 0 Continued omeprazole 20 mg capsule,delayed release(DR/EC) 20 mg PO DAILY 90 Days Qty: 90 RF: 3 lisinopril 10 mg tablet 10 mg PO DAILY RF: 0 <Nathalia Bahena NP - Last Filed: 11/03/21 10:23> Discharge Orders: Discharge Order (Routine); Ordered 11/04/21 Ordered By: Alexa Del Rio <Nathalia Bahena NP - Last Filed: 11/03/21 10:23> Diet: advance to usual diet <Nathalia Bahena NP - Last Filed: 11/03/21 10:23> advance to usual diet <JUAN M Castano - Last Filed: 11/04/21 10:26> Activity on Discharge: As tolerated <Nathalia Bahena NP - Last Filed: 11/03/21 10:23> As tolerated <JUAN M Castano - Last Filed: 11/04/21 10:26> Stand Alone Forms: Patient Portal Discharge page <Nathalia Bahena NP - Last Filed: 11/03/21 10:23> Care Plan Goals: Continue medications as prescribed, complete resolution of infection. <Nathalia Bahena NP - Last Filed: 11/03/21 10:23> Health Concerns: Bacteremia Acute pyelonephritis Renal calculi <Nathalia Bahena NP - Last Filed: 11/03/21 10:23> Plan of Treatment: Follow-up with your primary care provider as needed You have been prescribed a medication called linezolid for blood infection. He will be on this medication for 3 weeks. You may follow-up with the infectious disease doctor if you wish. <Nathalia Bahena NP - Last Filed: 11/03/21 10:23> Assessment: see discharge summary <Nathalia Bahena NP - Last Filed: 11/03/21 10:23>
[2021-11-03 11:03] VITALS: BP 114/74; PULSE 63; RESP 18; TEMP 36.4; O2SAT 97
[2021-11-03 15:00] VITALS: BP 131/84; PULSE 88; RESP 20; TEMP 36.4; O2SAT 90
[2021-11-03 19:06] VITALS: BP 131/77; PULSE 66; RESP 21; TEMP 36.5; O2SAT 98
[2021-11-03 23:08] VITALS: BP 109/67; PULSE 66; RESP 20; TEMP 36.4; O2SAT 96
[2021-11-04] MEDS: Ampicillin Sodium 2 GM in 0.9 % Sodium Chloride 100 ML IV ×2 (00:49→09:25)
[2021-11-04 03:58] VITALS: BP 153/82; PULSE 71; RESP 20; TEMP 36.7; O2SAT 96
[2021-11-04 07:35] VITALS: BP 135/86; PULSE 68; RESP 20; TEMP 36.8; O2SAT 98
[2021-11-04] MEDS: 0.9 % Sodium Chloride Flush 3 ML SYRINGE IVFLUSH (09:26)
[2021-11-04 11:19] VITALS: BP 145/81; PULSE 72; RESP 16; TEMP 36.4; O2SAT 100
--- NOTE | 2021-11-04 11:28 | MHC.CM.PN ---
Patient has been medically cleared for dc to home today, self care. Last IMM addressed yesterday. CM spoke with Patient's Son/Noel, who will transport Patient home today at 2 PM. RN made aware of the plan.
== END 2021-11-04 14:42 | disposition home or self-care (01) | DRG 690 ==
LOC: HO.ED 23:32 → HO.EDOVER 23:46 → HO.IMC 11-01 07:54
PROVIDERS: Nurse Practitioner Acute Care; Physician Assistant; Admitting Provider Hospitalist; Emergency Provider Emergency Medicine; PCP Internal Medicine; Visit Provider Physician Assistant Medical
DX: N13.6 Pyonephrosis (principal); R78.81 Bacteremia; I12.9 Hypertensive chronic kidney disease with stage 1 through stage 4 chronic kidney disease, or unspecified chronic kidney disease; N18.9 Chronic kidney disease, unspecified; B95.2 Enterococcus as the cause of diseases classified elsewhere; Z85.46 Personal history of malignant neoplasm of prostate; Z20.822 Contact with and (suspected) exposure to COVID-19; Z87.440 Personal history of urinary (tract) infections; Z87.891 Personal history of nicotine dependence; Z79.899 Other long term (current) drug therapy
CPT/HCPCS: 36415; 74176; 74177; 80048; 80053; 80202; 81001; 85025; 85027; 87040; 87077; 87086; 87088; 87186; 87205; 87635; 93306; 96361; 96374; 96375; 99285; J0290; J0696; J2270; J2405; J3370; Q9967

== ENCOUNTER 2022-01-07 10:31 | Outpatient (REF) | payer MEDICARE, SELFPAY ==
[2022-01-07 10:46] LABS: MANUAL DIFF FLAG NO
[2022-01-07 11:10] LABS: Basophils Percent Auto 0.6 % (0-2); Eosinophils Absolute Auto 0.2 X10*3/uL (0.0-0.4); Eosinophils Percent Auto 2.9 % (0-4); Hematocrit 41.6 % (42.0-52.0); Hemoglobin 12.7 g/dl (14.0-18.0); Imm Gran Abs Auto 0.01 X10*3/uL (0.00-0.03); Imm Gran Pct Auto 0.2 % (0.0-0.4); Lymphocytes Absolute Auto 1.8 X10*3/uL (1.2-4.9); Mean Corpuscular HGB Conc 30.5 g/dl (31.0-36.0); Mean Corpuscular Volume 91.6 fL (80.0-98.0); Monocytes Absolute Auto 0.5 X10*3/uL (0.1-1.2); Monocytes Percent Auto 10.5 % (2-11); Neutrophils Absolute Auto 2.6 x10*3/uL (2.0-8.3); Neutrophils Percent Auto 50.8 % (45-73); Platelet Count 218 X10*3/uL (160-400); Red Blood Count 4.54 X10*6/uL (4.60-5.80); Red Cell Distribution Width 16.4 % (11.0-16.0); White Blood Count 5.2 X10*3/uL (4.8-10.8)
[2022-01-07 11:42] LABS: Iron 33 mcg/dL (45-160); Percent Iron Saturation 13 % (15-50); Total Iron Binding Capacity 247 mcg/dL (228-428); Unsaturated Iron Binding 214 ug/dL
[2022-01-07 12:07] LABS: Prostate Specific Antigen 1.46 ng/mL (<0.05-4.0)
== END 2022-01-07 10:32 | disposition home or self-care (01) ==
LOC: HO.LAB 10:31
PROVIDERS: PCP Internal Medicine; Visit Provider Urology
DX: Z12.5 Encounter for screening for malignant neoplasm of prostate (principal); R97.21 Rising PSA following treatment for malignant neoplasm of prostate; D64.9 Anemia, unspecified
CPT/HCPCS: 36415; 83540; 84153; 85025

== ENCOUNTER → 2022-01-11 13:19 | Outpatient (BNVA) | payer MEDICARE, SELFPAY | PROVIDERS: PCP Internal Medicine; Visit Provider Urology | DX: C61 Malignant neoplasm of prostate (principal); C79.51 Secondary malignant neoplasm of bone; R32 Unspecified urinary incontinence; R97.21 Rising PSA following treatment for malignant neoplasm of prostate; I10 Essential (primary) hypertension; D50.9 Iron deficiency anemia, unspecified; T83.111A Breakdown (mechanical) of implanted urinary sphincter, initial encounter; Z87.891 Personal history of nicotine dependence; Z90.79 Acquired absence of other genital organ(s); Z92.3 Personal history of irradiation | CPT/HCPCS: Q3014 ==

== ENCOUNTER → 2022-02-01 11:07 | Outpatient (BNVA) | payer MEDICARE, SELFPAY | PROVIDERS: PCP Internal Medicine; Visit Provider Physician Assistant | DX: R10.13 Epigastric pain (principal); D64.9 Anemia, unspecified; Q17.9 Congenital malformation of ear, unspecified; Z78.9 Other specified health status | CPT/HCPCS: 99202 ==

== ENCOUNTER → 2022-02-09 09:15 | Outpatient (REF) | payer OTHER, SELFPAY ==
--- NOTE | ~2022-02-09 | NM_ITS ---
EXAMINATION: NM BONE SCAN OF THE WHOLE BODY CLINICAL INFORMATION: Malignant neoplasm of prostate. COMPARISON: No previous bone scan is available for comparison. The diagnostic CT scan of the abdomen and pelvis, dated 10/30/2021, is available for comparison. TECHNIQUE: Multiple gamma scintillation camera images of the whole body were performed 2 hours following the intravenous administration of 32 mCi Tc-99m MDP. FINDINGS: In the head, no significant abnormalities are present. Foci of mildly increased activity in the alveolar regions of the maxilla bilaterally are likely due to dental disease. In the thoracic cage and upper extremities, there is mildly increased activity in the acromioclavicular and sternoclavicular joints bilaterally and at the costochondral junctions of both first ribs, all likely degenerative. In the spine, the foci of very mildly increased activity present in the lumbar spine. In the pelvis, no significant abnormalities are present. In the lower extremities, there is mildly increased activity in the patellar compartments of both knees, likely degenerative. No other definite bony abnormalities are noted. The urinary bladder and faint visualization of both kidneys are noted. There is a small defect laterally in the upper pole of the right kidney that corresponds to a cyst visible at this site on the 10/30/2021 CT scan. Multiple additional cysts present in both kidneys on that CT scan are not well delineated on these images. The CT scan dated 10/30/2021 shows diffuse degenerative changes in the lumbosacral spine the correspond to mild bone scan abnormalities described above. NM/NM bone scan whole body IMPRESSION: Mild nonspecific abnormalities are noted as described above and these are all likely arthritic or traumatic in etiology. None of these abnormalities is strongly suspicious for metastatic disease.
== END ==
LOC: HO.NUCMED 09:15
PROVIDERS: Visit Provider Urology
DX: C61 Malignant neoplasm of prostate (principal); C79.51 Secondary malignant neoplasm of bone; R97.21 Rising PSA following treatment for malignant neoplasm of prostate
CPT/HCPCS: 78306; A9503

== ENCOUNTER → 2022-02-22 09:38 | Outpatient (BNVA) | payer MEDICARE, SELFPAY | PROVIDERS: PCP Internal Medicine; Visit Provider Urology | DX: R97.21 Rising PSA following treatment for malignant neoplasm of prostate (principal); C61 Malignant neoplasm of prostate | CPT/HCPCS: 96402; 99212; J9217 ==

== ENCOUNTER 2022-03-30 10:22 | Day surgery (SDC) | payer OTHER, SELFPAY ==
--- NOTE | 2022-03-29 10:31 | HO.ANESPROP2 ---
Documented by User: Kasia Roberson NP 03/29/22 10:32 HPI - Anesthesia Eval Consult details Narrative: 77yo M for Upper Endoscopy and Colonoscopy [facility] Active Problems Active Problems: All Active Problems (Updated 03/24/22 @ 14:27 by Robert Moody MD) Physical exam (Acute) Ear anomaly (Acute) Language barrier (Acute) Epigastric pain (Acute) Iron deficiency anemia (Acute) Rising PSA following treatment for malignant neoplasm of prostate (Acute) Suprapubic catheter dysfunction (Acute) Cuff erosion of artificial urinary sphincter (Acute) Anemia (Acute) Anastomotic stricture of urinary tract (Acute) Prostate cancer (Acute) Chronic UTI (urinary tract infection) (Acute) Hypertension (Acute) Loss of balance (Acute) Dizziness (Acute) Past Medical History Medical History Anastomotic stricture of urinary tract Anemia Dizziness Ear anomaly Epigastric pain GERD (gastroesophageal reflux disease) HTN (hypertension) Hypertension Iron deficiency anemia Loss of balance Physical exam Prostate cancer Urgency incontinence Family History Family History Father No problems noted. Mother Cancer Maternal Grandfather Cancer Family history of problems with anesthesia: No Surgical History Surgical History History of eye prosthesis History of kidney stones History of prostatectomy History of prostatectomy Hx laparoscopic cholecystectomy History of Problems with Anesthesia: No Social History Social History Household Members: None Household Members Other:: none Housing: Apartment Are you a primary career development counselor to a significant other at home: No Do you presently have visiting nurse or other home services: No Alcohol intake: never Patient Tobacco Use Status: Former Tobacco user Tobacco use type: Cigarette e-Cigarette/Vaping Use: Never Used Second Hand Smoke Exposure: No Use of substances other than those prescribed or required for medical reasons: No Are you DNR?: No Advance Directives: No Advance Directives Information Provided: Yes service: No Current occupational status: retired and disabled Cognitive needs: No Hearing needs: No Vision needs: Yes Meds Allergies Allergy/AdvReac Type Severity Reaction Status Date / Time No Known Allergies Allergy Verified 03/24/22 14:17 [No Known Allergies*] Exam Exam Date and Time: March 29, 2022 1031 Pertinent Lab Results Pertinent Lab Results: Laboratory Tests 03/24/22 03/24/22 14:52 14:52 WBC 6.2 Hgb 13.7 L Hct 43.1 Plt Count 208 Sodium 138 Potassium 4.9 D Chloride 106 Carbon Dioxide 28 BUN 19 H Creatinine 1.53 H Narrative Narrative: ECHO 10/2021 Conclusions: - Normal left ventricular size, thickness, systolic function, and wall motion. ? - Normal right ventricular cavity size and systolic function.? ? - No significant valvular or pericardial pathology.?? Assessment and Plan Assessment Anesthesia Assessment: Chart Reviewed Final Anesthetic Review Family History of Problems with Anesthesia: No History of Problems with Anesthesia: No Documented by User: Mikayla Oconnell MD 03/30/22 12:31 [facility] Active Problems Active Problems: All Active Problems (Updated 03/24/22 @ 14:27 by Robert Moody MD) Physical exam (Acute) Ear anomaly (Acute) Language barrier (Acute) Epigastric pain (Acute) Iron deficiency anemia (Acute) Rising PSA following treatment for malignant neoplasm of prostate (Acute) Suprapubic catheter dysfunction (Acute) Cuff erosion of artificial urinary sphincter (Acute) Anemia (Acute) Anastomotic stricture of urinary tract (Acute) Prostate cancer (Acute) Chronic UTI (urinary tract infection) (Acute) Hypertension (Acute) Loss of balance (Acute) Dizziness (Acute) 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 Mother Cancer Maternal Grandfather Cancer Surgical History Surgical History History of eye prosthesis History of kidney stones History of prostatectomy History of prostatectomy Hx laparoscopic cholecystectomy Social History Social History Household Members: None Household Members Other:: none Housing: Apartment Are you a primary career development counselor to a significant other at home: No Do you presently have visiting nurse or other home services: No Alcohol intake: never Patient Tobacco Use Status: Former Tobacco user Tobacco use type: Cigarette e-Cigarette/Vaping Use: Never Used Second Hand Smoke Exposure: No Use of substances other than those prescribed or required for medical reasons: No Are you DNR?: No Advance Directives: No Advance Directives Information Provided: Yes service: No Current occupational status: retired and disabled Cognitive needs: No Hearing needs: No Vision needs: Yes Meds Allergies Allergy/AdvReac Type Severity Reaction Status Date / Time No Known Allergies Allergy Verified 03/24/22 14:17 [No Known Allergies*] Exam Height,Weight and Vital Signs: Height 5 ft 7 in Weight 83.915 kg Vital Signs Temp Pulse Resp BP Pulse Ox 03/30/22 11:24 98.4 F 70 16 140/82 H 98 Narrative Narrative: ECHO 10/2021 Conclusions: - Normal left ventricular size, thickness, systolic function, and wall motion. EF 55-60% ? - Normal right ventricular cavity size and systolic function.? ? - No significant valvular or pericardial pathology.?? Airway Mallampati Class: I TM Dist: >3cm Neck ROM: Limited (Some discomfort Right shoulder ) Loose/Missing/Broken Teeth: No Heart: RRR Lungs: CTAB Assessment and Plan Assessment Anesthesia Assessment: Anesthesia Plan Discussed Final Anesthetic Review NPO: Yes ASA Class: III Final Preanesthetic Review: No Changes in Pt Med Stat, Meds/Allgs Chart Reviewed, Consent Obtained/Reviewed and Anes Risks/Benef Reviewed Patient Risk: Intermediate Procedure Risk: Low Assessment/Block/Sedation in SS: Assess/Block/Sedation-SS Anesthetic Plan Anesthetic Plan: MAC: Disposition: Standard PACU
--- NOTE | 2022-03-30 10:55 | P.HPSUR_ITS ---
Pre-Procedural Eval Section A Date of Service: 03/30/22 Section B Chief Complaint: Anemia, Relevant Family History (Specify if Yes): No Relevant Social History: None Present Medications: see Short Stay Collaborative assessment Medical History: Significant History (Anastomotic stricture of urinary tract Anemia Dizziness Ear anomaly Epigastric pain GERD (gastroesophageal reflux disease) HTN (hypertension) Hypertension Iron deficiency anemia Loss of balance Physical exam Prostate cancer Urgency incontinence) History of Previous Operations: Relevant previous surgery/procedure and date(s) (History of eye prosthesis History of kidney stones History of prostatectomy History of prostatectomy Hx laparoscopic cholecystectomy) Allergies: Allergies Allergy/AdvReac Type Severity Reaction Status Date / Time No Known Allergies Allergy Verified 03/24/22 14:17 [No Known Allergies*] Review of Systems Sugical H&P ROS: Negative: Constitution, Cardiovascular, Respiratory, Neurological, Psychiatric, Hem-Onc, Allergic/Immunologic, Gastrointestinal, Genitourinary, Musculoskeletal, Integumentary, Endocrine and Eyes/Ears/Nose/Throat Exam Surgical H&P Exam: Normal: HEENT, Normal: Heart, Normal: Lungs, Normal: Ex tremities, Normal: Abdomen, Normal: Skin and Normal: Neurological Plan Diagnosis/Plan: Unchanged I have reviewed the history and physical and performed a pertinent physical examination on my patient. No changes have occurred unless specified.
[2022-03-30 11:24] VITALS: BP 140/82; PULSE 70; RESP 16; TEMP 36.9; O2SAT 98; BMI 29.0
[2022-03-30] MEDS: Lactated Ringers 1,000 ML 100 ML IVCONT (11:38)
--- NOTE | 2022-03-30 12:09 | P.OP_ITS ---
Operative Note Operative Note Date of Service: 03/30/22 Narrative: Operative Information Procedure Description: EGD, Colonoscopy Indication: [] Anesthesia: MAC FLEXIBLE TRANSORAL UPPER GASTROINTESTINAL ENDOSCOPY AND COLONOSCOPY PROCEDURE NOTE UPPER ENDOSCOPY Consent: Indications for the procedure and potential complications of bleeding, perforation, reaction to medications and missed diagnosis were discussed with the patient and informed consent was obtained. Instrument: Olympus GIF H 190 J mid size upper endoscope Monitoring: Vital signs and clinical assessment, continuous EKG monitoring, Pulse oximetry, Carbon Dioxide monitoring and blood pressure monitoring were done throughout the procedure. Procedure: The patient was placed in the left lateral decubitis position and pre-procedure medications were administered and a bite block was placed. The endoscope was inserted into the mouth and advanced under direct vision to the third part of duodenum. A careful inspection was made as the upper endoscope was withdrawn including a retroflexed examination of the proximal stomach; Findings and interventions are described below. Findings: Larynx:normal Esophagus: GE junction at 42 cm, diaphragm hiatus at 42 cm, islands of salmon pink tissue at GEJ, bx taken to r/o short segment barretts esophagus. small esophageal inlet patch noted. Stomach: Patchy erythema. Biopsies were obtained. Grade 2 flap valve on retroflexed examination of the cardia. there was small sessile polyp lesion 5-7 mm removed with cold forceps from mid stomach body. Duodenum: Normal bulb and descending duodenum, bx taken Intervention: Biopsies as noted above COLONOSCOPY Instrument: Olympus variable stiffness adult scope 190L Colonoscopy Monitoring: Vital signs and clinical assessment, continuous EKG monitoring, Pulse oximetry, Carbon Dioxide monitoring and blood pressure monitoring were done throughout the procedure. Colon withdrawal time was 20 minutes. Procedure: The patient was placed in the left lateral decubitis position and pre-procedure medications were administered. After a digital rectal examination of the ano-rectum, the video colonoscope was inserted into the rectum and advanced through the colon to the cecum/TI. The colonoscope was slowly withdrawn in a retrograde panoramic fashion and the colon mucosa was carefully examined including a retroflexed view of the rectum. Findings and interventions are described below. Procedure Difficulty: easy Findings: Terminal Ileum-normal Cecum: 7-8 mm sessile polyp removed with forceps Ascending Colon: x2 sessile polyps 6-8 mm removed with cold forceps. 10-12 mm semi pedunculated polyp removed with cold snare. Transverse Colon -normal Descending Colon:normal Sigmoid Colon: moderate diverticulosis with wide mouthed tics Rectum: Retroflexion with medium sized internal hemorrhoids, grade I Anorectum - normal Colon preparation: [place] Bowel Preparation Scale Right colon; 2 Transverse colon: 3 Left colon; 3 (0 = Unprepared colon segment with mucosa not seen due to solid stool that cannot be cleared. 1 = Portion of mucosa of the colon segment seen, but other areas of the colon segment not well seen due to staining, residual stool and/or opaque liquid. 2 = Minor amount of residual staining, small fragments of stool and/or opaque liquid, but mucosa of colon segment seen well. 3 = Entire mucosa of colon segment seen well with no residual staining, small fragments of stool or opaque liquid) Impression and Post Procedure Diagnosis: Endoscopy Findings: gastritis gastric polyp possible barretts. esophagus Colonoscopy Findings: polyps internal hemorrhoids diverticular disease Plan: Await Pathology results Repeat Colonoscopy in 3-4 years due to polyps or earlier if clinically indicated High fiber diet leaflet avoid straining at stool, epsom salts and sitz bath, anusol supps or cream if Barretts pos then repeat EGD in 3-4 years If h pylori pos then treat Above findings were reviewed with the patient and relevant handouts were provided if indicated.
--- NOTE | 2022-03-30 12:09 | P.BOP_ITS ---
Brief Operative Note Date of Service: 03/30/22 Pre-op diagnosis: anemia Post-op diagnosis: same Procedure: see op note Surgeon: Camron Madison MD Anesthesia: MAC Was an Boiler Erector used for this Procedure?: No Estimated blood loss (mL): 0 Condition: stable Disposition: PACU
[2022-03-30 12:44] VITALS: BP 127/77; PULSE 68; RESP 16; TEMP 36.4; O2SAT 99
[2022-03-30 12:59] VITALS: BP 130/73; PULSE 65; RESP 16; TEMP 36.4; O2SAT 99
== END 2022-03-30 13:43 ==
LOC: HO.SSS 10:23
PROVIDERS: PCP Internal Medicine; Visit Provider Internal Medicine Gastroenterology
PROC: (CPT 45385; principal; 2022-03-30 11:50)
DX: D64.9 Anemia, unspecified (principal); D12.2 Benign neoplasm of ascending colon; K63.5 Polyp of colon; K57.30 Diverticulosis of large intestine without perforation or abscess without bleeding; K64.0 First degree hemorrhoids; K29.50 Unspecified chronic gastritis without bleeding; B96.81 Helicobacter pylori [H. pylori] as the cause of diseases classified elsewhere; K31.7 Polyp of stomach and duodenum; K21.9 Gastro-esophageal reflux disease without esophagitis; K44.9 Diaphragmatic hernia without obstruction or gangrene; Q39.8 Other congenital malformations of esophagus; I10 Essential (primary) hypertension; N99.89 Other postprocedural complications and disorders of genitourinary system; N35.919 Unspecified urethral stricture, male, unspecified site; N39.41 Urge incontinence; R42 Dizziness and giddiness; Z79.899 Other long term (current) drug therapy; Q17.9 Congenital malformation of ear, unspecified; Z85.46 Personal history of malignant neoplasm of prostate; Z90.49 Acquired absence of other specified parts of digestive tract; Z87.442 Personal history of urinary calculi; Z87.891 Personal history of nicotine dependence
CPT/HCPCS: 45385; 45380; 43239; 88305; 88342

== ENCOUNTER → 2022-04-26 10:11 | Outpatient (BNVA) | payer OTHER, SELFPAY | PROVIDERS: PCP Internal Medicine; Visit Provider Physician Assistant | DX: A04.8 Other specified bacterial intestinal infections (principal); K64.9 Unspecified hemorrhoids; K57.90 Diverticulosis of intestine, part unspecified, without perforation or abscess without bleeding; D12.6 Benign neoplasm of colon, unspecified | CPT/HCPCS: Q3014 ==

== ENCOUNTER 2022-05-19 11:18 | Outpatient (REF) | payer OTHER, SELFPAY ==
[2022-05-19 13:04] LABS: Prostate Specific Antigen < 0.05 ng/mL (<0.05-4.0)
[2022-05-25 01:17] LABS: Testosterone, Total 9 ng/dL (250-1100)
== END 2022-05-19 11:19 | disposition home or self-care (01) ==
LOC: HO.LAB 11:18
PROVIDERS: Absent Provider Urology; PCP Internal Medicine; Visit Provider Internal Medicine
DX: Z12.5 Encounter for screening for malignant neoplasm of prostate (principal); C61 Malignant neoplasm of prostate
CPT/HCPCS: 36415; 84153; 84403

== ENCOUNTER 2022-06-14 10:08 | Outpatient (REF) | payer OTHER, SELFPAY ==
[2022-06-15 15:10] LABS: H Pylori Breath Test Negative (Negative)
== END 2022-06-14 10:09 | disposition home or self-care (01) ==
LOC: CF 10:08
PROVIDERS: PCP Internal Medicine; Referring Provider Internal Medicine; Visit Provider Physician Assistant
DX: A04.8 Other specified bacterial intestinal infections (principal)
CPT/HCPCS: 36415; 83013; 99211

== ENCOUNTER → 2022-06-21 10:13 | Outpatient (BNVA) | payer OTHER, SELFPAY | PROVIDERS: PCP Internal Medicine; Visit Provider Urology | DX: R97.21 Rising PSA following treatment for malignant neoplasm of prostate (principal); T83.111A Breakdown (mechanical) of implanted urinary sphincter, initial encounter | CPT/HCPCS: Q3014 ==

== ENCOUNTER 2022-09-27 10:20 | Outpatient (REF) | payer OTHER, SELFPAY ==
[2022-09-27 13:04] LABS: Prostate Specific Antigen < 0.10 ng/mL (<0.05-4.0)
== END 2022-09-27 10:21 | disposition home or self-care (01) ==
LOC: HO.LAB 10:20
PROVIDERS: PCP Internal Medicine; Visit Provider Urology
DX: Z12.5 Encounter for screening for malignant neoplasm of prostate (principal); R97.21 Rising PSA following treatment for malignant neoplasm of prostate
CPT/HCPCS: 36415; 84153

== ENCOUNTER → 2022-10-04 13:59 | Outpatient (BNVA) | payer OTHER, SELFPAY | PROVIDERS: PCP Internal Medicine; Visit Provider Urology | DX: C61 Malignant neoplasm of prostate (principal); T83.111 Breakdown (mechanical) of implanted urinary sphincter; R97.21 Rising PSA following treatment for malignant neoplasm of prostate | CPT/HCPCS: 96402; 99212; J9217 ==

== ENCOUNTER 2022-12-30 08:13 | Outpatient (REF) | payer OTHER, SELFPAY ==
--- NOTE | ~2022-12-30 | US_ITS ---
EXAMINATION: US RETROPERITONEAL LIMITED (AORTA) CLINICAL INFORMATION: Personal history of nicotine dependence. COMPARISON: None TECHNIQUE: Finn-scale, color Doppler and spectral Doppler evaluation of the abdominal aorta. FINDINGS: The measurements of the aorta in maximum AP and transverse dimensions respectively are as follows: Proximal: 2.8 x 2.3 cm. Mid: 2.2 x 1.9 cm. Distal: 2.2 x 1.8 cm. PSV: 45.2 cm/s. The measurements of the common iliac arteries in maximum AP and TRV dimensions are as follows: Right Common Iliac Artery: 1.4 x 1.3 cm. Left Common Iliac Artery: 1.6 x 1.1 cm. US/US abdominal aortic aneurysm IMPRESSION: Negative for abdominal aortic aneurysm.
[2022-12-30 10:08] LABS: Prostate Specific Antigen < 0.10 ng/mL (<0.05-4.0)
[2023-01-07 12:14] LABS: Testosterone, Total 13 ng/dL (250-1100)
== END 2022-12-30 08:14 | disposition home or self-care (01) ==
LOC: HO.US 08:13
PROVIDERS: Absent Provider Urology; PCP Internal Medicine; Visit Provider Internal Medicine
DX: R97.21 Rising PSA following treatment for malignant neoplasm of prostate (principal); Z87.891 Personal history of nicotine dependence; Z12.5 Encounter for screening for malignant neoplasm of prostate
CPT/HCPCS: 36415; 76706; 84153; 84403

== ENCOUNTER → 2023-01-11 13:33 | Outpatient (BNVA) | payer OTHER, SELFPAY | PROVIDERS: PCP Internal Medicine; Visit Provider Urology | DX: R32 Unspecified urinary incontinence (principal) | CPT/HCPCS: Q3014 ==

== ENCOUNTER 2023-03-23 08:57 | Outpatient (REF) | payer OTHER, SELFPAY ==
--- NOTE | ~2023-03-23 | FL_ITS ---
PROCEDURE: XR FLUOROSCOPY UPPER GI WITH AIR CLINICAL INFORMATION: Epigastric . COMPARISON: None available. TECHNIQUE: Routine upper GI air-contrast study was performed in upright and lying position. FINDINGS: Following oral administration of thick barium and effervescent granules there is normal propagation of bolus from the oral cavity through the pharynx, esophagus into stomach without any obstruction or narrowing. There is mild indentation of posterior cervical esophageal wall from ventral spondylosis C5-C6 and C6-C7 disc levels. There is no intraluminal filling defect. On placing patient supine and prone lying the course, caliber and peristalsis of the stomach, duodenal bulb and the sweep is normal. There is moderate gastroesophageal reflux without hiatal hernia. FLUOROSCOPY TIME: 1.4 minutes DOSE AREA PRODUCT: 27.537 uGy-m2 (microgray-meter squared) FL/FL upper GI w air IMPRESSION: Moderate gastroesophageal reflux without hiatal hernia. Mild indentation of posterior cervical esophageal wall at the C5-C6 and C6-C7 disc levels from moderate uncovertebral hypertrophic changes.
== END 2023-03-23 08:58 | disposition home or self-care (01) ==
LOC: HO.XRAY 08:57
PROVIDERS: PCP Internal Medicine; Visit Provider Internal Medicine
DX: R10.13 Epigastric pain (principal)
CPT/HCPCS: 74246

== ENCOUNTER 2023-04-12 11:11 | Outpatient (REF) | payer OTHER, SELFPAY ==
[2023-04-12 12:38] LABS: Prostate Specific Antigen < 0.10 ng/mL (<0.05-4.0)
[2023-04-18 06:28] LABS: Testosterone, Total 6 ng/dL (250-1100)
== END 2023-04-12 11:12 | disposition home or self-care (01) ==
LOC: HO.LAB 11:11
PROVIDERS: PCP Internal Medicine; Visit Provider Urology
DX: R97.21 Rising PSA following treatment for malignant neoplasm of prostate (principal); Z12.5 Encounter for screening for malignant neoplasm of prostate
CPT/HCPCS: 36415; 84153; 84403

== ENCOUNTER 2023-04-28 13:27 | Outpatient (AMB) | payer OTHER, SELFPAY ==
--- NOTE | 2023-04-28 14:05 | A.OFFVIS_ITS ---
Intake Intake Visit Reasons: 3M PSA/Testosterone(set) Intake Note: Patient is present for Follow Up Labs Urology Med: None Antibiotic Allergy: None Blood Thinner: None Allergies No Known Allergies [No Known Allergies*] Allergy (Verified 06/05/23 14:09) HPI HPI Comments History of Present Illness Details Chris Burmese-speaking male. He is a patient of Dr. Jordan. He is seen for the following urologic conditions - urinary incontinence - prostate cancer Translation provided in office by qualified medical equipment technician Discussed PSA results Penile prosthetic removed November 2021 at [facility] Planned to have replacement urinary sphincter at [facility] Prescription for penile clamp provided Prostate cancer - prostatectomy 2006 with early failure radiation (2006) and rising PSA GnRH 02/25, 09/27 04/28 <0.1 T6 Prostate cancer diagnosed 2006 Initial therapy radical prostatectomy with positive margins Required follow-up radiation therapy in late 2006 Leakage required intervention with artificial sphincter PSA 10/26 0.65, 01/25 1.5, 05/27 <0.5 T 9, 09/27 <0.5, 12/29 <0.1 T13 Imaging - 01/25 Bone Scan NAD Urinary incontinence Artificial urinary sphincter placed 2016. Revised 2018. Removed February 2021 Assessment at [facility] for sphincter Erectile dysfunction Penile prosthetic placed previously Prosthetic removed by Dr. Hart [facility] 11/2021 [facility] Medical History Anastomotic stricture of urinary tract Anemia Dizziness Ear anomaly Epigastric pain Former smoker GERD (gastroesophageal reflux disease) HTN (hypertension) Hypertension Iron deficiency anemia Loss of balance Physical exam Prostate cancer Urgency incontinence Surgical History History of esophagogastroduodenoscopy (EGD) History of eye prosthesis History of kidney stones History of prostatectomy History of prostatectomy Hx laparoscopic cholecystectomy Hx of colonoscopy Family History Father No problems noted. Mother Cancer Maternal Grandfather Cancer Social History Household Members: None Household Members Other:: none Housing: Apartment Are you a primary infant caregiver to a significant other at home: No Do you presently have visiting nurse or other home services: No Alcohol intake: never Patient Tobacco Use Status: Former Tobacco user Tobacco use type: Cigarette e-Cigarette/Vaping Use: Never Used Second Hand Smoke Exposure: No service: No Current occupational status: retired and disabled Cognitive needs: No Hearing needs: No Vision needs: Yes Review of Systems Const Denies chills and Denies fever(s) Card Reports no additional complaints and Denies syncope Resp Denies cough GI Denies abdominal pain and Denies heartburn Reports as per HPI and Denies change in libido Neuro Denies syncope Psych Denies change in libido Endo Denies change in libido Physical Exam Const General: cooperative, healthy appearing, comfortable and no acute distress Orientation/consciousness: patient oriented x3 HEENT Face and sinus: Yes normal facial exam Mouth: moist mucous membranes Neck Neck: Yes normal visual inspection, Yes full ROM and Yes trachea midline Chest Chest palpation & inspection: normal inspection of the chest Resp Effort & Inspection: normal respiratory effort, able to speak in complete sentences and no respiratory distress GI Inspection: Yes normal to inspection Back/Spine/Pelvis Cervical Spine: normal cervical lordosis Thoracic/Lumbar Spine: thoracic and lumbar spine normal to inspection Skin General skin exam: no rashes or lesions noted Neuro General: patient oriented x3, gait normal, tone normal and moves all extremities Extrem General: Yes normal to inspection and Yes capillary refill normal Assessment & Plan Assessment & Plan (1) Urinary incontinence: Comment: Complete incontinence following radical prostatectomy Code(s): R32 - Unspecified urinary incontinence Plan Three month follow-up PSA Orders: Orders Prostate Specific Antigen 3 Months R97.21 - Rising PSA following treatment for malignant neoplasm of prostate Testosterone, Total 3 Months R97.21 - Rising PSA following treatment for malignant neoplasm of prostate Referrals Urology Referral R97.21 - Rising PSA following treatment for malignant neoplasm of prostate, R32 - Unspecified urinary incontinence Patient Instructions: Imaging studies, laboratory and physical exam results were discussed and reviewed in detail. No major barriers to patient understanding were identified. An opportunity to ask questions regarding the treatment plan was provided. All questions were answered. The patient expressed understanding and agreement with the above treatment plan. The patient is aware they should contact our office by phone for worsening of their current condition or the appearance of new urologic symptoms. Compliance is encouraged with any medications and followup testing that is ordered. It is a privilege to participate in the urologic care of your patient. If you have any questions or concerns regarding treatment for the above conditions, or other urologic issues, please do not hesitate to contact me. The office telephone contact is [phone]. This note is constructed using voice recognition software. While every effort has been made to ensure accuracy improvement engineer errors may have been included. Yours sincerely, Dr John Osman MD, [facility] - Urology Providers of Expert, Compassionate Care for the Genitourinary System Coding Level of Care Code Est Pt Level 3 (50425) Diagnoses Urinary incontinence R32
== END 2023-04-28 14:29 | disposition home or self-care (01) ==
LOC: HO.HUSH 13:27
PROVIDERS: PCP Internal Medicine; Visit Provider Urology
DX: R32 Unspecified urinary incontinence (principal)
CPT/HCPCS: 99213

== ENCOUNTER → 2023-04-28 13:27 | Outpatient (BNVA) | payer OTHER, SELFPAY | PROVIDERS: PCP Internal Medicine; Visit Provider Urology | DX: C61 Malignant neoplasm of prostate (principal); R32 Unspecified urinary incontinence; Z90.79 Acquired absence of other genital organ(s); Z87.442 Personal history of urinary calculi | CPT/HCPCS: 99212 ==

== ENCOUNTER 2023-06-05 14:01 | Outpatient (AMB) | payer OTHER, SELFPAY ==
--- NOTE | 2023-06-05 14:09 | MHC.OFFVIS ---
Intake Vital Signs 06/05/23 14:11 Height 5 ft 7 in Weight 200 lb BMI 31.3 BP 119/73 Blood Pressure Location Lt brachial Position Sitting Pulse 62 Intake Visit Reasons: Gastroesophageal reflux disease (GERD) Intake Note: Patient follow up for GERD. Patient cc: abdominal pain on and off, Omeprzole is helping with GERD, and denies any other GI issues. Industrial Truck Driver Required: Yes Accompanied by: Self / Same As Patient Allergies No Known Allergies [No Known Allergies*] Allergy (Verified 06/05/23 14:09) Medication List - Last Reconciled 06/05/23 by Jane Wilson PA-C [adult diapers pull-ups As directed] lisinopril 10 mg PO DAILY 90 days meclizine (Dramamine (meclizine)) 25 mg PO TID miscellaneous medical supply ([employer] Kelly Incontin Clamp) As directed omeprazole 20 mg PO BID 14 days [wipes As directed] HPI HPI Comments History of Present Illness Details A 78 y/o male he is unsure why he is here- omeprazole help a lot he has been taking it for about 10 years- Every once in a while epigastric pain/ comes and goes-after eating- Hx CBD stones- Omar Appetite is ok- No nausea, vomiting, hematemesis, hematochezia fever or chills PFSH Medical History Anastomotic stricture of urinary tract Anemia Dizziness Ear anomaly Epigastric pain Former smoker GERD (gastroesophageal reflux disease) HTN (hypertension) Hypertension Iron deficiency anemia Loss of balance Physical exam Prostate cancer Urgency incontinence Surgical History History of esophagogastroduodenoscopy (EGD) History of eye prosthesis History of kidney stones History of prostatectomy History of prostatectomy Hx laparoscopic cholecystectomy Hx of colonoscopy Family History Father No problems noted. Mother Cancer Maternal Grandfather Cancer Social History Household Members: None Household Members Other:: none Housing: Apartment Are you a primary critical care cns to a significant other at home: No Do you presently have visiting nurse or other home services: No Alcohol intake: never Patient Tobacco Use Status: Former Tobacco user Tobacco use type: Cigarette e-Cigarette/Vaping Use: Never Used Second Hand Smoke Exposure: No service: No Current occupational status: retired and disabled Cognitive needs: No Hearing needs: No Vision needs: Yes Review of Systems Const All systems reviewed & are unremarkable except as noted in HPI and below Card Denies chest pain and Denies dyspnea Resp Denies dyspnea GI Reports abdominal pain and Reports heartburn Physical Exam Vital Signs: Last Vital Signs Pulse 62 06/05/23 14:11 BP 119/73 06/05/23 14:11 BMI result Body Mass Index 31.3 Const General: cooperative, healthy appearing, comfortable, no acute distress and well groomed Orientation/consciousness: patient oriented x3 Limitations: language barrier Eyes Eyelids: Yes eyelid abnormality (OS) Sclerae: sclerae normal Resp Effort & Inspection: normal respiratory effort and able to speak in complete sentences Auscultation: clear to auscultation bilaterally and no wheezes GI Palpation (GI): Soft to palpation and nontender Auscultation: normal bowel sounds Skin General skin exam: no rashes or lesions noted Neuro General: patient oriented x3 Extrem General: Yes full ROM Psych Appearance: grossly normal and well kempt Mental Status: mental status grossly normal Speech and movement: Normal speech and movement present and Clear speech present Affect: normal affect Attitude: cooperative Thought process: Normal thought process present Thought content: Normal thought content present Results Reviewed Results Reviewed: 03/27/ Impression and Post Procedure Diagnosis: Endoscopy Findings: gastritis gastric polyp possible barretts. esophagus Colonoscopy Findings: polyps internal hemorrhoids diverticular disease Plan: Await Pathology results Repeat Colonoscopy in 3-4 years due to polyps or earlier if clinically indicated High fiber diet leaflet avoid straining at stool, epsom salts and sitz bath, anusol supps or cream if Barretts pos then repeat EGD in 3-4 years If h pylori pos then treat Above findings were reviewed with the patient and relevant handouts were provided if indicated. Assessment & Plan Assessment & Plan (1) GERD (gastroesophageal reflux disease): Code(s): K21.9 - Gastro-esophageal reflux disease without esophagitis (2) Epigastric pain: Comment: Denies any abdominal pain Code(s): R10.13 - Epigastric pain Plan if completes ppi- will refill- does not need to come to office U/S-comment CBD CBC, CMP Orders: Orders Comprehensive Met. Panel 06/05/23 K21.9 - Gastro-esophageal reflux disease without esophagitis, R10.13 - Epigastric pain Complete Blood Count Auto Diff 06/05/23 R10.13 - Epigastric pain US abdomen complete 06/05/23 K21.9 - Gastro-esophageal reflux disease without esophagitis, R10.13 - Epigastric pain Patient Instructions: Update CBC CMP as well as scheduled for abdominal ultrasound prep comment CBD Continue PPI Reflux precautions review Encouraged to call questions or concerns Will follow back after ultrasound sooner if indicated Coding Level of Care Code Est Pt Level 3 (38760) Diagnoses GERD (gastroesophageal reflux disease) K21.9 Epigastric pain R10.13 Time Spent (min) 30 Comment Industrial Truck Driver device
[2023-06-05 14:11] VITALS: BP 119/73; PULSE 62; BMI 31.3
== END 2023-06-05 15:10 | disposition home or self-care (01) ==
PROVIDERS: PCP Internal Medicine; Visit Provider Physician Assistant
DX: K21.9 Gastro-esophageal reflux disease without esophagitis (principal); R10.13 Epigastric pain
CPT/HCPCS: 99213

== ENCOUNTER → 2023-06-05 14:01 | Outpatient (BNVA) | payer OTHER, SELFPAY | PROVIDERS: PCP Internal Medicine; Visit Provider Physician Assistant | DX: K21.9 Gastro-esophageal reflux disease without esophagitis (principal); R10.13 Epigastric pain | CPT/HCPCS: 99212 ==

== ENCOUNTER 2023-06-11 14:39 | Emergency (ER) | payer OTHER, SELFPAY ==
[2023-06-11 15:13] VITALS: BP 144/67; PULSE 88; RESP 20; TEMP 36.6; O2SAT 99; BMI 31.6
--- NOTE | 2023-06-11 15:13 | ED.GENADULT ---
HPI - General Adult General Chief complaint: Extremity Injury, Lower Stated complaint: L toes swollen Time Seen by Provider: 06/11/23 16:13 Source: patient Mode of arrival: ambulatory Limitations: no limitations History of Present Illness HPI narrative: Patient with history of hypertension and CKD noticed pain in the left 1st metatarsal since yesterday with Boyd and swelling no history of trauma patient with throbbing pain no history of gout no fever no chills Related Data Previous Rx's Medication Instructions Recorded meclizine 25 mg tablet (Dramamine 25 mg PO TID #60 tabs 12/06/22 (meclizine)) miscellaneous medical supply (Bard #1 ea 01/11/23 Kelly Incontin Clamp) lisinopril 10 mg tablet 10 mg PO DAILY 90 days #90 tabs 01/12/23 adult diapers pull-ups #240 ea 05/03/23 wipes #240 ea 05/03/23 omeprazole 20 mg capsule,delayed 20 mg PO BID 14 days #60 caps 05/16/23 release allopurinol 100 mg tablet 50 mg PO DAILY #30 tabs 06/11/23 colchicine (gout) 0.6 mg tablet 0.3 mg PO DAILY #30 tabs 06/11/23 prednisone 20 mg tablet 40 mg PO DAILY #10 tabs 06/11/23 Allergies Allergy/AdvReac Type Severity Reaction Status Date / Time No Known Allergies Allergy Verified 06/05/23 14:09 [No Known Allergies*] Review of Systems Review of Systems: Yes all other systems are reviewed and are negative PMFSH Past Medical History Medical History Anastomotic stricture of urinary tract Anemia Dizziness Ear anomaly Epigastric pain Former smoker GERD (gastroesophageal reflux disease) HTN (hypertension) Hypertension Iron deficiency anemia Loss of balance Physical exam Prostate cancer Urgency incontinence Surgical History History of esophagogastroduodenoscopy (EGD) History of eye prosthesis History of kidney stones History of prostatectomy History of prostatectomy Hx laparoscopic cholecystectomy Hx of colonoscopy Family History Family History Father No problems noted. Mother Cancer Maternal Grandfather Cancer Social History Social History Household Members: None Household Members Other:: none Housing: Apartment Are you a primary director critical care to a significant other at home: No Do you presently have visiting nurse or other home services: No Alcohol intake: never Patient Tobacco Use Status: Former Tobacco user Tobacco use type: Cigarette Smoked in Last 30 Days: No e-Cigarette/Vaping Use: Never Used Second Hand Smoke Exposure: No Use of substances other than those prescribed or required for medical reasons: No Advance Directives: No Advance Directives Information Provided: No service: No Current occupational status: retired and disabled Cognitive needs: No Hearing needs: No Vision needs: Yes Physical Exam ED Vital Signs: Vital Signs - 24 hr 06/11/23 15:13 06/11/23 18:27 Temperature 97.9 F Pulse Rate 88 73 Respiratory Rate 20 14 Blood Pressure 144/67 H 148/91 H Pulse Oximetry 99 100 Oxygen Delivery Method Room Air Room Air BMI result Body Mass Index 31.6 Appearance: Alert. Oriented X3. No acute distress. Eyes: PERRLA, No Nystagmus ENT: Pharynx normal. Oral Mucosa moist Neck: Normal inspection. Neck supple. CVS: Normal heart rate and rhythm. Pulses normal. Respiratory: No respiratory distress. Equal air entry bilateral, no wheezing/rales/rhonchi Abdomen: Soft and nontender. Bowel sounds are present, no mass palpable, no CVA tenderness Skin: Skin warm and dry. Normal skin color. Normal skin turgor. Extremities: No lower extremity edema. No calf tenderness Neuro: Oriented X 3. Extrem Ankle/foot/toe images: 1. erythematous swelling with tenderness local warmth Course Course Course Narrative: RME performed by Tiffany Enamorado PA-C. Patient is a 78 year old assigned male at presenting to the emergency department with left foot swelling. Labs and imaging ordered. Patient placed back in the waiting room pending room availability and results. Medications Administered Discontinued Medications Generic Name Dose Route Start Last Admin Trade Name Freq PRN Reason Stop Dose Admin Colchicine 0.6 mg 06/11/23 16:25 06/11/23 16:35 Colchicine 0.6 Mg Tablet PO 06/11/23 16:26 0.6 mg ONCE ONE Administration Dexamethasone 10 mg 06/11/23 16:20 06/11/23 16:35 Dexamethasone 2 Mg Tablet PO 06/11/23 16:21 10 mg ONCE ONE Administration Medical Decision Making Medical Decision Making MDM Narrative: Patient with left 1st metatarsal pain clinically doubt responded to prednisone will discharge patient home on prednisone Lab Data [facility] Lab Attestation statement: I reviewed the patient's lab results. 06/11/23 15:35 06/11/23 15:35 Labs: Lab Results 06/11/23 06/11/23 06/11/23 Range/Units 15:35 15:35 15:35 WBC 8.0 (4.8-10.8) X10*3/uL RBC 4.20 L (4.60-5.80) X10*6/uL Hgb 11.9 L (14.0-18.0) g/dl Hct 38.0 L (42.0-52.0) % MCV 90.5 (80.0-98.0) fL MCH 28.3 (27.0-33.0) pg MCHC 31.3 (31.0-36.0) g/dl RDW 13.2 (11.0-16.0) % Plt Count 178 (160-400) X10*3/uL MPV 10.8 (9.4-12.4) fL Immature Gran % (Auto) 0.4 (0.0-0.4) % Neut % (Auto) 60.1 (45-73) % Lymph % (Auto) 29.2 (20-40) % [place] % (Auto) 8.6 (2-11) % Eos % (Auto) 1.2 (0-4) % Baso % (Auto) 0.5 (0-2) % Lymph # (Auto) 2.3 (1.2-4.9) X10*3/uL [place] # (Auto) 0.7 (0.1-1.2) X10*3/uL Eos # (Auto) 0.1 (0.0-0.4) X10*3/uL Baso # (Auto) 0.0 (0.0-0.2) X10*3/uL Abs Immat Gran (auto) 0.03 (0.00-0.03) X10*3/uL Absolute Neuts (auto) 4.8 (2.0-8.3) x10*3/uL Absolute Nucleated RBC 0.000 (0.0-0.012) X10*3/uL Nucleated RBC % (auto) 0.0 (0.0-0.2) /100WBC Sodium 139 (135-145) mmol/L Potassium 4.4 (3.3-5.1) mmol/L Chloride 106 (96-108) mmol/L Carbon Dioxide 23 (22-29) mmol/L Anion Gap 14 (12-20) BUN 16 (9-16) mg/dL Creatinine 1.63 H (0.5-1.4) mg/dL Estim Creat Clear Calc 41.6 Estimated GFR 41 Random Glucose 139 H (60-115) mg/dL Uric Acid 7.3 H (3.4-7.0) mg/dL Calcium 10.0 (8.4-10.2) mg/dL Magnesium 1.8 (1.6-2.6) mg/dL Total Bilirubin 0.7 (0.0-1.0) mg/dL AST 11 (5-37) U/L ALT 12 (0-40) U/L Alkaline Phosphatase 93 (39-117) U/L B-Natriuretic Peptide 98 (<100) pg/mL Total Protein 7.6 (6.5-8.0) g/dL Albumin 3.9 (3.5-5.0) g/dL Discharge Plan Discharge Clinical Impression: Gout attack Patient Disposition: Home, Self-Care Instructions: Low Purine Diet (ED), Gout (ED) Additional Instructions: Take the medication as prescribed Follow up with PCP in next week for recheck Prescriptions: New prednisone 20 mg tablet 40 mg PO DAILY Qty: 10 0RF allopurinol 100 mg tablet 50 mg PO DAILY Qty: 30 0RF colchicine (gout) 0.6 mg tablet 0.3 mg PO DAILY Qty: 30 0RF No Action lisinopril 10 mg tablet 10 mg PO DAILY 90 Days Qty: 90 3RF (DME) adult diapers pull-ups medium See Rx Instructions .Route .MEDSUPPLY Qty: 240 6RF Rx Instructions: As directed (DME) wipes See Rx Instructions .Route .MEDSUPPLY Qty: 240 11RF Rx Instructions: As directed omeprazole 20 mg capsule,delayed release(DR/EC) 20 mg PO BID 14 Days Qty: 60 3RF meclizine [Dramamine (meclizine)] 25 mg tablet 25 mg PO TID Qty: 60 4RF (DME) [employer] Kelly Incontin Clamp Misc See Rx Instructions .Route Qty: 1 0RF Rx Instructions: As directed Interventions: ED Discharge Assessment Last Done: 06/11/23 18:43 Discharge Date/Time: 06/11/23 18:54 Print Language: Hebrew
[2023-06-11 15:39] LABS: MANUAL DIFF FLAG NO
[2023-06-11 15:40] LABS: Basophils Percent Auto 0.5 % (0-2); Eosinophils Absolute Auto 0.1 X10*3/uL (0.0-0.4); Eosinophils Percent Auto 1.2 % (0-4); Hemoglobin 11.9 g/dl (14.0-18.0); Imm Gran Abs Auto 0.03 X10*3/uL (0.00-0.03); Imm Gran Pct Auto 0.4 % (0.0-0.4); Lymphocytes Absolute Auto 2.3 X10*3/uL (1.2-4.9); Lymphocytes Percent Auto 29.2 % (20-40); Mean Corpuscular HGB Conc 31.3 g/dl (31.0-36.0); Mean Corpuscular Hemoglobin 28.3 pg (27.0-33.0); Mean Corpuscular Volume 90.5 fL (80.0-98.0); Mean Platelet Volume 10.8 fL (9.4-12.4); Monocytes Absolute Auto 0.7 X10*3/uL (0.1-1.2); Monocytes Percent Auto 8.6 % (2-11); Neutrophils Absolute Auto 4.8 x10*3/uL (2.0-8.3); Neutrophils Percent Auto 60.1 % (45-73); Platelet Count 178 X10*3/uL (160-400); Red Cell Distribution Width 13.2 % (11.0-16.0)
[2023-06-11 15:59] LABS: Alanine Aminotransferase 12 U/L (0-40); Albumin Level 3.9 g/dL (3.5-5.0); Alkaline Phosphatase 93 U/L (39-117); Anion Gap 14 (12-20); Aspartate Amino Transferase 11 U/L (5-37); Bilirubin Total 0.7 mg/dL (0.0-1.0); Blood Urea Nitrogen 16 mg/dL (9-16); Carbon Dioxide 23 mmol/L (22-29); Chloride 106 mmol/L (96-108); Creatinine Clr Calc Pharmacy 41.6; Estimated Glomerular Filt Rate 41; Glucose Random 139 mg/dL (60-115); Magnesium 1.8 mg/dL (1.6-2.6); Potassium 4.4 mmol/L (3.3-5.1); Sodium 139 mmol/L (135-145); Total Protein 7.6 g/dL (6.5-8.0)
[2023-06-11 16:13] LABS: B Type Natriuretic Peptide 98 pg/mL (<100)
[2023-06-11 16:34] LABS: Uric Acid 7.3 mg/dL (3.4-7.0)
[2023-06-11] MEDS: dexAMETHasone 2 MG TABLET 10 MG PO (16:35)
[2023-06-11] MEDS: Colchicine 0.6 MG TABLET PO (16:35)
--- NOTE | 2023-06-11 17:40 | PC.NURSE ---
Patient presents for swelling in his left foot. The joint to left big toe noted to be swollen at this time. Patient is otherwise well appearing.
[2023-06-11 18:27] VITALS: BP 148/91; PULSE 73; RESP 14; O2SAT 100
== END 2023-06-11 18:54 | disposition home or self-care (01) ==
PROVIDERS: Physician Assistant Medical; Emergency Provider Internal Medicine; PCP Internal Medicine
DX: M10.072 Idiopathic gout, left ankle and foot (principal); R06.02 Shortness of breath; Z79.899 Other long term (current) drug therapy; Z87.891 Personal history of nicotine dependence
CPT/HCPCS: 36415; 80053; 83735; 83880; 84550; 85025; 99284; J8540

== ENCOUNTER 2023-07-20 10:20 | Outpatient (REF) | payer OTHER, SELFPAY ==
[2023-07-20 11:52] LABS: Prostate Specific Antigen < 0.10 ng/mL (<0.05-4.0)
[2023-07-26 16:44] LABS: Testosterone, Free 2.1 pg/mL (30.0-135.0); Testosterone, Total 13 ng/dL (250-1100)
== END 2023-07-20 10:21 | disposition home or self-care (01) ==
LOC: HO.LAB 10:20
PROVIDERS: PCP Internal Medicine; Visit Provider Urology
DX: Z13.89 Encounter for screening for other disorder (principal)
CPT/HCPCS: 36415; 84153; 84402; 84403

== ENCOUNTER 2023-07-26 14:41 | Outpatient (AMB) | payer OTHER, SELFPAY ==
--- NOTE | 2023-07-26 14:55 | MHC.OFFVIS ---
Intake Intake Visit Reasons: 3M PSA/Testosterone(Pending) Intake Note: Patient is present for Follow Up Labs Urology Med: None Antibiotic Allergy: None Blood Thinner: None [facility] Allergies No Known Allergies [No Known Allergies*] Allergy (Verified 07/26/23 14:56) Medication List - Last Reconciled 07/26/23 by John Osman MD [adult diapers pull-ups As directed] allopurinol 50 mg (1/2 x 100 mg) PO DAILY colchicine (gout) 0.3 mg (1/2 x 0.6 mg) PO DAILY lisinopril 10 mg PO DAILY 90 days meclizine (Dramamine (meclizine)) 25 mg PO TID miscellaneous medical supply ([facility] Incontin Clamp) As directed omeprazole 20 mg PO BID 14 days prednisone 40 mg (2 x 20 mg) PO DAILY [wipes As directed] HPI HPI Comments History of Present Illness Details Chris Vietnamese-speaking male. He is a patient of Dr. Jordan. He is seen for the following urologic conditions - urinary incontinence - prostate cancer - hypogonadism Translation provided in office by qualified manager medical writing Testosterone 13, free T 2.1 Six month follow-up PSA with repeat lab work for testosterone Penile prosthetic removed November 2021 at [facility] Planned to have replacement urinary sphincter at [facility] - appointments were canceled Requesting diaper prescription Will be provided Referral to [facility] Dr. Foss for assessment of artificial sphincter revision Prostate cancer - prostatectomy 2006 with early failure radiation (2006) and rising PSA GnRH 02/25, 09/27 Prostate cancer diagnosed 2006 Initial therapy radical prostatectomy with positive margins Required follow-up radiation therapy in late 2006 Leakage required intervention with artificial sphincter PSA 10/26 0.65, 01/25 1.5, 05/27 <0.5 T 09/27 <0.5, 12/29 <0.1 T13, 07/29 <0.1 Imaging - 01/25 Bone Scan NAD Urinary incontinence Artificial urinary sphincter placed 2016. Revised 2018. Removed February 2021 Assessment at [facility] for sphincter Erectile dysfunction Penile prosthetic placed previously Prosthetic removed by [facility] 11/2021 [facility] Medical History Former smoker Physical exam Ear anomaly Epigastric pain Iron deficiency anemia Anemia Urgency incontinence Anastomotic stricture of urinary tract HTN (hypertension) GERD (gastroesophageal reflux disease) Prostate cancer Hypertension Loss of balance Dizziness Surgical History History of esophagogastroduodenoscopy (EGD) Hx of colonoscopy History of eye prosthesis History of prostatectomy History of kidney stones Hx laparoscopic cholecystectomy History of prostatectomy Family History Father No problems noted. Mother Cancer Maternal Grandfather Cancer Social History Household Members: None Household Members Other:: none Housing: Apartment Are you a primary career development facilitator to a significant other at home: No Do you presently have visiting nurse or other home services: No Alcohol intake: never Patient Tobacco Use Status: Former Tobacco user Tobacco use type: Cigarette e-Cigarette/Vaping Use: Never Used Second Hand Smoke Exposure: No service: No Current occupational status: retired and disabled Cognitive needs: No Hearing needs: No Vision needs: Yes Review of Systems Const Denies chills and Denies fever(s) Card Reports no additional complaints and Denies syncope Resp Denies cough GI Denies abdominal pain and Denies heartburn Reports as per HPI and Denies change in libido Neuro Denies syncope Psych Denies change in libido Endo Denies change in libido Physical Exam Const General: cooperative, healthy appearing, comfortable and no acute distress Orientation/consciousness: patient oriented x3 HEENT Face and sinus: Yes normal facial exam Mouth: moist mucous membranes Neck Neck: Yes normal visual inspection, Yes full ROM and Yes trachea midline Chest Chest palpation & inspection: normal inspection of the chest Resp Effort & Inspection: normal respiratory effort, able to speak in complete sentences and no respiratory distress GI Inspection: Yes normal to inspection Back/Spine/Pelvis Cervical Spine: normal cervical lordosis Thoracic/Lumbar Spine: thoracic and lumbar spine normal to inspection Skin General skin exam: no rashes or lesions noted Neuro General: patient oriented x3, gait normal, tone normal and moves all extremities Extrem General: Yes normal to inspection and Yes capillary refill normal Assessment & Plan Assessment & Plan (1) Urinary incontinence: Comment: Complete incontinence following radical prostatectomy Code(s): R32 - Unspecified urinary incontinence Qualifiers: Urinary Incontinence type: continuous leakage Qualified Code(s): N39.45 - Continuous leakage (2) Prostate cancer: Comment: Prior prostatectomy with external beam radiation for failure Code(s): C61 - Malignant neoplasm of prostate (3) Rising PSA following treatment for malignant neoplasm of prostate: Code(s): R97.21 - Rising PSA following treatment for malignant neoplasm of prostate Plan Four month follow-up PSA Orders: Referrals Urology Referral T83.111A - Breakdown (mechanical) of implanted urinary sphincter, initial encounter Medications: New miscellaneous medical supply (B[facility] Kelly Incontin Clamp) As directed 1 ea 0RF T83.111A - Breakdown (mechanical) of implanted urinary sphincter, initial encounter Changed From [adult diapers pull-ups] As directed 210 ea 6RF R32 - Unspecified urinary incontinence To [adult diapers pull-ups] As directed 210 ea 6RF R32 - Unspecified urinary incontinence Patient Instructions: Imaging studies, laboratory and physical exam results were discussed and reviewed in detail. No major barriers to patient understanding were identified. An opportunity to ask questions regarding the treatment plan was provided. All questions were answered. The patient expressed understanding and agreement with the above treatment plan. The patient is aware they should contact our office by phone for worsening of their current condition or the appearance of new urologic symptoms. Compliance is encouraged with any medications and followup testing that is ordered. It is a privilege to participate in the urologic care of your patient. If you have any questions or concerns regarding treatment for the above conditions, or other urologic issues, please do not hesitate to contact me. The office telephone contact is [phone]. This note is constructed using voice recognition software. While every effort has been made to ensure accuracy sports equipment racker errors may have been included. Yours sincerely, Dr John Osman MD, [facility] - Urology Providers of Expert, Compassionate Care for the Genitourinary System Coding Level of Care Code Est Pt Level 3 (62593) Diagnoses Continuous leakage of urine N39.45 Urinary Incontinence type: continuous leakage Prostate cancer C61 Rising PSA following treatment for malignant neoplasm of prostate R97.21
== END 2023-07-26 15:34 | disposition home or self-care (01) ==
PROVIDERS: PCP Internal Medicine; Visit Provider Urology
DX: N39.45 Continuous leakage (principal); C61 Malignant neoplasm of prostate; R97.21 Rising PSA following treatment for malignant neoplasm of prostate
CPT/HCPCS: 99213

== ENCOUNTER → 2023-07-26 14:41 | Outpatient (BNVA) | payer OTHER, SELFPAY | PROVIDERS: PCP Internal Medicine; Visit Provider Urology | DX: N39.45 Continuous leakage (principal); C61 Malignant neoplasm of prostate; R97.21 Rising PSA following treatment for malignant neoplasm of prostate | CPT/HCPCS: 99212 ==

== ENCOUNTER 2023-11-23 10:17 | Outpatient (REF) | payer OTHER, SELFPAY ==
[2023-11-23 11:51] LABS: Prostate Specific Antigen < 0.10 ng/mL (<0.05-4.0)
== END 2023-11-23 10:18 | disposition home or self-care (01) ==
LOC: HO.LAB 10:17
PROVIDERS: Visit Provider Urology
DX: Z12.5 Encounter for screening for malignant neoplasm of prostate (principal); R97.21 Rising PSA following treatment for malignant neoplasm of prostate
CPT/HCPCS: 36415; 84153

== ENCOUNTER 2023-11-28 15:01 | Outpatient (AMB) | payer OTHER, SELFPAY ==
--- NOTE | 2023-11-28 15:35 | MHC.OFFVIS ---
Intake Intake Visit Reasons: 4m/PSA(set) Intake Note: Patient presents today for a follow up: PSA Blood thinners: None Allergies to antibiotics: None PVR: 135 Patient was unable to provide urine sample. Patient also stated he always leaks and uses pull ups. Transcribing Machine Operator Required: Yes Accompanied by: Self / Same As Patient Allergies No Known Allergies [No Known Allergies*] Allergy (Verified 07/26/23 14:56) HPI HPI Comments History of Present Illness Details Chris Uruguayan-speaking male. He is a patient of Dr. Jordan. He is seen for the following urologic conditions - urinary incontinence - prostate cancer - hypogonadism Translation provided in office by qualified medical laboratory technical officer Plan office cystoscopy may benefit from sling Testosterone 13, free T 2.1 Six month follow-up PSA with repeat lab work for testosterone Penile prosthetic removed November 2021 at [facility] Prostate cancer - prostatectomy 2006 with early failure radiation (2006) and rising PSA GnRH 02/25, 09/27 Prostate cancer diagnosed 2006 Initial therapy radical prostatectomy with positive margins Required follow-up radiation therapy in late 2006 Leakage required intervention with artificial sphincter PSA 10/26 0.65, 01/25 1.5, 05/27 <0.5 T 9, 09/27 <0.5, 12/29 <0.1 T13, 07/29 <0.1, 11/29 <0.1 Imaging - 01/25 Bone Scan NAD Urinary incontinence Artificial urinary sphincter placed 2016. Revised 2019. Removed February 2021 Assessment at [facility] for sphincter Erectile dysfunction Penile prosthetic placed previously Prosthetic removed by [facility] 11/2021 [facility] Medical History Former smoker Physical exam Ear anomaly Epigastric pain Iron deficiency anemia Anemia Urgency incontinence Anastomotic stricture of urinary tract HTN (hypertension) GERD (gastroesophageal reflux disease) Prostate cancer Hypertension Loss of balance Dizziness Surgical History History of esophagogastroduodenoscopy (EGD) Hx of colonoscopy History of eye prosthesis History of prostatectomy History of kidney stones Hx laparoscopic cholecystectomy History of prostatectomy Family History Father No problems noted. Mother Cancer Maternal Grandfather Cancer Social History Household Members: None Household Members Other:: none Housing: Apartment Are you a primary progressive care unit registered nurse to a significant other at home: No Do you presently have visiting nurse or other home services: No Alcohol intake: never Patient Tobacco Use Status: Former Tobacco user Tobacco use type: Cigarette e-Cigarette/Vaping Use: Never Used Second Hand Smoke Exposure: No service: No Current occupational status: retired and disabled Cognitive needs: No Hearing needs: No Vision needs: Yes Review of Systems Const Denies chills and Denies fever(s) Card Reports no additional complaints and Denies syncope Resp Denies cough GI Denies abdominal pain and Denies heartburn Reports as per HPI and Denies change in libido Neuro Denies syncope Psych Denies change in libido Endo Denies change in libido Physical Exam Const General: cooperative, healthy appearing, comfortable and no acute distress Orientation/consciousness: patient oriented x3 HEENT Face and sinus: Yes normal facial exam Mouth: moist mucous membranes Neck Neck: Yes normal visual inspection, Yes full ROM and Yes trachea midline Chest Chest palpation & inspection: normal inspection of the chest Resp Effort & Inspection: normal respiratory effort, able to speak in complete sentences and no respiratory distress GI Inspection: Yes normal to inspection Back/Spine/Pelvis Cervical Spine: normal cervical lordosis Thoracic/Lumbar Spine: thoracic and lumbar spine normal to inspection Skin General skin exam: no rashes or lesions noted Neuro General: patient oriented x3, gait normal, tone normal and moves all extremities Extrem General: Yes normal to inspection and Yes capillary refill normal Office Procedures Post Void Residual Post Residual Void Post Void Residual (PVR): 135 25012-Uoas Void Residual by ultrasound Assessment & Plan Assessment & Plan (1) Testosterone deficiency: Code(s): E34.9 - Endocrine disorder, unspecified (2) Urinary incontinence: Comment: Complete incontinence following radical prostatectomy Code(s): R32 - Unspecified urinary incontinence Qualifiers: Urinary Incontinence type: continuous leakage Qualified Code(s): N39.45 - Continuous leakage (3) Prostate cancer: Comment: Prior prostatectomy with external beam radiation for failure Code(s): C61 - Malignant neoplasm of prostate Plan Office cystoscopy Orders: Orders AMB Post Void Residual by ultrasound 11/28/23 R33.9 - Retention of urine, unspecified Patient Instructions: Imaging studies, laboratory and physical exam results were discussed and reviewed in detail. No major barriers to patient understanding were identified. An opportunity to ask questions regarding the treatment plan was provided. All questions were answered. The patient expressed understanding and agreement with the above treatment plan. The patient is aware they should contact our office by phone for worsening of their current condition or the appearance of new urologic symptoms. Compliance is encouraged with any medications and followup testing that is ordered. It is a privilege to participate in the urologic care of your patient. If you have any questions or concerns regarding treatment for the above conditions, or other urologic issues, please do not hesitate to contact me. The office telephone contact is [phone]. This note is constructed using voice recognition software. While every effort has been made to ensure accuracy dictating machine typist errors may have been included. Yours sincerely, Dr John Osman MD, [facility] - Urology Providers of Expert, Compassionate Care for the Genitourinary System Coding Level of Care Code Est Pt Level 3 (88907) Diagnoses Testosterone deficiency E34.9 Continuous leakage of urine N39.45 Urinary Incontinence type: continuous leakage Prostate cancer C61 CPT Codes Post Residual Void - PVR CPT Code: 78662-Beav Void Residual by ultrasound ([id number])
== END 2023-11-28 16:11 | disposition home or self-care (01) ==
PROVIDERS: PCP Internal Medicine; Visit Provider Urology
DX: E34.9 Endocrine disorder, unspecified (principal); N39.45 Continuous leakage; C61 Malignant neoplasm of prostate
CPT/HCPCS: 99213

== ENCOUNTER → 2023-11-28 15:01 | Outpatient (BNVA) | payer OTHER, SELFPAY | PROVIDERS: PCP Internal Medicine; Visit Provider Urology | DX: E34.9 Endocrine disorder, unspecified (principal); N39.45 Continuous leakage; C61 Malignant neoplasm of prostate | CPT/HCPCS: 51798; 99212 ==

== ENCOUNTER 2024-08-26 14:35 | Outpatient (AMB) | payer OTHER, SELFPAY ==
--- NOTE | 2024-08-26 14:36 | MHC.PC.OV ---
Vital Signs 08/26/24 14:42 Height 5 ft 7 in Weight 194 lb BMI 30.4 BP 110/70 Blood Pressure Location Lt brachial Position Sitting Intake Visit Reasons: check up Collection Systems Technician Required: No Accompanied by: Self / Same As Patient Allergies No Known Allergies [No Known Allergies*] Allergy (Verified 08/26/24 14:55) Medication List - Last Reconciled 08/26/24 by Aida Whelan MD [adult diapers pull-ups As directed] lisinopril 10 mg PO DAILY 90 days miscellaneous medical supply (Bard Kelly Incontin Clamp) As directed miscellaneous medical supply (B[facility] Kelly Incontin Clamp) As directed omeprazole 20 mg PO BID 14 days [wipes As directed] Tobacco use date assessed: 08/26/24 Fall risk assessment: No Falls in past year Last assessed Fall Risk: 08/26/24 Dental Screening Dental Screen Date: 08/26/24 Did you have a dental visit in the last 12 months?: Yes Did you have a dental problem in the last 6 months where you did not have access to dental care?: No Was dental information given to patient?: Patient has dentist HPI HPI Comments History of Present Illness Details This is a 79-year-old male with hypertension and chronic kidney disease stage 3 that comes today still complaining of vertigo that sometimes happen when he moves his head and sometimes happens while he is walking. He does have chronic tinnitus. I will refer him to vestibular therapy. Blood pressure stable. Will order labs to check his GFR and his last GFR was 40. He also has GERD that has been stable with PPIs. No chest pain or shortness on breath. 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 Mother Cancer Maternal Grandfather Cancer Social History Household Members: None Household Members Other:: none Housing: Apartment Are you a primary manager urgent care to a significant other at home: No Do you presently have visiting nurse or other home services: No Alcohol intake: never Patient Tobacco Use Status: Former Tobacco user Tobacco use type: Cigarette e-Cigarette/Vaping Use: Never Used Second Hand Smoke Exposure: No service: No Current occupational status: retired and disabled Cognitive needs: No Hearing needs: No Vision needs: Yes Questionnaire PHQ-9 Over the last 2 weeks, how often have you been bothered by any of the following problems? 1. Little interest or pleasure in doing things: not at all 2. Feeling down, depressed, or hopeless: not at all 3. Trouble falling or staying asleep, or sleeping too much: not at all 4. Feeling tired or having little energy: not at all 5. Poor appetite or overeating: not at all 6. Feeling bad about yourself - or that you are a failure or have let yourself or your family down: not at all 7. Trouble concentrating on things, such as reading the newspaper or watching television: not at all 8. Moving or speaking so slowly that other people could have noticed. Or the opposite - being so fidgety or restless that you have been moving around a lot more than usual: not at all 9. Thoughts that you would be better off or of hurting yourself in some way: not at all Total score: 0 Depression Screening Interpretation: Negative Depression Screening Done: Yes 04803 - PHQ-9 Billing: Yes Source: Developed by Drs. Nick Richardson, Kyung Cantu, Keshawn Chand and colleagues, with an educational sushant from [employer]. Thrive Questionnaire Date Thrive assessed: 08/26/24 I am a: Patient What is your living situation today?: I have a steady place to live Within the past 12 months, did the food you bought not last and you didn't have the money to get more?: Never true Within the past 12 months, did you worry whether your food would run out before you got money to buy more?: Never true Do you have trouble paying for medicines?: No Do you have trouble getting transportation to medical appointments?: No Do you have trouble paying your heating and electricity bill?: No Do you have trouble taking care of your child, family member or friend?: No Do you have trouble with day-to-day activities such as bathing, preparing meals, shopping, managing finances, etc.?: No Are you currently unemployed and looking for a job?: No Are you interested in more education?: No Please select the resources that you would like help with: None Currently or been in a relationship where the following occur: No concerns reported THRIVE Score: 0 AUDIT C Alcohol Use Questionnaire (AUDIT-C) 1. How often do you have a drink containing alcohol?: Never Total Score: 0 Score Reviewed/Action Taken: No SOCO-7 AMB Questionnaire SOCO-7 Date SOCO - 7 assessed: 08/26/24 Feeling nervous, anxious, or on edge: 0 = Not at all Not being able to stop or control worryin = Not at all Worrying too much about different things: 0 = Not at all Trouble relaxin = Not at all Being so restless that it is hard to sit still: 0 = Not at all Becoming easily annoyed or irritable: 0 = Not at all Feeling afraid as if something awful might happen: 0 = Not at all Total SOCO-7 score (0-4 normal; 5-9 mild; 10-14 moderate; 15-21 severe): 0 Source: Developed by Drs. Nick Richardson, Kyung Cantu, Keshawn Chand and colleagues, with an educational sushant from [employer]. SOCO-7 Assessment Billing SOCO-7 Assessment Tool: SOCO-7 Assessment 40885 Review of Systems Const All systems reviewed & are unremarkable except as noted in HPI and below ENT Reports dizziness and Reports tinnitus Card Denies chest pain at rest, Denies chest pain with activity, Denies edema, Denies irregular heart rhythm, Denies claudication, Denies dyspnea, Denies dyspnea on exertion, Denies orthopnea, Denies paroxysmal nocturnal dyspnea and Denies slow heart rate Resp Denies cough, Denies dyspnea and Denies dyspnea on exertion Denies urinary hesitancy, Denies urinary incontinence and Denies urinary urgency Neuro Reports dizziness Physical exam (Primary Care) Vital Signs: Last Vital Signs BP 110/70 08/26/24 14:42 BMI result Body Mass Index 30.4 BMI Assessment/Plan discussion: High BMI High, discussed plan: lifestyle, weight reduction, dietary and physical activity Tobacco/Smoking Status: Tobacco use Status Tobacco use date assessed 08/26/24 08/26/24 14:43 Patient Tobacco Use Status Former Tobacco user 08/26/24 14:43 Tobacco use type Cigarette 08/26/24 14:43 e-Cigarette/Vaping Use Never Used 08/26/24 14:43 PHQ-9: PHQ-9 Score PHQ-9: Total score 0 08/26/24 14:58 Depression Screening Interpretation: Negative Thrive Assessment: Date of Thrive Assessment Date Thrive assessed 08/26/24 08/26/24 14:43 Currently or been in a relationship where the following occur: No concerns reported Resp Effort & Inspection: normal respiratory effort Auscultation: clear to auscultation bilaterally Cardio Jugular venous distension: no JVD Rate: regular rate Rhythm: regular rhythm Heart sounds: S1 normal heart sound present and S2 normal heart sound present Extrem General: Yes full ROM Office Procedures Flu Questionnaire Does the patient have a severe egg allergy?: No Immunizations Fluarix Triv [id number] (PF) 45 mcg (15 mcg x 3)/0.5 mL IM syringe Performing Provider: Aida Whelan MD [facility] Documented (not given) by: ASIYA Gray on 08/26/24 14:44 Reason Not Given: Received Previously Coding Level of Care Code Est Pt Level 4 (75862) Complex EM visit Add On G2211 Diagnoses Gastroesophageal reflux disease, unspecified whether esophagitis present K21.9 Esophagitis presence: esophagitis presence not specified Stage 3b chronic kidney disease N18.32 Chronic kidney disease stage 3 subtype: stage 3b (GFR 30-44) Benign paroxysmal positional vertigo, unspecified laterality H81.10 Laterality: unspecified laterality Hypertension, unspecified type I10 Hypertension type: unspecified Additional Codes SOCO-7 Assessment Billing - SOCO-7 Assessment Tool: SOCO-7 Assessment 94779 ([id number]) Time Spent (min) 22 Assessment & Plan Assessment & Plan (1) GERD (gastroesophageal reflux disease): Code(s): K21.9 - Gastro-esophageal reflux disease without esophagitis Category: Medical Qualifiers: Esophagitis presence: esophagitis presence not specified Qualified Code(s): K21.9 - Gastro-esophageal reflux disease without esophagitis Plan: Continue PPIs. (2) CKD (chronic kidney disease) stage 3, GFR 30-59 ml/min: Code(s): N18.30 - Chronic kidney disease, stage 3 unspecified Category: Medical Qualifiers: Chronic kidney disease stage 3 subtype: stage 3b (GFR 30-44) Qualified Code(s): N18.32 - Chronic kidney disease, stage 3b Plan: Avoid NSAIDs. Keep blood pressure within goal. (3) BPPV (benign paroxysmal positional vertigo): Code(s): H81.10 - Benign paroxysmal vertigo, unspecified ear Category: Medical Qualifiers: Laterality: unspecified laterality Qualified Code(s): H81.10 - Benign paroxysmal vertigo, unspecified ear Plan: Start vestibular therapy. (4) Hypertension: Code(s): I10 - Essential (primary) hypertension Category: Medical Qualifiers: Hypertension type: unspecified Qualified Code(s): I10 - Essential (primary) hypertension Plan: Continue lisinopril. Blood pressure goal is equal or less than 130/80. Orders: Orders IRON PROFILE Today D50.9 - Iron deficiency anemia, unspecified, D64.9 - Anemia, unspecified Influenza [id number] Immunization Today Z23 - Encounter for immunization PT Evaluation and Treatment Today H81.10 - Benign paroxysmal vertigo, unspecified ear Complete Blood Count Auto Diff Today H81.10 - Benign paroxysmal vertigo, unspecified ear Comprehensive [place]. Panel Fast Today N18.30 - Chronic kidney disease, stage 3 unspecified Lipid Panel Today I10 - Essential (primary) hypertension
[2024-08-26 14:42] VITALS: BP 110/70; BMI 30.4
== END 2024-08-26 15:08 | disposition home or self-care (01) ==
PROVIDERS: PCP Internal Medicine; Visit Provider Internal Medicine
DX: K21.9 Gastro-esophageal reflux disease without esophagitis (principal); N18.32 Chronic kidney disease, stage 3b; H81.10 Benign paroxysmal vertigo, unspecified ear; I10 Essential (primary) hypertension; Z23 Encounter for immunization

== ENCOUNTER → 2024-08-26 14:35 | Outpatient (BNVA) | payer OTHER, SELFPAY | PROVIDERS: PCP Internal Medicine; Visit Provider Internal Medicine | DX: K21.9 Gastro-esophageal reflux disease without esophagitis (principal); I12.9 Hypertensive chronic kidney disease with stage 1 through stage 4 chronic kidney disease, or unspecified chronic kidney disease; N18.32 Chronic kidney disease, stage 3b; H81.10 Benign paroxysmal vertigo, unspecified ear; Z79.899 Other long term (current) drug therapy | CPT/HCPCS: 90471; 96127; 99212 ==